=== PATIENT | male | born 1945 | race Caucasian/White ===

== ENCOUNTER 2016-10-25 13:28 | Day surgery (SDC) | payer MEDICARE ==
[~2016-10-25 13:28] MED LIST: ALPR.5 PO; AMLO5TAB2 PO; APIX2.5T PO; FERR325T PO; FURO1TAB60 PO; GLEE100T PO; GLUC1000 PO; K-TA10TA PO; LEVO100T5 PO; METO50TA PO; PAXI20TA PO; PROT40TA PO; REST30CA PO; SIMV10TA PO; SPIR100T PO; VENTAER INH; [UNRECOGNIZED DRUG - CODE] PO
--- NOTE | 2016-10-25 16:14 | RADRPT ---
EXAM DATE/TIME: 10/25/2016 00:00 [facility] COMPARISON : No previous studies available for comparison. INDICATIONS : Rectal bleeding OBJECTIVE: Temperature: 98 Heart Rate: 76 Blood Pressure: 136/75 Respiratory: 18 Oximetry: 99 PNEUMONIA VACCINE: Yes HISTORY OF PRESENT ILLNESS: Patient is a 71-year-old white male with long history of chronic hepatic insufficiency second floyd to steatohepatitis from medications. He has no history of alcohol abuse hepatitis C. The patient also has esophageal varices treated endoscopically in the past. Despite this he continues to have occ ult bleeding requiring frequent transfusions. Colonoscopy was negative. Capsule endoscopy demonstrate s angiodysplasia in the proximal jejunum and possibly in the ileum. The patient also now has had prog ression of his previously stable chronic myelogenous leukemia. Evaluation is made is for diagnostic a ngiography as well as possible embolization. The patient has just stopped Eliquis the previous day. PAST MEDICAL HISTORY : Cirhosis,fatty liver Renal insufficiency.stage unknown per patient/family Gastrointestinal bleed.GAVE+bleeding polyps Esophageal varices Leukemia Hypercholesterolemia. Hypertension. Cerebrovascular disease, TIA PAST SURGICAL HISTORY : Cardiac stents,cardiac caths 6-7 times Cholecystectomy. Nasal polyps afib,pacemaker DM2 SOCIAL HISTORY : No alcohol use.years ago socially Tobacco;none. ALLERGIES: Erythromycinswelling,anaphylaxis Demerol-N+V MEDICATIONS: Amlodipine 5 mg q.d. Paroxetine 20 mg q.d. Lasix (Furosemide) 40 mg q.d. levothyroxine 150 mcg q.d. Baclofen 10 mg q.d. Imatinib 400 mg q.d. Pantoprazole 40 mg b.i.d. Simvastatin 10 mg q.d. Sotolol 80 mg b.i.d. Sucralfate 1 gm b.i.d. IMAGING STUDIES: CT scan of the abdomen demonstrates no evidence of mesenteric artery stenosis or obvious vascular mal formation. Ascites is present. Small bowel pleural effusions are also present. ASSESSMENT: Angiodysplasia of the small bowel. PLAN: The plan is for diagnostic angiography to evaluate the previously seen angiodysplasia as well as potential therapy. The risks and benefits of angiographic intervention particularly the risk of connor l infarction following therapy were explained to the patient. They understand this and wished to proc eed with evaluation. Procedure is to be scheduled for the week of 10/29/16 TIME SPENT: 30 minutes Juan Murray MD on October 25, 2016 at 16:00 Board Certified Radiologist. This report was verified electronically.
[2016-12-21] MEDS ORDERED: VITA1000 PO (13:43)
[2016-12-21] MEDS ORDERED: VITA400C2 PO (13:43)
== END 2016-10-25 15:30 | disposition home or self-care (01) ==
LOC: HROP 13:28 → HRIP 13:37 → HROP 15:30
PROVIDERS: ATTEND Internal Medicine Gastroenterology
DX: D64.9 Anemia, unspecified (principal); K62.5 Hemorrhage of anus and rectum; C92.10 Chronic myeloid leukemia, BCR/ABL-positive, not having achieved remission; K55.20 Angiodysplasia of colon without hemorrhage; K75.81 Nonalcoholic steatohepatitis (NASH); I10 Essential (primary) hypertension; E78.00 Pure hypercholesterolemia, unspecified; Z86.73 Personal history of transient ischemic attack (TIA), and cerebral infarction without residual deficits

== ENCOUNTER → 2016-10-31 | Outpatient (CLI) | payer MEDICARE ==
[~2016-10-31] MED LIST changes: +BACL10TA PO; +PAXI30TA7 PO; +SOTA80TA6 PO; +VITA1000 PO; +VITA100064 PO; +VITA100T53 PO; +VITA400C2 PO
--- NOTE | 2016-11-01 09:57 | RSPPFT ---
DATE OF PROCEDURE: 10/31/16 COMMENTS: Spirometry with FVC of 2.7 predicted 3.8, FEV1 of 2.0 predicted 2.6, FEV1/FVC ratio 76% predicted 68%. Lung volumes are within the predicted range except for a mild increase in the RV at 2.8 predicted 2.2. DLCO is 57% of predicted. IMPRESSION: On the basis of the above, patient has a mild obstructive lung defect based on the flow volume loop and reduction of flow at the level of the "small airways". DLCO is 57% of predicted. Some air trapping is present.
== END ==
LOC: HRSP 08:07
PROVIDERS: ATTEND Internal Medicine Pulmonary Disease
DX: J90 Pleural effusion, not elsewhere classified (principal); R06.02 Shortness of breath
CPT/HCPCS: 94060; 94620; 94726; 94729

== ENCOUNTER 2016-11-15 07:33 | Day surgery (SDC) | payer MEDICARE ==
[2016-11-15] VITALS (11 sets, daily range): BP systolic 114–150; BP diastolic 52–77; PULSE 60–75; RESP 16–20; TEMP 97.8; O2SAT 97–99
[~2016-11-15] VITALS: Ht 167.6 cm; Wt 104.5 kg
[~2016-11-15 07:33] MED LIST changes: -BACL10TA PO; -PAXI30TA7 PO; -SOTA80TA6 PO; -VITA1000 PO; -VITA100064 PO; -VITA100T53 PO; -VITA400C2 PO
[2016-11-15] MEDS ORDERED: SOTA80TA6 PO (07:59)
[2016-11-15 08:31] LABS: BASOPHIL % 0.4 % (0.0-2.0); EOSINOPHIL # 0.2 TH/MM3 (0-0.4); EOSINOPHIL % 3.9 % (0.0-4.0); HEMATOCRIT 24.3 % (39.0-51.0); HEMO FLAGS DIFF FINAL; MEAN CELL VOLUME 89.6 FL (80.0-100.0); MEAN CORPUSCULAR HEMOGLOBIN 30.2 PG (27.0-34.0); MEAN CORPUSCULAR HGB CONC 33.7 % (32.0-36.0); MONO % 7.8 % (0.0-8.0); NEUT % 70.9 % (16.0-70.0); PLATELET COUNT 110 TH/MM3 (150-450); RED BLOOD COUNT 2.71 MIL/MM3 (4.50-5.90); RED CELL DISTRIBUTION WIDTH 17.4 % (11.6-17.2); WHITE BLOOD COUNT 5.6 TH/MM3 (4.0-11.0)
[2016-11-15 08:38] LABS: APTT (PATIENT) 25.6 SEC (24.3-30.1); PROTHROMBIN TIME - PATIENT 11.4 SEC (9.8-11.6)
[2016-11-15 08:49] LABS: BICARBONATE 25.9 MEQ/L (21.0-32.0); POTASSIUM 4.4 MEQ/L (3.5-5.1)
[2016-11-15] MEDS ORDERED: fentaNYL CITRATE 250 MCG/5 ML AMP ONE (09:22)
[2016-11-15] MEDS ORDERED: MIDAZOLAM HCL 5 MG/5 ML VIAL ONE (09:22)
[2016-11-15] MEDS ORDERED: GLUCAGON 1 MG/ML VIAL ONE (10:17)
[2016-11-15] MEDS ORDERED: SODIUM CHLOR 0.9% 1000 ML INJ 1,000 ML IV SCH (10:52)
--- NOTE | 2016-11-15 10:54 | PD.RAD ---
Post Procedure Progress Note Pre Procedure Diagnosis: (1) GI bleed Post Procedure Diagnosis: (1) GI bleed Procedure Date: Nov 15, 2016 Supervising Radiologist: Juan Murray Proceduralist/Assist: Blayne Steve, RT(R), Graciela Zepeda RT(R)() Anesthesia: Conscious Sedation Plan of Activity Patient to Unit: ROPU Patient Condition: Good See PACS Report for procedural detail/treatment Vascular-Arterial Procedure Procedure 1 Procedure Site: Abdominal Procedure(s): Angiogram Access Access Site(s): Right Femoral Artery Closure Site(s): Right manual pressure Juan Murray MD Nov 15, 2016 10:53
[2016-11-15] MEDS ORDERED: IODIXANOL 320 MG/ML 50 ML VIAL (for RAD SPEC) I-ARTERIAL ONE (10:58)
[2016-11-15] MEDS ORDERED: oxyCODONE/ACETAMINOPHEN 5 MG/325 MG TAB PO PRN (11:00)
[2016-11-15] MEDS ORDERED: ACETAMINOPHEN 325 MG TAB PO PRN (11:00)
--- NOTE | 2016-12-10 11:12 | RADRPT ---
EXAM DATE/TIME: 11/15/2016 09:32 [facility] COMPARISON: ANGIOGRAM, SELECT + VESSEL, November 15, 2016, 0:00. ANGIOGRAM, SELECT + VESSEL, November 15, 2016, 0:00. ANGIOGRAM, SMA, November 15, 2016, 0:00. INDICATIONS : Patient is in need of a mesenteric angiogram for evaluation of rectal bleeding. MEDICAL HISTORY : History of liver cirrhosis, portal hypertension, esophageal varices, gastric polyps, hiatal hernia, d iverticulosis, internal rectal hemorrhoids, colon avm, fatty liver, hypothyroidism, aortic atheroscle rosis, AFIB, HTN, DM, [place], TIA, CHF, pleural effusion, angina, leukemia, lumbar spondylosis, dementia, hyperlipidemia. SURGICAL HISTORY : History of cardiac catheterization, cholecystectomy, pacemaker, EGD and colonoscopy, esophageal jesi ng, polypectomy. ENCOUNTER: Initial ACUITY: > 1 year PAIN SCORE: 0/10 FLUORO TIME: 12.0 minutes IMAGE SERIES: 20 ACCESS SITE: Right Femoral artery SEDATION TIME: 30 minutes CONTRAST: 1.) 153 cc Visipaque (iodixanol) MEDICATION(S): 1.) 5 mg midazolam (Versed) IV 2.) 250 mcg fentanyl (Sublimaze) IV 3.) 1 mg glucagon IV DEVICE(S): 1.) Right common femoral artery Syvek pad PROCEDURE : 1. Ultrasound-guided puncture of the access site. 2. Conscious sedation with continuous EKG and Oximetry monitoring. 3. Angiography of the abdominal aorta 4. Angiography of the celiac axis 5. Angiography of the superior mesenteric artery 6. Subselective angiography ileocolic branch The risks, benefits and alternatives to the procedure were explained and verbal and written consent w as obtained. The site was prepped in sterile fashion. Full sterile technique was used, including ca p, mask, sterile gloves and gown and a large sterile sheet. Hand hygiene and 2% chlorhexidine and/or betadine/alcohol prep was utilized per protocol for cutaneous antisepsis. The skin and subcutaneous tissues were infiltrated with local anesthetic solution. With ultrasound and fluoroscopic guidance the selected artery was punctured and a vascular sheath was placed An omni-flush catheter was placed the abdominal aorta and digital AP AP and lateral angiography was p erformed. Catheter was then exchanged for the catheter where angiography of the celiac axis was perfo rmed.. Catheter was then advanced into the gastroduodenal artery where AP angiography was performed. The catheter was next placed into the superior mesenteric artery where AP and lateral runs were obtai demetri. The catheter was next passed into the ileocolic branch where the most probable abnormality was t hought to be present by endoscopy No arteriovenous malformation is identified. There is good filling of the superior mesenteric artery without evidence of stenosis. The venous phase is unremarkable. Injection of the celiac axis demonstr ates no other malady. The gastroduodenal artery is truncated which may be related to previous therapy . No coils are identified. The puncture site was closed with manual pressure and hemostasis was obtained. The patient tolerated the procedure well and there were no complications. Conscious sedation was performed with the prescribed dosages and duration as above in the presence of an independent trained radiology nurse to assist in the monitoring of the patient. EKG and oximetry remained stable throughout the procedure. CONCLUSION: 1. Negative mesenteric angiography. No vascular malformations identified Juan Murray MD on December 10, 2016 at 10:49 Board Certified Radiologist. This report was verified electronically.
[2016-12-21] MEDS ORDERED: VITA400C2 PO (13:43)
[2016-12-21] MEDS ORDERED: VITA1000 PO (13:43)
== END 2016-11-15 17:14 | disposition home or self-care (01) ==
LOC: HROP 07:33 → HRIP 07:34 → HROP 17:14
PROVIDERS: ATTEND Internal Medicine Gastroenterology
DX: K92.2 Gastrointestinal hemorrhage, unspecified (principal); D64.9 Anemia, unspecified; I48.91 Unspecified atrial fibrillation; I10 Essential (primary) hypertension; K74.60 Unspecified cirrhosis of liver; E03.9 Hypothyroidism, unspecified; E78.5 Hyperlipidemia, unspecified; E11.9 Type 2 diabetes mellitus without complications; Z86.73 Personal history of transient ischemic attack (TIA), and cerebral infarction without residual deficits; Z87.19 Personal history of other diseases of the digestive system; Z95.0 Presence of cardiac pacemaker; Z79.01 Long term (current) use of anticoagulants
CPT/HCPCS: 36245; 36247; 75726; 75774; 76937; 80048; 85025; 85610; 85730; 99152; 99153; C1769; C1887; C1894; J1610; J1642; J2250; J3010; Q9967

== ENCOUNTER → 2016-12-21 | Outpatient (CLI) | payer MEDICARE ==
[~2016-12-21] VITALS: Ht 165.1 cm; Wt 106.6 kg
[~2016-12-21] MED LIST changes: -APIX2.5T PO; +BACL10TA PO; +CHLORHEXIDINE GLUCONATE 2 % 1 PACK (2 CLOTHS) TOPICAL PRN; -GLUC1000 PO; +INSULIN HUMAN REGULAR 1,000 UNITS/10 ML VIAL SQ PRN; +LACTATED RINGER'S 1000 ML IV PRN; -METO50TA PO; +METOPROLOL TARTRATE 25 MG TAB PO PRN; +PAXI30TA7 PO; +POVIDONE IODINE 5% (ANTISEPSIS KIT) 4 APPLICATIONS EACH NARE PRN; +PROPOFOL 200 MG/20 ML AMP IV ONE; +SODIUM CHLORID 0.9% 500 ML IV PRN; +SOTA80TA6 PO; +VITA1000 PO; +VITA100064 PO; +VITA100T53 PO; +VITA400C2 PO; -[UNRECOGNIZED DRUG - CODE] PO
[2016-12-21 14:00] VITALS: BP 121/60; PULSE 62; RESP 16; TEMP 98.3; O2SAT 99
[2016-12-21 16:22] VITALS: TEMP 97.7
[2016-12-21 16:32] VITALS: BP 128/65; PULSE 60; RESP 16; O2SAT 98
--- NOTE | 2016-12-21 16:32 | GIPROC ---
[facility] [address] [facility]. [facility] [place], [address] ENTEROSCOPY PROCEDURE REPORT EXAM DATE: 12/21/2016 PATIENT NAME: Pa Quintero MR#: [id number] BIRTHDATE: 1945 ATTENDING: Christian Ladd MD ORDER #: [id number] EMERGENCY MAN: Ralph Mason and Gerald Escobar STATUS: outpatient INDICATIONS: The patient is a 71 yr old male here for an enteroscopy procedure due to control bleeding and anemia PROCEDURE PERFORMED: Small bowel enteroscopy with control of bleeding Small bowel enteroscopy with ablation therapy MEDICATIONS: None and Per Anesthesia. CONSENT: The patient understands the risks and benefits of the procedure and understands that these risks include, but are not limited to: sedation, allergic reaction, infection, perforation and/or bleeding. Alternative means of evaluation and treatment include, among others: physical exam, x-rays, and/or surgical intervention. The patient elects to proceed with this endoscopic procedure. medical equipment was checked for proper function. Hand hygiene and appropriate measures for infection prevention was taken. After the risks, benefits and alternatives of the procedure were thoroughly explained, Informed consent was verified, confirmed and timeout was successfully executed by the treatment team. The [id number] (Pedi C) endoscope was introduced through the mouth and advanced to the jejunal crest jejunum. The prep was good. The instrument was then slowly withdrawn while examining the mucosa circumferentially. The scope was then completely withdrawn from the patient and the procedure terminated. The pulse, BP, and O2 saturation were monitored and documented by the physician and the nursing staff throughout the entire procedure. The patient was cared for as planned according to standard protocol, then discharged to recovery in stable condition and with appropriate post procedure care. An a.v. malformation was found in the third portion of the duodenum. An a.v. malformation was found in the proximal jejunum. these were treated with APC, also patient has GAVEs with 3 areas that oozing small amount of bleed treated with APC with bleeding control ADVERSE EVENTS: There were no complications. IMPRESSIONS: 1. An a.v. malformation was found in the third portion of the duodenum treated with APC 2. An a.v. malformation was found in the proximal jejunum treated with APC 3- GAVEs with 3 areas oozing some blood treated with APC RECOMMENDATIONS: FU CBC in 1 week RECALL: enteroscopy with APC in 2 wks Christian Ladd MD eSigned: Christian Ladd MD 12/21/2016 4:32 PM cc: Dallas Song M.D. PATIENT NAME: Pa Quintero MR#: [id number]
== END ==
LOC: HEND 12:34 → EDSTATUS 14:20
PROVIDERS: ATTEND Hospitalist
DX: K31.811 Angiodysplasia of stomach and duodenum with bleeding (principal); D64.9 Anemia, unspecified; K74.60 Unspecified cirrhosis of liver; I11.0 Hypertensive heart disease with heart failure; I50.9 Heart failure, unspecified; I25.2 Old myocardial infarction; Z86.73 Personal history of transient ischemic attack (TIA), and cerebral infarction without residual deficits
CPT/HCPCS: 00740; 43255; J7120

== ENCOUNTER 2017-03-06 15:35 | Emergency (ER) | payer MEDICARE ==
[~2017-03-06] VITALS: Ht 165.1 cm; Wt 107.0 kg
[~2017-03-06 15:35] MED LIST changes: -BACL10TA PO; -CHLORHEXIDINE GLUCONATE 2 % 1 PACK (2 CLOTHS) TOPICAL PRN; -INSULIN HUMAN REGULAR 1,000 UNITS/10 ML VIAL SQ PRN; -LACTATED RINGER'S 1000 ML IV PRN; -METOPROLOL TARTRATE 25 MG TAB PO PRN; -PAXI30TA7 PO; -POVIDONE IODINE 5% (ANTISEPSIS KIT) 4 APPLICATIONS EACH NARE PRN; -PROPOFOL 200 MG/20 ML AMP IV ONE; -SODIUM CHLORID 0.9% 500 ML IV PRN; -VENTAER INH; -VITA100064 PO; -VITA100T53 PO
[2017-03-06 15:42] VITALS: BP 138/76; PULSE 80; RESP 16; TEMP 98; O2SAT 99
--- NOTE | 2017-03-06 16:15 | PD ---
HPI Chief Complaint: Musculoskeletal Complaint Time Seen by Provider: 16:04 Travel History International Travel<30 days: No Contact w/Intl Traveler<30days: No Traveled to known affect area: No History of Present Illness HPI 71-year-old male with history of CML, cirrhosis, esophageal varices, anemia, here for evaluation of left upper extremity edema. The patient noted the edema 2 days ago. He states that there was an area of erythema that he also noticed on his distal left forearm. He denies trauma. Complains of tightness in the arm, no real pain. He is having some shortness of breath, however he usually has short use of breath and is followed by jackhammer operator Dr. Mo. He had lab work performed earlier today and showed a hemoglobin of 6.6 and is scheduled for a blood transfusion tomorrow with his financial analyst Dr. Clarke. He was also seen today by his drywall sprayer Dr. Thorpe who is concerned about possible DVT in the left upper extremity. Patient denies history of DVT or PE. 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) Anxiety: No Depression: No Cancer: Yes (basal cell carcinoma) Cardiovascular Problems: Yes (atrial fibrillation with PPM, MD, STENTx2, PACEMAKER) Chemotherapy: Yes (LEUKEMIA>ORAL) Chest Pain: Yes Coronary Artery Disease: Yes Diabetes: No Diminished Hearing: No Endocrine: Yes Gastrointestinal Disorders: Yes (CIRRHOSIS, DRUG INDUCED) Genitourinary: Yes (DIFFICULTY EMPTYING BLADDER) Hepatitis: No Hiatal Hernia: Yes Hypertension: Yes Immune Disorder: Yes (LEUKEMIA) Implanted Vascular Access Dvce: Yes (POWER PORT LEFT) Musculoskeletal: Yes (DDD, cramps in bilat hands & legs) Neurologic: Yes (HX CVA, 2 NUMB FINGERS TO RIGHT HAND) Psychiatric: Yes (ANXIETY, DEPRESSION) Reproductive: No Respiratory: Yes (pleural effusion) Myocardial Infarction: Yes Thyroid Disease: Yes (HYPO) Tetanus Vaccination: < 5 Years Influenza Vaccination: Yes Past Surgical History Abdominal Surgery: Yes (cholecystectomy) AICD: No Body Medical Devices: CARDIAC STENT X 2, RIGHT CHEST INFUSAPORT Cardiac Surgery: No (CARDIAC STENTS, PACEMAKER) Coronary Stent: Yes Ear Surgery: No Endocrine Surgery: No Eye Surgery: No Genitourinary Surgery: Yes (urethral strictures) Gynecologic Surgery: No Joint Replacement: No Neurologic Surgery: No Oral Surgery: Yes (sinus surgery) Pacemaker: Yes (MEDTRONIC [id number]) Thoracic Surgery: Yes (RIGHT CHEST INFUSAPORT) Other Surgery: Yes (2017 BALLOONING FOR ESOPHAGEAL VARICES) Social History Alcohol Use: No Tobacco Use: No Substance Use: No Allergies-Medications (Allergen,Severity, Reaction): Coded Allergies: ASHISH Inhibitors (Verified Allergy, Severe, ANGIOEDEMA, 03/06/17) Demerol (Verified Allergy, Severe, 03/06/17) nausea headache Amiodarone (Verified Adverse Reaction, Intermediate, Swelling, 03/06/17) TONGUE AND MOUTH AND GENERALIZED EDEMA Uncoded Allergies: DASATINIB (Adverse Reaction, Unknown, Edema, 08/27/14) CAUSED PLEURAL EFFUSION-HAD THORACENTESIS Reported Meds & Prescriptions Reported Meds & Active Scripts Active Reported Baclofen 10 Mg Tab 10 Mg PO HS PRN Vitamin D (Cholecalciferol) 1,000 Unit Tab 1,000 Units PO DAILY Vitamin C (Ascorbic Acid) 100 Mg Tablet 500 Mg PO DAILY Paxil (Paroxetine HCl) 30 Mg Tab 20 Mg PO HS Vitamin D-1000 (Cholecalciferol) 1,000 Unit Tab 1,000 Units PO DAILY Sotalol (AF) (Sotalol (Afib/Afl)) 80 Mg Tab 80 Mg PO BID Xanax (Alprazolam) 0.5 Mg Tab 0.5 Mg PO BID PRN Simvastatin 10 Mg Tab 10 Mg PO HS Restoril (Temazepam) 30 Mg Cap 30 Mg PO HS PRN Protonix (Pantoprazole Sodium) 40 Mg Tab 40 Mg PO BID Levothyroxine (Levothyroxine Sodium) 100 Mcg Tab 150 Mcg PO DAILY Lasix (Furosemide) 40 Mg Tab 40 Mg PO DAILY K-Tab (Potassium Chloride) 10 Meq Tab 10 Meq PO DAILY Gleevec (Imatinib Mesylate) 100 Mg Tab 400 Mg PO DAILY Amlodipine (Amlodipine Besylate) 5 Mg Tab 5 Mg PO BID Review of Systems Except as stated in HPI: all other systems reviewed are Neg Physical Exam Narrative GENERAL: Well-developed, well-nourished, no apparent distress. SKIN: Focused skin assessment warm/dry. Distal left/posterior/medial forearm with a small area of erythema without warmth, without induration, without fluctuance, without red streaks. HEAD: Atraumatic. Normocephalic. EYES: Pupils equal and round. No scleral icterus. No injection or drainage. ENT: Mucous membranes pink and moist. NECK: Trachea midline. No JVD. CARDIOVASCULAR: Regular rate and rhythm. Bilateral distal radial pulses are brisk and equal. RESPIRATORY: No accessory muscle use. Clear to auscultation. Breath sounds equal bilaterally. GASTROINTESTINAL: Abdomen soft, non-tender, nondistended. MUSCULOSKELETAL: No obvious deformities. No clubbing. No cyanosis. Moderate left upper extremity edema from hand to arm. NEUROLOGICAL: Awake and alert. No obvious cranial nerve deficits. Motor grossly within normal limits. Normal speech. PSYCHIATRIC: Appropriate mood and affect; insight and judgment normal. Data Data Last Documented VS Vital Signs Date Time Temp Pulse Resp B/P Pulse Ox O2 Delivery O2 Flow Rate FiO2 03/06/17 15:53 80 16 03/06/17 15:42 98.0 138/76 99 Orders Us Arm Venous Doppler (03/06/17 ) MDM Medical Decision Making Medical Screen Exam Complete: Yes Emergency Medical Condition: Yes Medical Record Reviewed: Yes Differential Diagnosis DVT, lymphedema, Narrative Course Left upper extremity venous ultrasound: Negative for DVT. Generalized soft tissue swelling. Patient and the patient's were provided a copy of this ultrasound report. Since he has been in the emergency department he has been keeping the extremity elevated and there is moderate improvement in the amount of edema. All compartments in the left upper extremity are supple. No signs of compartment syndrome. Patient is stable for discharge home. He has an appointment tomorrow to have a blood transfusion. I told him to discussed the arm swelling with his oncologist tomorrow as well. He was informed on when to return to the emergency department. He verbalizes understanding and agreement with plan. Diagnosis Primary Impression: Edema of upper extremity Referrals: Oncologist 1 day Additional Instructions: Follow-up with your oncologist tomorrow as scheduled for blood transfusion. Return to the emergency department for worsening symptoms or any other concerns as discussed. Disposition: 01 DISCHARGE HOME Condition: Stable Jc Partida MD Mar 06, 2017 16:15
[2017-03-06] MEDS ORDERED: PAXI30TA7 PO (16:47)
[2017-03-06] MEDS ORDERED: VITA100T53 PO (16:51)
[2017-03-06] MEDS ORDERED: BACL10TA PO (16:51)
[2017-03-06] MEDS ORDERED: VITA100064 PO (16:51)
--- NOTE | 2017-03-06 17:31 | RADRPT ---
EXAM DATE/TIME: 03/06/2017 16:53 [facility] COMPARISON: No previous studies available for comparison. INDICATIONS : Left arm swelling. MEDICAL HISTORY : Alzheimer's. Myocardial infarction. Hernia, umbilical. Thyroid disease. Tremors left leg. Afib. CAD. Chest pain. HTN. Pleural effusion. GI Bleed. Esophageal varices. Degenerative disc disease. Arthritis . Diabetes. Leukemia. Anemia. CML cancer. Depression. Anxiety. SURGICAL HISTORY : Coronary artery stent. Pacemaker. Cholecystectomy. Sinus surgery. Cardiac cath. Right chest infusapo rt. Urethral strictures. Chemotherapy. Blood transfusions. ENCOUNTER: Initial ACUITY: 2 day PAIN SCORE: 0/10 LOCATION: Left arm. FINDINGS: There is spontaneous flow documented in the brachial, basilic, cephalic, axillary, and subclavian vei ns. The vessels are compressible and augmentation response is documented. No filling defects are se en. The flow is phasic with respiration. Direction of flow in the jugular vein is caudal. CONCLUSION: Negative for deep venous thrombosis. Generalized soft tissue swelling. Jarod Laws MD FACR on March 06, 2017 at 17:28 Board Certified Radiologist. This report was verified electronically.
== END 2017-03-06 18:05 | disposition home or self-care (01) ==
LOC: PHED 15:35
DX: M79.89 Other specified soft tissue disorders (principal); D69.2 Other nonthrombocytopenic purpura; I48.91 Unspecified atrial fibrillation; I25.2 Old myocardial infarction; I25.10 Atherosclerotic heart disease of native coronary artery without angina pectoris; I10 Essential (primary) hypertension; Z95.5 Presence of coronary angioplasty implant and graft; Z86.73 Personal history of transient ischemic attack (TIA), and cerebral infarction without residual deficits; Z95.0 Presence of cardiac pacemaker
CPT/HCPCS: 93971; 99284

== ENCOUNTER 2017-07-11 08:20 | Day surgery (SDC) | payer MEDICARE ==
[~2017-07-11 08:20] MED LIST changes: +BACL10TA PO; -FERR325T PO; -PAXI20TA PO; +PAXI30TA7 PO; -SPIR100T PO; +VITA100064 PO; +VITA100T53 PO; -VITA400C2 PO
[2017-07-11 08:56] VITALS: BP 124/62; PULSE 64; RESP 18; TEMP 98; O2SAT 96
[2017-07-11] MEDS ORDERED: LIDOCAINE HCL 1% 20 ML VIAL ONE (09:49)
[2017-07-11 09:50] VITALS: BP 126/62; PULSE 63; RESP 20; TEMP 97.9; O2SAT 96
--- NOTE | 2017-07-11 10:02 | RADRPT ---
EXAM DATE/TIME: 07/11/2017 08:55 [facility] COMPARISON: No previous studies available for comparison. EXTERNAL COMPARISON: [facility], CT Abdomen, Nov 03 2012 INDICATIONS : Ascites. MEDICAL HISTORY : Hypertension. CHF. Afib. CAD. Cerebral infarct. Leukemia. Cirrhosis. Diabetic. Renal disease. Diverticulosis. Esophageal varices. Hiatal hernia. Hypothyroid. MO. TIA. SURGICAL HISTORY : Cardiac catheterization. Esophageal banding. Cholecystectomy. Colonoscopy. EGD. Pacemaker. Sten t. Sinus surgery. ENCOUNTER: Initial ACUITY: 1 week PAIN SCORE: 8/10 LOCATION: Left lower quadrant FLUID: Total volume of 4600 cc of clear, yellow fluid was removed. Fluid was discarded. Paracentesis was therapeutic only. Post procedure scanning reveals no hematoma or other complication. TECHNIQUE: 1. Ultrasound guidance for abdominal paracentesis. 2. Paracentesis. The risks, benefits, and alternatives to ultrasound guided paracentesis were explained to the patient in detail including the risk of bleeding and infection. Written and verbal informed consent was obt ained. With the patient on the ultrasound table, ultrasound imaging was used to select the most appropriate approach for paracentesis. Overlying skin was prepped and draped in the usual sterile fashion and wi th a local anesthetic, a dermatotomy was made with an 11 blade scalpel. A 6 Y[place] [id number] ca theter was introduced into the peritoneal cavity and fluid was collected. The patient tolerated the procedure well and left the ultrasound suite in stable condition. CONCLUSION: Uncomplicated ultrasound guided paracentesis. Carlos Shah MD on July 11, 2017 at 10:01 Board Certified Radiologist. This report was verified electronically.
--- NOTE | 2017-07-11 10:02 | RADRPT ---
EXAM DATE/TIME: 07/11/2017 08:55 [facility] COMPARISON: No previous studies available for comparison. EXTERNAL COMPARISON: [facility], CT Abdomen, Nov 03 2012 INDICATIONS : Ascites. MEDICAL HISTORY : Hypertension. CHF. Afib. CAD. Cerebral infarct. Leukemia. Cirrhosis. Diabetic. Renal disease. Diverticulosis. Esophageal varices. Hiatal hernia. Hypothyroid. MA. TIA. SURGICAL HISTORY : Cardiac catheterization. Esophageal banding. Cholecystectomy. Colonoscopy. EGD. Pacemaker. Sten t. Sinus surgery. ENCOUNTER: Initial ACUITY: 1 week PAIN SCORE: 8/10 LOCATION: Left lower quadrant FLUID: Total volume of 4600 cc of clear, yellow fluid was removed. Fluid was discarded. Paracentesis was therapeutic only. Post procedure scanning reveals no hematoma or other complication. TECHNIQUE: 1. Ultrasound guidance for abdominal paracentesis. 2. Paracentesis. The risks, benefits, and alternatives to ultrasound guided paracentesis were explained to the patient in detail including the risk of bleeding and infection. Written and verbal informed consent was obt ained. With the patient on the ultrasound table, ultrasound imaging was used to select the most appropriate approach for paracentesis. Overlying skin was prepped and draped in the usual sterile fashion and wi th a local anesthetic, a dermatotomy was made with an 11 blade scalpel. A 6 [place] Rfk-P-kymecibr ca theter was introduced into the peritoneal cavity and fluid was collected. The patient tolerated the procedure well and left the ultrasound suite in stable condition. CONCLUSION: Uncomplicated ultrasound guided paracentesis. Carlos Shah MD on July 11, 2017 at 10:01 Board Certified Radiologist. This report was verified electronically.
--- NOTE | 2017-07-11 10:02 | RADRPT ---
EXAM DATE/TIME: 07/11/2017 08:55 [facility] COMPARISON: No previous studies available for comparison. EXTERNAL COMPARISON: [facility], CT Abdomen, Nov 03 2012 INDICATIONS : Ascites. MEDICAL HISTORY : Hypertension. CHF. Afib. CAD. Cerebral infarct. Leukemia. Cirrhosis. Diabetic. Renal disease. Diverticulosis. Esophageal varices. Hiatal hernia. Hypothyroid. [place]. TIA. SURGICAL HISTORY : Cardiac catheterization. Esophageal banding. Cholecystectomy. Colonoscopy. EGD. Pacemaker. Sten t. Sinus surgery. ENCOUNTER: Initial ACUITY: 1 week PAIN SCORE: 8/10 LOCATION: Left lower quadrant FLUID: Total volume of 4600 cc of clear, yellow fluid was removed. Fluid was discarded. Paracentesis was therapeutic only. Post procedure scanning reveals no hematoma or other complication. TECHNIQUE: 1. Ultrasound guidance for abdominal paracentesis. 2. Paracentesis. The risks, benefits, and alternatives to ultrasound guided paracentesis were explained to the patient in detail including the risk of bleeding and infection. Written and verbal informed consent was obt ained. With the patient on the ultrasound table, ultrasound imaging was used to select the most appropriate approach for paracentesis. Overlying skin was prepped and draped in the usual sterile fashion and wi th a local anesthetic, a dermatotomy was made with an 11 blade scalpel. A 6 Ukrainian [id number]-B-ienmpyhk ca theter was introduced into the peritoneal cavity and fluid was collected. The patient tolerated the procedure well and left the ultrasound suite in stable condition. CONCLUSION: Uncomplicated ultrasound guided paracentesis. Carlos Shah MD on July 11, 2017 at 10:01 Board Certified Radiologist. This report was verified electronically.
[2017-07-11 10:05] VITALS: BP 118/57; PULSE 60; RESP 18; O2SAT 98
== END 2017-07-11 10:13 | disposition home or self-care (01) ==
LOC: HRAD 08:20 → HRIP 08:26 → HRAD 10:13
PROVIDERS: ATTEND Internal Medicine Gastroenterology
DX: R18.8 Other ascites (principal); I25.10 Atherosclerotic heart disease of native coronary artery without angina pectoris; I11.0 Hypertensive heart disease with heart failure; I50.9 Heart failure, unspecified; I48.91 Unspecified atrial fibrillation; E11.9 Type 2 diabetes mellitus without complications; E03.9 Hypothyroidism, unspecified; I25.2 Old myocardial infarction; Z95.0 Presence of cardiac pacemaker; Z86.73 Personal history of transient ischemic attack (TIA), and cerebral infarction without residual deficits; Z95.5 Presence of coronary angioplasty implant and graft
CPT/HCPCS: 49083; C1729

== ENCOUNTER 2017-07-31 14:16 | Inpatient (IN) | payer MEDICARE ==
[2017-07-31] VITALS (9 sets, daily range): BP systolic 118–152; BP diastolic 56–67; PULSE 60–72; RESP 17–20; TEMP 97.9–99; O2SAT 95–100
[~2017-07-31] VITALS: Ht 167.6 cm; Wt 91.9 kg
--- NOTE | 2017-07-31 15:05 | PD ---
Physical Exam Date Seen by Provider: Jul 31, 2017 Time Seen by Provider: 15:03 Narrative Patient was sent here by his oncologist for a blood transfusion and paracentesis. "Abdominal" labs have been ordered including a PT and PTT. Type and screen has also been ordered. Data Data Last Documented VS Vital Signs Date Time Temp Pulse Resp B/P (MAP) Pulse Ox O2 Delivery O2 Flow Rate FiO2 07/31/17 14:20 97.9 63 18 123/58 (79) 100 Room Air Orders Orders Complete Blood Count With Diff (07/31/17 15:02) Comprehensive Metabolic Panel (07/31/17 15:02) Prothrombin Time / Inr (Pt) (07/31/17 15:02) Act Partial Throm Time (Ptt) (07/31/17 15:02) Iv Access Insert/Monitor (07/31/17 15:02) Type And Screen (07/31/17 15:02) Sodium Chlor 0.9% 250 Ml Inj (Ns 250 Ml (07/31/17 15:15) MDM Supervised Visit with KEIRY: Radha Amado MD Jul 31, 2017 15:05
[2017-07-31] MEDS ORDERED: SODIUM CHLOR 0.9% 250 ML INJ 250 ML IV ONE ×2 (15:15→16:30)
--- NOTE | 2017-07-31 15:19 | PD ---
HPI Chief Complaint: Abnormal Results Time Seen by Provider: 15:11 Travel History International Travel<30 days: No Contact w/Intl Traveler<30days: No Traveled to known affect area: No History of Present Illness HPI Patient is a 71-year-old male with a history of chronic leukemia chronic GI bleeding presents emergency department at the behest of his oncologist Dr. Tran for workup for GI problems. The patient after discussing with Dr. Tran apparently has needed transfusions fairly frequently over the past 2 years since she started bleeding. D-dimer review of the records from [place] shows that he's had 60 units of blood. He apparently came to the office today complaining of abdominal distention and increasing ascites, he was due to have another transfusion of 2 units of PRBCs. The patient has also been to multiple other providers to control his internal bleeding and has been unsuccessful to do so. He has even been to the [facility] and has had multiple colonoscopies and endoscopies all proving unfruitful. The patient complains of abdominal distention and fatigue at this time. Otherwise he states he feels at his baseline. No fevers no shortness of breath no presyncopal symptoms no abdominal pain. Symptoms are moderate, gradually worsening, context as above, location as above. 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) Anxiety: Yes Depression: Yes Cancer: Yes (CML) Cardiac Catheterization: Yes Cardiovascular Problems: Yes (atrial fibrillation with PPM, [place], STENTx2, PACEMAKER) Chemotherapy: Yes (PO ) Chest Pain: Yes Coronary Artery Disease: Yes Diabetes: Yes (HX BUT CURRENTLY UNMEDICATED) Patient Takes Glucophage: No Diminished Hearing: No Endocrine: Yes Gastrointestinal Disorders: Yes (GI bleed, ESOPHAGEAL VARIOUSES, UMBILICAL HERNIA) Genitourinary: Yes (DIFFICULTY EMPTYING BLADDER) Hepatitis: No Hiatal Hernia: Yes Hypertension: Yes Immune Disorder: Yes (LEUKEMIA) Implanted Vascular Access Dvce: Yes (POWER PORT LEFT) Medical other: Yes (CIRROSIS OF LIVER) Musculoskeletal: Yes (DDD, cramps in bilat hands & legs) Neurologic: Yes (TREMORS LEFT LEG) Psychiatric: Yes (ANXIETY, DEPRESSION) Reproductive: No Respiratory: Yes (pleural effusion) Myocardial Infarction: Yes Radiation Therapy: No Thyroid Disease: Yes Tetanus Vaccination: Unknown Influenza Vaccination: No Past Surgical History Abdominal Surgery: Yes (cholecystectomy) AICD: No Body Medical Devices: CARDIAC STENT X 2, RIGHT CHEST INFUSAPORT Cardiac Surgery: Yes (STENTS PLACED, PACE MAKER) Cholecystectomy: Yes Coronary Stent: Yes Ear Surgery: No Endocrine Surgery: No Eye Surgery: No Genitourinary Surgery: Yes (URETHRAL STRICTURES) Gynecologic Surgery: No Joint Replacement: No Neurologic Surgery: No Oral Surgery: Yes (SINUS SX) Pacemaker: Yes (MEDTRONIC [id number]) Thoracic Surgery: Yes (RIGHT CHEST INFUSAPORT) Other Surgery: Yes (2017 BALLOONING FOR ESOPHAGEAL VARICES, CHEST PORT PLACEMENT) Social History Alcohol Use: No Tobacco Use: No Substance Use: No Allergies-Medications (Allergen,Severity, Reaction): Coded Allergies: benazepril (Unverified Allergy, Severe, ANGIOEDEMA, 07/31/17) captopril (Unverified Allergy, Severe, ANGIOEDEMA, 07/31/17) enalaprilat (Unverified Allergy, Severe, ANGIOEDEMA, 07/31/17) fosinopril (Unverified Allergy, Severe, ANGIOEDEMA, 07/31/17) lisinopril (Unverified Allergy, Severe, ANGIOEDEMA, 07/31/17) meperidine (Unverified Allergy, Severe, 07/31/17) nausea headache quinapril (Unverified Allergy, Severe, ANGIOEDEMA, 07/31/17) amiodarone (Unverified Adverse Reaction, Intermediate, Swelling, 07/31/17) TONGUE AND MOUTH AND GENERALIZED EDEMA Uncoded Allergies: DASATINIB (Adverse Reaction, Unknown, Edema, 08/27/14) CAUSED PLEURAL EFFUSION-HAD THORACENTESIS Reported Meds & Prescriptions Reported Meds & Active Scripts Active Reported Vitamin C (Ascorbic Acid) 100 Mg Tablet 500 Mg PO DAILY Paxil (Paroxetine HCl) 30 Mg Tab 20 Mg PO HS Vitamin D-1000 (Cholecalciferol) 1,000 Unit Tab 1,000 Units PO DAILY Sotalol (AF) (Sotalol (Afib/Afl)) 80 Mg Tab 80 Mg PO BID Xanax (Alprazolam) 0.5 Mg Tab 0.5 Mg PO BID PRN Simvastatin 10 Mg Tab 10 Mg PO HS Restoril (Temazepam) 30 Mg Cap 30 Mg PO HS PRN Protonix (Pantoprazole Sodium) 40 Mg Tab 40 Mg PO BID Levothyroxine (Levothyroxine Sodium) 100 Mcg Tab 150 Mcg PO DAILY Lasix (Furosemide) 40 Mg Tab 40 Mg PO DAILY K-Tab (Potassium Chloride) 10 Meq Tab 10 Meq PO DAILY Gleevec (Imatinib Mesylate) 100 Mg Tab 400 Mg PO DAILY Amlodipine (Amlodipine Besylate) 5 Mg Tab 5 Mg PO BID Review of Systems Except as stated in HPI: all other systems reviewed are Neg Physical Exam Narrative GENERAL: Well-developed well-nourished no obvious distress SKIN: Focused skin assessment warm/dry. HEAD: Atraumatic. Normocephalic. EYES: Pupils equal and round. No scleral icterus. No injection or drainage. ENT: No nasal bleeding or discharge. Mucous membranes pink and moist. NECK: Trachea midline. No JVD. CARDIOVASCULAR: Regular rate and rhythm. No murmur appreciated. RESPIRATORY: No accessory muscle use. Clear to auscultation. Breath sounds equal bilaterally. GASTROINTESTINAL: Abdomen soft, non-tender, fairly distended with positive fluid wave. Hepatic and splenic margins not palpable. MUSCULOSKELETAL: No obvious deformities. No clubbing. No cyanosis. No edema. NEUROLOGICAL: Awake and alert. No obvious cranial nerve deficits. Motor grossly within normal limits. Normal speech. PSYCHIATRIC: Appropriate mood and affect; insight and judgment normal. Data Data Last Documented VS Vital Signs Date Time Temp Pulse Resp B/P (MAP) Pulse Ox O2 Delivery O2 Flow Rate FiO2 07/31/17 16:25 60 17 138/60 (86) 98 Room Air 07/31/17 14:20 97.9 Orders Orders Complete Blood Count With Diff (07/31/17 15:) Comprehensive Metabolic Panel (07/31/17 15:) Prothrombin Time / Inr (Pt) (07/31/17 15:) Act Partial Throm Time (Ptt) (07/31/17 15:) Iv Access Insert/Monitor (07/31/17 15:) Type And Screen (07/31/17 15:) Sodium Chlor 0.9% 250 Ml Inj (Ns 250 Ml (07/31/17 15:15) Red Blood Cells (Rbc) (07/31/17 16:28) Blood Product Administration (07/31/17 16:28) Sodium Chlor 0.9% 250 Ml Inj (Ns 250 Ml (11/15/17 16:30) Admit Order (Ed Use Only) (07/31/17 ) Labs Laboratory Tests Test 07/31/17 15:15 White Blood Count 4.2 TH/MM3 Red Blood Count 2.61 MIL/MM3 Hemoglobin 8.0 GM/DL Hematocrit 24.2 % Mean Corpuscular Volume 92.8 FL Mean Corpuscular Hemoglobin 30.8 PG Mean Corpuscular Hemoglobin Concent 33.1 % Red Cell Distribution Width 18.3 % Platelet Count 104 TH/MM3 Mean Platelet Volume 8.6 FL Neutrophils (%) (Auto) 69.9 % Lymphocytes (%) (Auto) 17.0 % Monocytes (%) (Auto) 9.3 % Eosinophils (%) (Auto) 3.1 % Basophils (%) (Auto) 0.7 % Neutrophils # (Auto) 2.9 TH/MM3 Lymphocytes # (Auto) 0.7 TH/MM3 Monocytes # (Auto) 0.4 TH/MM3 Eosinophils # (Auto) 0.1 TH/MM3 Basophils # (Auto) 0.0 TH/MM3 CBC Comment DIFF FINAL Differential Comment Prothrombin Time 13.0 SEC Prothromb Time International Ratio 1.2 RATIO Activated Partial Thromboplast Time 30.1 SEC Blood Urea Nitrogen 12 MG/DL Creatinine 1.49 MG/DL Random Glucose 119 MG/DL Total Protein 5.3 GM/DL Albumin 2.4 GM/DL Calcium Level 7.4 MG/DL Alkaline Phosphatase 211 U/L Aspartate Amino Transf (AST/SGOT) 21 U/L Alanine Aminotransferase (ALT/SGPT) 29 U/L Total Bilirubin 0.7 MG/DL Sodium Level 141 MEQ/L Potassium Level 3.2 MEQ/L Chloride Level 105 MEQ/L Carbon Dioxide Level 28.7 MEQ/L Anion Gap 7 MEQ/L Estimat Glomerular Filtration Rate 47 ML/MIN Protein Corrected Calcium 8.4 MG/DL [facility] Medical Decision Making Medical Screen Exam Complete: Yes Emergency Medical Condition: Yes Differential Diagnosis Ascites, chronic GI bleeding, anemia, chronic leukemia, coagulopathy. Narrative Course Patient roomed in the emergency department, Dr. Tran is also formation discussed with Dr. Lilly to see in consultation. Patient does have a hemoglobin of 8 here. Coagulation studies are normal, platelet studies do show some mild thrombocytopenia. The patient is hemodynamically stable, 2 units of PRBCs have been ordered however the patient does have antibody positive and may take some time to crossmatch. He will be admitted to the hospital was discussed with [facility]. Dr. Tran will see in consultation if necessary. Diagnosis Primary Impression: Anemia Additional Impressions: GI bleed Ascites Admitting Information Admitting Physician Requests: Admit Condition: Stable Ricky Martinez MD Jul 31, 2017 15:19
[2017-07-31 15:36] LABS: AUTOMATED NEUTROPHIL # 2.9 TH/MM3 (1.8-7.7); BASOPHIL % 0.7 % (0.0-2.0); EOSINOPHIL # 0.1 TH/MM3 (0-0.4); EOSINOPHIL % 3.1 % (0.0-4.0); HEMATOCRIT 24.2 % (39.0-51.0); HEMO FLAGS DIFF FINAL; LYMPHOCYTE # 0.7 TH/MM3 (1.0-4.8); MEAN CELL VOLUME 92.8 FL (80.0-100.0); MEAN CORPUSCULAR HEMOGLOBIN 30.8 PG (27.0-34.0); MEAN CORPUSCULAR HGB CONC 33.1 % (32.0-36.0); MONO % 9.3 % (0.0-8.0); NEUT % 69.9 % (16.0-70.0); PLATELET COUNT 104 TH/MM3 (150-450); RED BLOOD COUNT 2.61 MIL/MM3 (4.50-5.90); RED CELL DISTRIBUTION WIDTH 18.3 % (11.6-17.2); WHITE BLOOD COUNT 4.2 TH/MM3 (4.0-11.0)
[2017-07-31 15:41] LABS: APTT (PATIENT) 30.1 SEC (24.3-30.1); INTERNATIONAL NORMALIZED RATIO 1.2 RATIO
[2017-07-31 16:06] LABS: BICARBONATE 28.7 MEQ/L (21.0-32.0); CALCIUM-PROTEIN CORRECTED 8.4 MG/DL (8.5-10.1); POTASSIUM 3.2 MEQ/L (3.5-5.1); TOTAL BILIRUBIN ADULT 0.7 MG/DL (0.2-1.0)
[2017-07-31] MEDS ORDERED: BISACODYL 10 MG SUPP RECTAL PRN (20:45)
[2017-07-31] MEDS ORDERED: NALOXONE HCL 0.4 MG/ML AMP IV PUSH PRN (20:45)
[2017-07-31] MEDS ORDERED: ALPRAZolam 0.5 MG TAB PO PRN (20:45)
[2017-07-31] MEDS ORDERED: SODIUM CHLORIDE 0.9% FLUSH 10 ML FLUSH IV FLUSH PRN (20:45)
[2017-07-31] MEDS ORDERED: ONDANSETRON HCL 4 MG/2 ML VIAL IVP PRN (20:45)
[2017-07-31] MEDS ORDERED: SENNOSIDES 8.6 MG TAB PO PRN (20:45)
[2017-07-31] MEDS ORDERED: MAGNESIUM HYDROXIDE SUSP 30 ML CUP PO PRN (20:45)
[2017-07-31] MEDS ORDERED: LACTULOSE SYRUP 20 GM/30 ML CUP PO PRN (20:45)
--- NOTE | 2017-07-31 20:53 | HHI.HP ---
HPI Service [facility] Hospitalists Primary Care Physician Danay Florian MD ([place]) Admission Diagnosis Anemia, Chronic GI bleeding, Ascites. Chief Complaint: sent by hematology severe anemia ascites Travel History International Travel<30 Days: No Contact w/Intl Traveler <30 Da: No Traveled to Known Affected Are: No History of Present Illness Patient is a 71-year-old male with a history of chronic leukemia chronic GI bleeding presents emergency department at the behest of his oncologist Dr. Tran for workup for GI problems. The patient after discussing with Dr. Tran apparently has needed transfusions fairly frequently over the past 2 years since she started bleeding. D-dimer review of the records from [place] shows that he's had 60 units of blood. He apparently came to the office today complaining of abdominal distention and increasing ascites, he was due to have another transfusion of 2 units of PRBCs. The patient has also been to multiple other providers to control his internal bleeding and has been unsuccessful to do so. He has even been to the [facility] and has had multiple colonoscopies and endoscopies all proving unfruitful. The patient complains of abdominal distention and fatigue at this time. Otherwise he states he feels at his baseline. No fevers no shortness of breath no presyncopal symptoms no abdominal pain. Symptoms are moderate, gradually worsening, context as above, location as above. As per hematology admit transfuse consult GI ,hematology already discussed with GI also interventional radiology for ascites. Review of Systems Constitutional: COMPLAINS OF: Fatigue Gastrointestinal: COMPLAINS OF: Abdominal pain Past Family Social History Past Medical History mild alzheimer's ,severe recurrent anemia,CML,Energy Feli Syndrome, afib with PPM [place] stent times 2 ascites from cirrhosis esopheageal varices thyroid disease Past Surgical History ballon for varices,gallbladder,cardiac stent times 2,rt chest infusaport, pacemaker,medronic,sinus surgery urethral strictures Reported Medications Vitamin C (Ascorbic Acid) 100 Mg Tablet 500 Mg PO DAILY Paxil (Paroxetine HCl) 30 Mg Tab 20 Mg PO HS Vitamin D-1000 (Cholecalciferol) 1,000 Unit Tab 1,000 Units PO DAILY Sotalol (AF) (Sotalol (Afib/Afl)) 80 Mg Tab 80 Mg PO BID Xanax (Alprazolam) 0.5 Mg Tab 0.5 Mg PO BID PRN Simvastatin 10 Mg Tab 10 Mg PO HS Restoril (Temazepam) 30 Mg Cap 30 Mg PO HS PRN Protonix (Pantoprazole Sodium) 40 Mg Tab 40 Mg PO BID Levothyroxine (Levothyroxine Sodium) 100 Mcg Tab 150 Mcg PO DAILY Lasix (Furosemide) 40 Mg Tab 40 Mg PO DAILY K-Tab (Potassium Chloride) 10 Meq Tab 10 Meq PO DAILY Gleevec (Imatinib Mesylate) 100 Mg Tab 400 Mg PO DAILY Amlodipine (Amlodipine Besylate) 5 Mg Tab 5 M Allergies: Coded Allergies: benazepril (Unverified Allergy, Severe, ANGIOEDEMA, 07/31/17) captopril (Unverified Allergy, Severe, ANGIOEDEMA, 07/31/17) enalaprilat (Unverified Allergy, Severe, ANGIOEDEMA, 07/31/17) fosinopril (Unverified Allergy, Severe, ANGIOEDEMA, 07/31/17) lisinopril (Unverified Allergy, Severe, ANGIOEDEMA, 07/31/17) meperidine (Unverified Allergy, Severe, 07/31/17) nausea headache quinapril (Unverified Allergy, Severe, ANGIOEDEMA, 07/31/17) amiodarone (Unverified Adverse Reaction, Intermediate, Swelling, 07/31/17) TONGUE AND MOUTH AND GENERALIZED EDEMA Uncoded Allergies: DASATINIB (Adverse Reaction, Unknown, Edema, 08/27/14) CAUSED PLEURAL EFFUSION-HAD THORACENTESIS Social History current NS,ND Physical Exam Vital Signs Vital Signs Date Time Temp Pulse Resp B/P (MAP) Pulse Ox O2 Delivery O2 Flow Rate FiO2 07/31/17 20:05 99.0 61 18 128/58 97 07/31/17 19:26 66 97 Room Air 07/31/17 19:26 66 18 118/66 (83) 97 Room Air 07/31/17 18:15 98.6 62 18 135/63 97 07/31/17 18:00 98.4 60 17 134/63 96 07/31/17 16:25 60 17 138/60 (86) 98 Room Air 07/31/17 14:20 97.9 63 18 123/58 (79) 100 Room Air Physical Exam GENERAL: This is a well-nourished, well-developed patient, in no apparent distress. SKIN: No rashes, ecchymoses or lesions. Cool and dry. HEAD: Atraumatic. Normocephalic. No temporal or scalp tenderness. EYES: Pupils equal round and reactive. Extraocular motions intact. No scleral icterus. No injection or drainage. ENT: Nose without bleeding, purulent drainage or septal hematoma. Throat without erythema, tonsillar hypertrophy or exudate. Uvula midline. Airway patent. NECK: Trachea midline. No JVD or lymphadenopathy. Supple, nontender, no meningeal signs. CARDIOVASCULAR: Regular rate and rhythm without murmurs, gallops, or rubs. RESPIRATORY: Clear to auscultation. Breath sounds equal bilaterally. No wheezes , rales, or rhonchi. GASTROINTESTINAL: Abdomen distended with ascites MUSCULOSKELETAL: Extremities without clubbing, cyanosis, or edema. No joint tenderness, effusion, or edema noted. No calf tenderness. Negative Homans sign bilaterally. NEUROLOGICAL: Awake and alert. Cranial nerves II through XII intact. Motor and sensory grossly within normal limits. Five out of 5 muscle strength in all muscle groups. Normal speech. Laboratory Laboratory Tests Test 07/31/17 15:15 White Blood Count 4.2 Red Blood Count 2.61 Hemoglobin 8.0 Hematocrit 24.2 Mean Corpuscular Volume 92.8 Mean Corpuscular Hemoglobin 30.8 Mean Corpuscular Hemoglobin Concent 33.1 Red Cell Distribution Width 18.3 Platelet Count 104 Mean Platelet Volume 8.6 Neutrophils (%) (Auto) 69.9 Lymphocytes (%) (Auto) 17.0 Monocytes (%) (Auto) 9.3 Eosinophils (%) (Auto) 3.1 Basophils (%) (Auto) 0.7 Neutrophils # (Auto) 2.9 Lymphocytes # (Auto) 0.7 Monocytes # (Auto) 0.4 Eosinophils # (Auto) 0.1 Basophils # (Auto) 0.0 CBC Comment DIFF FINAL Differential Comment Prothrombin Time 13.0 Prothromb Time International Ratio 1.2 Activated Partial Thromboplast Time 30.1 Blood Urea Nitrogen 12 Creatinine 1.49 Random Glucose 119 Total Protein 5.3 Albumin 2.4 Calcium Level 7.4 Alkaline Phosphatase 211 Aspartate Amino Transf (AST/SGOT) 21 Alanine Aminotransferase (ALT/SGPT) 29 Total Bilirubin 0.7 Sodium Level 141 Potassium Level 3.2 Chloride Level 105 Carbon Dioxide Level 28.7 Anion Gap 7 Estimat Glomerular Filtration Rate 47 Protein Corrected Calcium 8.4 Result Diagram: 07/31/17151407/31/17 151 Caprini VTE Risk Assessment Caprini VTE Risk Assessment: Mod/High Risk (score >= 2) Caprini Risk Assessment Model Point Value = 1 Point Value = 2 Point Value = 3 Point Value = 5 Age 41-60 Minor surgery BMI > 25 kg/m2 Swollen legs Varicose veins or History of unexplained or recurrent spontaneous Oral contraceptives or hormone replacement Sepsis (< 1 month) Serious lung disease, including pneumonia (< 1 month) Abnormal pulmonary function Acute myocardial infarction Congestive heart failure (< 1 month) History of inflammatory bowel disease Medical patient at bed rest Age 61-74 Arthroscopic surgery Major open surgery (> 45 min) Laparoscopic surgery (> 45 min) Malignancy Confined to bed (> 72 hours) Immobilizing plaster cast Central venous access Age >= 75 History of VTE Family history of VTE Factor V Leiden Prothrombin [id number] Lupus anticoagulant Anticardiolipin antibodies Elevated serum homocysteine Heparin-induced thrombocytopenia Other congenital or acquired thrombophilia Stroke (< 1 month) Elective arthroplasty Hip, pelvis, or leg fracture Acute spinal cord injury (< 1 month) Prophylaxis Regimen Total Risk Factor Score Risk Level Prophylaxis Regimen 0-1 Low Early ambulation 2 Moderate Order ONE of the following: *Sequential Compression Device (SCD) *Heparin 5000 units SQ BID 3-4 Higher Order ONE of the following medications: *Heparin 5000 units SQ TID *Enoxaparin/Lovenox 40 mg SQ daily (WT < 150 kg, CrCl > 30 mL/min) *Enoxaparin/Lovenox 30 mg SQ daily (WT < 150 kg, CrCl > 10-29 mL/min) *Enoxaparin/Lovenox 30 mg SQ BID (WT < 150 kg, CrCl > 30 mL/min) AND/OR *Sequential Compression Device (SCD) 5 or more Highest Order ONE of the following medications: *Heparin 5000 units SQ TID (Preferred with Epidurals) *Enoxaparin/Lovenox 40 mg SQ daily (WT < 150 kg, CrCl > 30 mL/min) *Enoxaparin/Lovenox 30 mg SQ daily (WT < 150 kg, CrCl > 10-29 mL/min) *Enoxaparin/Lovenox 30 mg SQ BID (WT < 150 kg, CrCl > 30 mL/min) AND *Sequential Compression Device (SCD) Assessment and Plan Problem List: (1) Anemia ICD Codes: D64.9 - Anemia, unspecified Status: Acute Plan: recurrent anemia will transfuse recheck labs consult hematology ,GI on protonix (2) GI bleed ICD Codes: K92.2 - Gastrointestinal hemorrhage, unspecified Status: Acute Plan: Hematology discussed with GI has hx esophageal varices follow labs (3) Ascites ICD Codes: R18.8 - Other ascites Status: Acute Plan: will ask interventional radiology to see (4) Leukemia ICD Codes: C95.90 - Leukemia, unspecified not having achieved remission Status: Chronic Plan: currently according to in remission consult hematology Assessment and Plan further plan as case develops Code Status full Discussed Condition With patient and Physician Certification 2 Midnight Certification Type: Admission for Inpatient Services Order for Inpatient Services The services are ordered in accordance with Medicare regulations or non- Medicare payer requirements, as applicable. In the case of services not specified as inpatient-only, they are appropriately provided as inpatient services in accordance with the 2-midnight benchmark. Estimated LOS (days): 3 3 days is the estimated time the patient will need to remain in the hospital, assuming treatment plan goals are met and no additional complications. Post-Hospital Plan: Not yet determined Newton Rendon MD Jul 31, 2017 20:53
[2017-07-31] MEDS: PANTOPRAZOLE SOD 40 MG DELAYED RELEASE TAB PO SCH (23:12)
[2017-07-31] MEDS: PRAVASTATIN SOD 20 MG TAB PO SCH (23:12)
[2017-07-31] MEDS: amLODIPine BESYLATE 5 MG TAB PO SCH (23:12)
[2017-07-31] MEDS: DOCUSATE SODIUM 50 MG/SENNA 8.6 MG TAB PO SCH (23:12)
[2017-07-31] MEDS: PARoxetine HCL 20 MG TAB PO SCH (23:12)
[2017-07-31] MEDS: TEMAZEPAM 15 MG CAP PO PRN (23:12)
[2017-07-31] MEDS: SOTALOL HCL 80 MG TAB PO SCH (23:12)
[2017-07-31] MEDS: SODIUM CHLORIDE 0.9% FLUSH 10 ML FLUSH IV FLUSH SCH (23:14)
[2017-08-01] VITALS (9 sets, daily range): BP systolic 116–145; BP diastolic 56–68; PULSE 60–76; RESP 18; TEMP 97.7–98.2; O2SAT 95–97
[2017-08-01] MEDS: LEVOTHYROXINE SODIUM 150 MCG TAB PO SCH (05:06)
[2017-08-01 05:54] LABS: AUTOMATED NEUTROPHIL # 2.5 TH/MM3 (1.8-7.7); BASOPHIL % 0.5 % (0.0-2.0); EOSINOPHIL # 0.1 TH/MM3 (0-0.4); EOSINOPHIL % 3.2 % (0.0-4.0); HEMATOCRIT 27.7 % (39.0-51.0); LYMPH % 16.4 % (9.0-44.0); LYMPHOCYTE # 0.6 TH/MM3 (1.0-4.8); MEAN CELL VOLUME 90.4 FL (80.0-100.0); MEAN CORPUSCULAR HEMOGLOBIN 31.2 PG (27.0-34.0); MEAN CORPUSCULAR HGB CONC 34.5 % (32.0-36.0); MONO % 9.3 % (0.0-8.0); NEUT % 70.6 % (16.0-70.0); PLATELET COUNT 95 TH/MM3 (150-450); RED BLOOD COUNT 3.06 MIL/MM3 (4.50-5.90); RED CELL DISTRIBUTION WIDTH 17.5 % (11.6-17.2); WHITE BLOOD COUNT 3.6 TH/MM3 (4.0-11.0)
[2017-08-01 06:18] LABS: ALT (GPT) 27 U/L (12-78); ANION GAP 6 MEQ/L (5-15); AST (GOT) 24 U/L (15-37); BICARBONATE 29.1 MEQ/L (21.0-32.0); BLOOD UREA NITROGEN 13 MG/DL (7-18); CHLORIDE 105 MEQ/L (98-107); GLOMERULAR FILTRATION RATE 51 ML/MIN (>89); POTASSIUM 3.4 MEQ/L (3.5-5.1); SODIUM (NA) 140 MEQ/L (136-145)
[2017-08-01 06:21] LABS: ALKALINE PHOSPHATASE 192 U/L (45-117); TOTAL BILIRUBIN ADULT 1.6 MG/DL (0.2-1.0)
[2017-08-01 06:25] LABS: HEMO FLAGS AUTO DIFF
[2017-08-01 08:04] LABS: PLATELET ESTIMATE SMEAR LOW (NORMAL); PLATELET MORPHOLOGY NORMAL (NORMAL); SCAN/DIFF AUTO DIFF CONFIRMED
[2017-08-01] MEDS: ASCORBIC ACID 500 MG TAB PO SCH (08:17)
[2017-08-01] MEDS: CHOLECALCIFEROL (VIT D3) 1000 UNIT TAB PO SCH (08:17)
[2017-08-01] MEDS: PANTOPRAZOLE SOD 40 MG DELAYED RELEASE TAB PO SCH ×2 (08:17→20:51)
[2017-08-01] MEDS: amLODIPine BESYLATE 5 MG TAB PO SCH ×2 (08:17→20:51)
[2017-08-01] MEDS: FUROSEMIDE 40 MG TAB PO SCH (08:17)
[2017-08-01] MEDS: SOTALOL HCL 80 MG TAB PO SCH ×2 (08:17→20:51)
[2017-08-01] MEDS: SODIUM CHLORIDE 0.9% FLUSH 10 ML FLUSH IV FLUSH SCH ×2 (08:18→20:53)
[2017-08-01] MEDS: DOCUSATE SODIUM 50 MG/SENNA 8.6 MG TAB PO SCH ×2 (08:18→20:51)
[2017-08-01] MEDS ORDERED: POTASSIUM CHLORIDE 10 MEQ CONTROLLED RELEASE TAB PO SCH (09:00)
[2017-08-01] MEDS ORDERED: IMATINIB MESYLATE 100 MG TAB PO SCH (09:00)
--- NOTE | 2017-08-01 09:15 | PD.CONS ---
HPI History of Present Illness This is a 71 year old with a history of liver cirrhosis, portal gastropathy, gastric and duodenal ulcers, and AVMs. He has had an ongoing issue with recurrent GI Bleeding and melanotic stools. He underwent Enteroscopy at [facility] (01/02/17)----> Small (<5 mm) and portal hypertensive gastropathy, no lesions amenable to endoscopic therapy, using gastric ulcers at sites of recent endoscopic cautery, using duodenal ulcers at sites of recent endoscopic cautery , erythema and proximal small intestine consistent with portal enteropathic; no discrete vascular ectasias or lesions amenable to endoscopic therapy, inflamed jejunal polyps, resected and retrieved, the examined portion of the ileum was normal. Jejunum polyploid granulation tissue with ectatic vessels and benign mucosa with thermal artifact and superficial ectatic vessels. No evidence of neoplasm. The exact tactic vessels are suggestive of portal hypertensive enteropathy/polyps. Antrum of the stomach with noninflammatory mucosa with edema and focal superficial ectatic vessels, suggestive of portal hypertensive gastropathy negative for H. pylori. Prior to this, he had a capsule endoscopy ( 10/01/16)---> edema, erythema, and polypoid mucosa in stomach. Patchy erythema and small intestines consistent with vascular ectasias versus portal hypertension, fresh blood in proximal to mid small intestine consistent with active bleeding, focal polypoid edema of small intestines, otherwise normal capsule endoscopy. His last colonoscopy (07/12/16)---> diverticulosis in the sigmoid, descending 4 polyps at hepatic flexure- diminutive, polyp sessile mid transverse7 mmhot snare polypectomy, 2 diminutive polyps in rectum, s/p cautery , retroflexed views revealed medium internal hemorrhoids, external hemorrhoids. He also has a history of chronic CML and takes Gleevec with Dr. Tran. He has required multiple transfusions and gets scheduled blood work to monitor his anemia. He was seen by Dr. Tran this past Saturday and was noted to have anemia and ascites and was referred to the emergency room for evaluation and treatment. He was noted to have an HH of 8.0/24.2. S/P 2 units of PRBC. Rpt. HH 9.6/27.7. He reports that he has had ongoing black tarry stools for many months. He denies any nausea, vomiting, or abdominal pain. He has had decreased appetite and has lost about 15 lbs a few months ago. He has also recently started getting ascites and required a paracentesis about 2 weeks ago and again earlier today. He was diagnosed with liver cirrhosis about 5 yeas ago and states this is from fatty liver disease. He denies the use of ETOH. (CarvalhoGwendolyn) PFSH Past Medical History Acute CHF Adenomatous polyp Iron deficiency Anxiety Ascites Atherosclerosis of aorta Atrial fibrillation AVM stomach CAD Dementia Depression Diverticulosis Esophageal varices Fatty liver Gastropathy Hx chronic myeloid leukemia HTN Hyperlipidemia Hypothyroidism Liver cirrhosis MEREDITH Steatohepatitis TIA Past Surgical History Liver biopsy Capsule endoscopy Cholecystectomy EGD/Colonoscopy PPM placement CAD stent placement Sinus surgery Paracentesis (Gwendolyn Carvalho) Coded Allergies: benazepril (Unverified Allergy, Severe, ANGIOEDEMA, 07/31/17) captopril (Unverified Allergy, Severe, ANGIOEDEMA, 07/31/17) enalaprilat (Unverified Allergy, Severe, ANGIOEDEMA, 07/31/17) fosinopril (Unverified Allergy, Severe, ANGIOEDEMA, 07/31/17) lisinopril (Unverified Allergy, Severe, ANGIOEDEMA, 07/31/17) meperidine (Unverified Allergy, Severe, 07/31/17) nausea headache quinapril (Unverified Allergy, Severe, ANGIOEDEMA, 07/31/17) amiodarone (Unverified Adverse Reaction, Intermediate, Swelling, 07/31/17) TONGUE AND MOUTH AND GENERALIZED EDEMA Uncoded Allergies: DASATINIB (Adverse Reaction, Unknown, Edema, 08/27/14) CAUSED PLEURAL EFFUSION-HAD THORACENTESIS Medications Allergies Coded Allergies Type Severity Reaction Last Updated Verified benazepril Allergy Severe ANGIOEDEMA 07/31/17 No captopril Allergy Severe ANGIOEDEMA 07/31/17 No enalaprilat Allergy Severe ANGIOEDEMA 07/31/17 No fosinopril Allergy Severe ANGIOEDEMA 07/31/17 No lisinopril Allergy Severe ANGIOEDEMA 07/31/17 No meperidine Allergy Severe 07/31/17 No quinapril Allergy Severe ANGIOEDEMA 07/31/17 No amiodarone Adverse Reaction Intermediate Swelling 07/31/17 No Uncoded Allergies Type Severity Reaction Last Updated Verified DASATINIB Adverse Reaction Unknown Edema 08/27/14 Active Scripts Medications Dose Route/Sig Max Daily Dose Days Date Category Vitamin C (Ascorbic Acid) 100 Mg Tablet 500 Mg PO DAILY 03/06/17 Reported Paxil (Paroxetine HCl) 30 Mg Tab 20 Mg PO HS 03/06/17 Reported Vitamin D-1000 (Cholecalciferol) 1,000 Unit Tab 1,000 Units PO DAILY 12/21/16 Reported Sotalol (AF) (Sotalol (Afib/Afl)) 80 Mg Tab 80 Mg PO BID 11/15/16 Reported Xanax (Alprazolam) 0.5 Mg Tab 0.5 Mg PO BID PRN 07/18/16 Reported Simvastatin 10 Mg Tab 10 Mg PO HS 07/18/16 Reported Restoril (Temazepam) 30 Mg Cap 30 Mg PO HS PRN 07/18/16 Reported Protonix (Pantoprazole Sodium) 40 Mg Tab 40 Mg PO BID 07/18/16 Reported Levothyroxine (Levothyroxine Sodium) 100 Mcg Tab 150 Mcg PO DAILY 07/18/16 Reported Lasix (Furosemide) 40 Mg Tab 40 Mg PO DAILY 07/18/16 Reported K-Tab (Potassium Chloride) 10 Meq Tab 10 Meq PO DAILY 07/18/16 Reported Gleevec (Imatinib Mesylate) 100 Mg Tab 400 Mg PO DAILY 07/18/16 Reported Amlodipine (Amlodipine Besylate) 5 Mg Tab 5 Mg PO BID 07/18/16 Reported Family History Father had prostate cancer Brother with prostate cancer and head and neck cancer Social History No tobacco, etoh, illicit drug use. (Gwendolyn Carvalho) Review of Systems Constitutional: COMPLAINS OF: Fatigue, Weight loss, Change in appetite Respiratory: DENIES: Cough Cardiovascular: COMPLAINS OF: Lower Extremity Edema, DENIES: Chest pain Gastrointestinal: COMPLAINS OF: Black stools, Diarrhea, Swelling of Abdomen, DENIES: Abdominal pain, Nausea, Vomiting, Heartburn, Hematemesis Psychiatric: DENIES: Confusion (Gwendolyn Carvalho) GI Exam Vitals I&O Vital Signs Date Time Temp Pulse Resp B/P (MAP) Pulse Ox O2 Delivery O2 Flow Rate FiO2 08/01/17 08:29 98.1 76 18 145/67 (93) 96 08/01/17 06:22 98.0 70 18 116/58 (77) 95 08/01/17 01:12 97.7 65 18 142/62 (88) 95 08/01/17 00:50 70 07/31/17 22:00 98.1 68 18 136/64 (88) 98 07/31/17 21:10 98.0 72 18 152/56 95 07/31/17 20:50 07/31/17 20:45 98.6 65 20 142/67 97 07/31/17 20:05 99.0 61 18 128/58 97 07/31/17 19:26 66 97 Room Air 07/31/17 19:26 66 18 118/66 (83) 97 Room Air 07/31/17 18:15 98.6 62 18 135/63 97 07/31/17 18:00 98.4 60 17 134/63 96 07/31/17 16:25 60 17 138/60 (86) 98 Room Air 07/31/17 14:20 97.9 63 18 123/58 (79) 100 Room Air I/O 07/31/17 07/31/17 07/31/17 08/01/17 08/01/17 08/01/17 07:00 15:00 23:00 07:00 15:00 23:00 Intake Total 394 ml 450 ml Output Total 125 ml Balance 394 ml 325 ml Packed Cells 350 ml 400 ml Blood Product IV Normal Saline Flush 44 ml 50 ml Output Urine Total 125 ml Imaging Last Impressions Cyst Biopsy Asp-Paracentesis US 08/01/17 0000 Signed Impressions: Service Date/Time: July 10:56 - CONCLUSION: Uncomplicated ultrasound guided paracentesis. Andrei Hi Jr., MD Laboratory Test 07/31/17 15:15 08/01/17 05:10 White Blood Count 4.2 TH/MM3 3.6 TH/MM3 Red Blood Count 2.61 MIL/MM3 3.06 MIL/MM3 Hemoglobin 8.0 GM/DL 9.6 GM/DL Hematocrit 24.2 % 27.7 % Mean Corpuscular Volume 92.8 FL 90.4 FL Mean Corpuscular Hemoglobin 30.8 PG 31.2 PG Mean Corpuscular Hemoglobin Concent 33.1 % 34.5 % Red Cell Distribution Width 18.3 % 17.5 % Platelet Count 104 TH/MM3 95 TH/MM3 Mean Platelet Volume 8.6 FL 8.7 FL Neutrophils (%) (Auto) 69.9 % 70.6 % Lymphocytes (%) (Auto) 17.0 % 16.4 % Monocytes (%) (Auto) 9.3 % 9.3 % Eosinophils (%) (Auto) 3.1 % 3.2 % Basophils (%) (Auto) 0.7 % 0.5 % Neutrophils # (Auto) 2.9 TH/MM3 2.5 TH/MM3 Lymphocytes # (Auto) 0.7 TH/MM3 0.6 TH/MM3 Monocytes # (Auto) 0.4 TH/MM3 0.3 TH/MM3 Eosinophils # (Auto) 0.1 TH/MM3 0.1 TH/MM3 Basophils # (Auto) 0.0 TH/MM3 0.0 TH/MM3 CBC Comment DIFF FINAL AUTO DIFF Differential Comment AUTO DIFF CONFIRMED Prothrombin Time 13.0 SEC Prothromb Time International Ratio 1.2 RATIO Activated Partial Thromboplast Time 30.1 SEC Blood Urea Nitrogen 12 MG/DL 13 MG/DL Creatinine 1.49 MG/DL 1.39 MG/DL Random Glucose 119 MG/DL 87 MG/DL Total Protein 5.3 GM/DL 5.3 GM/DL Albumin 2.4 GM/DL 2.3 GM/DL Calcium Level 7.4 MG/DL 7.5 MG/DL Alkaline Phosphatase 211 U/L 192 U/L Aspartate Amino Transf (AST/SGOT) 21 U/L 24 U/L Alanine Aminotransferase (ALT/SGPT) 29 U/L 27 U/L Total Bilirubin 0.7 MG/DL 1.6 MG/DL Sodium Level 141 MEQ/L 140 MEQ/L Potassium Level 3.2 MEQ/L 3.4 MEQ/L Chloride Level 105 MEQ/L 105 MEQ/L Carbon Dioxide Level 28.7 MEQ/L 29.1 MEQ/L Anion Gap 7 MEQ/L 6 MEQ/L Estimat Glomerular Filtration Rate 47 ML/MIN 51 ML/MIN Protein Corrected Calcium 8.4 MG/DL Platelet Estimate LOW Platelet Morphology Comment NORMAL Physical Examination HEENT: Normocephalic; atraumatic; no jaundice. CHEST: Resp even/unlabored, diminished. CARDIAC: RRR. ABDOMEN: Soft, nondistended, nontender; hepatosplenomegaly; bowel sounds are present in all four quadrants. EXTREMITIES: BLE edema. SKIN: Generalized pallor RE[employer] L[employer]IVER: No focal deficits; alert and oriented times three. (Gwendolyn Carvalho) Assessment and Plan Plan ASSESSMENT: - GIB, Melena. Pt with hx of portal gastropathy, gastric/duodenal ulcers, and AVMs and recurrent GI bleeding. Enteroscopy at [facility] (01/02/17)----> Small (<5 mm) and portal hypertensive gastropathy, no lesions amenable to endoscopic therapy, using gastric ulcers at sites of recent endoscopic cautery, using duodenal ulcers at sites of recent endoscopic cautery, erythema and proximal small intestine consistent with portal enteropathic; no discrete vascular ectasias or lesions amenable to endoscopic therapy, inflamed jejunal polyps, resected and retrieved, the examined portion of the ileum was normal. Jejunum polyploid granulation tissue with ectatic vessels and benign mucosa with thermal artifact and superficial ectatic vessels. No evidence of neoplasm. The exact tactic vessels are suggestive of portal hypertensive enteropathy/ polyps. Antrum of the stomach with noninflammatory mucosa with edema and focal superficial ectatic vessels, suggestive of portal hypertensive gastropathy negative for H. pylori. Capsule endoscopy (10/01/16)---> edema, erythema, and polypoid mucosa in stomach. Patchy erythema and small intestines consistent with vascular ectasias versus portal hypertension, fresh blood in proximal to mid small intestine consistent with active bleeding, focal polypoid edema of small intestines, otherwise normal capsule endoscopy. Colonoscopy (07/12/16)---> diverticulosis in the sigmoid, descending 4 polyps at hepatic flexure- diminutive, polyp sessile mid transverse7 mm hot snare polypectomy, 2 diminutive polyps in rectum, s/p cautery, retroflexed views revealed medium internal hemorrhoids, external hemorrhoids. Ongoing melena, requiring periodic transfusions. HH 8.0/24.2 on admission. PPI. Plan for enteroscopy with APC in am. - Anemia, blood loss. S/P 2 units of PRBC. 9.6/.7. - Ascites. S/P therapeutic/diagnostic paracentesis (08/01/17)---> 4,700cc removed. Peritoneal WBC 277, RBC 642. Cytology, Cx pending. Lasix. - Liver cirrhosis. Pt reports diagnosed 5 years ago and that his liver disease is r/t fatty liver disease. - Thrombocytopenia. 95,000. - Afib, JUAN. Per attending. - CML. Followed by Dr. Tran. On Gleevec. PLAN: - Plan for enteroscopy with apc - Obtain consents - NPO after MN - PPI - Monitor HH - Transfuse as necessary - Supportive care - Further recommendations to follow based on results of above - Pt seen and examined by Dr. Mejia and myself and this note is written on his behalf (Gwendolyn Carvalho) Physician Comments Patient seen and examined Agree with above Continue with current supportive care Monitor labs Plan for an enteroscopy with APC tomorrow (Nico Mejia MD) Gwendolyn Carvalho Aug 01, 2017 09:15 Nico Mejia MD Aug 01, 2017 23:31
--- NOTE | 2017-08-01 11:01 | HHI.PR ---
Subjective Remarks has had melena/hematochezia. swelling in legs worsening ascites. had paracentesis last month. Objective Vitals nad oriented heart reg lung cta abd ascites/no rebound. bs ext 2 plus pitting edema. Vital Signs Date Time Temp Pulse Resp B/P (MAP) Pulse Ox O2 Delivery O2 Flow Rate FiO2 08/01/17 08:29 98.1 76 18 145/67 (93) 96 08/01/17 06:22 98.0 70 18 116/58 (77) 95 08/01/17 01:12 97.7 65 18 142/62 (88) 95 08/01/17 00:50 70 07/31/17 22:00 98.1 68 18 136/64 (88) 98 07/31/17 21:10 98.0 72 18 152/56 95 07/31/17 20:50 07/31/17 20:45 98.6 65 20 142/67 97 07/31/17 20:05 99.0 61 18 128/58 97 07/31/17 19:26 66 97 Room Air 07/31/17 19:26 66 18 118/66 (83) 97 Room Air 07/31/17 18:15 98.6 62 18 135/63 97 07/31/17 18:00 98.4 60 17 134/63 96 07/31/17 16:25 60 17 138/60 (86) 98 Room Air 07/31/17 14:20 97.9 63 18 123/58 (79) 100 Room Air Result Diagram: 08/01/17 0510 08/01/17 0510 A/P Problem List: (1) Cirrhosis ICD Codes: K74.60 - Unspecified cirrhosis of liver Status: Acute Plan: 1. CML on gleevac 2. Liver cirrhosis/steatohepatitis in past bx 3. recurrent ascites and peripheral edema..probably related to cirrhosis. r/o malignant ascites. r/o chf. paracentesis 07/11...4.6L yellow fluid. no analysis performed. 4. chronic GIB's with blood loss anemia.s/p extensive gi w/up here and at [place] has been transfusion dependent. 2 units 07/31 5. ckd 3 6. hx afib and pm 7. hypoalbumemia plan. US guided paracentesis today. analysis ordered will consider iv albumen and lasix to help with peripheral edema after the paracentesis. might need to add aldactone. will look in records to see if he had a recent echo. GI consulted for persistent chronic gib and ascites. Hem/onc consulted. ADDENDUM: 2d echo: 04/01....mild LVH. EF 60-65% mild AVS/mild mvr. mod pulmonary htn PAP 55. small pericardial effusion. (2) Anemia ICD Codes: D64.9 - Anemia, unspecified Status: Acute Plan: recurrent anemia will transfuse recheck labs consult hematology ,GI on protonix (3) GI bleed ICD Codes: K92.2 - Gastrointestinal hemorrhage, unspecified Status: Acute Plan: Hematology discussed with GI has hx esophageal varices follow labs (4) Ascites ICD Codes: R18.8 - Other ascites Status: Acute Plan: will ask interventional radiology to see (5) CML (chronic myelocytic leukemia) ICD Codes: C92.10 - Chronic myeloid leukemia, BCR/ABL-positive, not having achieved remission Status: Chronic (6) Afib ICD Codes: I48.91 - Unspecified atrial fibrillation Status: Chronic Dallas Garcia MD Aug 01, 2017 11:01
[2017-08-01 13:06] LABS: PERITONEAL HISTIOCYTES 23 %; PERITONEAL LYMPHS 55 %; PERITONEAL MESOTHELIAL 6 %; PERITONEAL POLYS(SEGS) 16 %; PERITONEAL WBC 277 /MM3 (0-10)
[2017-08-01] MEDS: IMATINIB MESYLATE 100 MG TAB PO SCH (13:28)
--- NOTE | 2017-08-01 13:49 | RADRPT ---
EXAM DATE/TIME: 08/01/2017 10:56 [facility] COMPARISON: EXTERNAL COMPARISON: US GUIDED ABD PARACENTESIS, July 11, 2017, 8:55. [facility], CT ABDOMEN & PELVIS W CONTR AST, Nov 03 2012. INDICATIONS : Ascites. MEDICAL HISTORY : Diverticulosis. Congestive heart failure. Leukemia. HTN. Afib. Coronary artery disease. Cerebral infa rct. Cirrhosis. Diabetes. Renal disease. Esophageal varices. Hiatal hernia. Hypothyroidism. Myocardia l infarction. TIA. SURGICAL HISTORY : Cholecystectomy Pacemaker. Coronary artery stent. Cardiac cath. Paracentesis. Esophageal banding. Col onoscopy. Sinus surgery. ENCOUNTER: Subsequent ACUITY: 3 weeks PAIN SCORE: 3/10 LOCATION: Left lower quadrant FLUID: Total volume of 4700 cc of clear, yellow fluid was removed. Fluid was sent to lab for ordered studies. Post procedure scanning reveals no hematoma or other complication. TECHNIQUE: 1. Ultrasound guidance for abdominal paracentesis. 2. Paracentesis. The risks, benefits, and alternatives to ultrasound guided paracentesis were explained to the patient in detail including the risk of bleeding and infection. Written and verbal informed consent was obt ained. With the patient on the ultrasound table, ultrasound imaging was used to select the most appropriate approach for paracentesis. Overlying skin was prepped and draped in the usual sterile fashion and wi th a local anesthetic, a dermatotomy was made with an 11 blade scalpel. A 6 [place] [id number] ca theter was introduced into the peritoneal cavity and fluid was collected. The patient tolerated the procedure well and left the ultrasound suite in stable condition. CONCLUSION: Uncomplicated ultrasound guided paracentesis. Andrei Hi Jr., MD on August 01, 2017 at 13:46 Board Certified Radiologist. This report was verified electronically.
[2017-08-01] MEDS: oxyCODONE/ACETAMINOPHEN 5 MG/325 MG TAB PO PRN (17:29)
[2017-08-01] MEDS: PARoxetine HCL 20 MG TAB PO SCH (20:51)
[2017-08-01] MEDS: TEMAZEPAM 15 MG CAP PO PRN (20:51)
[2017-08-01] MEDS: PRAVASTATIN SOD 20 MG TAB PO SCH (20:51)
[2017-08-02] VITALS (8 sets, daily range): BP systolic 111–139; BP diastolic 55–62; PULSE 60–89; RESP 18; TEMP 98–98.5; O2SAT 95–98
[2017-08-02] MEDS: LEVOTHYROXINE SODIUM 150 MCG TAB PO SCH (05:46)
[2017-08-02 06:36] LABS: BICARBONATE 29.6 MEQ/L (21.0-32.0); MAGNESIUM 1.7 MG/DL (1.5-2.5); POTASSIUM 3.3 MEQ/L (3.5-5.1)
[2017-08-02] MEDS: DOCUSATE SODIUM 50 MG/SENNA 8.6 MG TAB PO SCH ×2 (08:57→20:45)
[2017-08-02] MEDS: SPIRONOLACTONE 25 MG TAB PO SCH (08:57)
[2017-08-02] MEDS: ASCORBIC ACID 500 MG TAB PO SCH (08:57)
[2017-08-02] MEDS: SOTALOL HCL 80 MG TAB PO SCH ×2 (08:57→20:40)
[2017-08-02] MEDS: amLODIPine BESYLATE 5 MG TAB PO SCH ×2 (08:57→20:41)
[2017-08-02] MEDS: FUROSEMIDE 40 MG TAB PO SCH (08:57)
[2017-08-02] MEDS: CHOLECALCIFEROL (VIT D3) 1000 UNIT TAB PO SCH (08:58)
[2017-08-02] MEDS: SODIUM CHLORIDE 0.9% FLUSH 10 ML FLUSH IV FLUSH SCH ×2 (08:58→21:00)
[2017-08-02] MEDS: PANTOPRAZOLE SOD 40 MG DELAYED RELEASE TAB PO SCH ×2 (08:58→20:41)
[2017-08-02] MEDS ORDERED: POTASSIUM CHLORIDE 20 MEQ CONTROLLED RELEASE TAB PO ONE (09:00)
--- NOTE | 2017-08-02 09:25 | HHI.PR ---
Subjective Remarks doing better. stool black. eager for d/c after enteroscopy. Objective Vitals heart reg lung cta abd s/nt ext 1 plus edema Vital Signs Date Time Temp Pulse Resp B/P (MAP) Pulse Ox O2 Delivery O2 Flow Rate FiO2 08/02/17 06:06 98.0 60 18 118/56 (76) 97 08/02/17 01:25 98.1 65 18 111/59 (76) 95 08/01/17 23:00 60 08/01/17 21:23 98.2 65 18 123/56 (78) 95 08/01/17 16:00 98.0 60 18 119/59 (79) 96 08/01/17 12:00 98.0 65 18 133/67 (89) 97 08/01/17 11:43 98.0 67 18 125/68 (87) 97 Result Diagram: 08/01/17 0510 08/02/17 0550 A/P Problem List: (1) Cirrhosis ICD Codes: K74.60 - Unspecified cirrhosis of liver Status: Acute Plan: 1. CML on gleevac 2. Liver cirrhosis/steatohepatitis in past bx 3. recurrent ascites and peripheral edema..probably related to cirrhosis. paracentesis 07/11...4.6L yellow fluid. no analysis performed. doesn't appear to be malignant. His echo from March not suggestive of chf 2d echo: 04/01....mild LVH. EF 60-65% mild AVS/mild mvr. mod pulmonary htn PAP 55. small pericardial effusion. -s/p paracentesis 4.7 L, yellow. 08/01 . appears to be consistent with portal htn 4. chronic GIB's with blood loss anemia.s/p extensive gi w/up here and at [place] has been transfusion dependent. 2 units 07/31 5. ckd 3 6. hx afib and pm 7. hypoalbumemia plan. enteroscopy today discussed with Dr Tran. we will cont lasix and add aldactone. he will f/u bmp next week and thereafter to assure toleration of diuretics. He will adjust them up or down as indicated to control the ascites. f/u pending ascitic fluid testing. I gave him small dose aldactone this AM but will dc him on 50mg bid. (2) Anemia ICD Codes: D64.9 - Anemia, unspecified Status: Acute Plan: recurrent anemia will transfuse recheck labs consult hematology ,GI on protonix (3) GI bleed ICD Codes: K92.2 - Gastrointestinal hemorrhage, unspecified Status: Acute Plan: Hematology discussed with GI has hx esophageal varices follow labs (4) Ascites ICD Codes: R18.8 - Other ascites Status: Acute Plan: will ask interventional radiology to see (5) CML (chronic myelocytic leukemia) ICD Codes: C92.10 - Chronic myeloid leukemia, BCR/ABL-positive, not having achieved remission Status: Chronic (6) Afib ICD Codes: I48.91 - Unspecified atrial fibrillation Status: Chronic Dallas Garcia MD Aug 02, 2017 09:25
[2017-08-02] MEDS: IMATINIB MESYLATE 100 MG TAB PO SCH (10:59)
--- NOTE | 2017-08-02 12:31 | MB ---
cc: IVAN CLARKE DATE OF CONSULTATION: 08/02/2017 REASON FOR CONSULTATION: 1. Gastrointestinal bleeding. 2. Chronic myelogenous leukemia. 3. Ascites. 4: portal hypertension from steatohepatitis PATIENT PROFILE The patient is a 71-year white male. He is . He had two sons, one is . He lives with his . He does not smoke and does not drink. 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 HISTORY OF PRESENT ILLNESS Pa Quintero is a 71-year male. He is well-known to me as I have provided medical care to him for I believe in excess of 30 years. 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 He subsequently developed chronic myelogenous leukemia. He takes Gleevec 400 mg a day and has done enormously well. Over the past year he has had GI bleeding. He has melanotic stools almost every day and the source of bleeding is unclear. He has had multiple upper and lower endoscopies. He was referred to the [facility]. This point it is unclear where the source of bleeding arises. He did in the recent past have upper enterostomy and had cauterization vessels. Several days ago he came to the office and was again having his usual melanotic stools. He had massive ascites. His hemoglobin had dropped into the low 8s. I felt that he needed to be hospitalized to arrange for blood transfusions, reevaluation to determine the site of bleeding and at minimum a paracentesis. He has already received packed cells today. CBC and platelet count 08/01 hemoglobin 9.6, white count 3,600, platelet are 95,000. Lytes, BUN and creatinine are notable for a BUN of six, creatinine is 1.33. He has had a mild degree of chronic renal failure. He underwent a paracentesis on 08/01 removing 4,700 cc of fluid which has been sent for testing. He is felt to have portal hypertension from steatohepatitis. He is feeling better. He is less short of breath. His existence has been miserable in that he comes the office every single week for transfusions and he now requires paracenteses with increasing frequency. PAST SURGICAL HISTORY 1. Cholecystectomy 2. Pacemaker placement 3. Coronary stents. PAST MEDICAL HISTORY 1. Atrial fibrillation 2. Coronary artery disease. 3. 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 5. Steatohepatitis, portal hypertension. 6. Depression. 7. Mild renal failure 8. Atrial fibrillation with pacemaker placement. The patient not able to take anticoagulation because of bleeding. ALLERGIES AMIODARONE POSSIBLE ASHISH INHIBITORS UNTOWARD REACTION TO MEPERIDINE MEDICATIONS PRIOR TO ADMISSION 1. Xanax 0.5 mg p.o. b.i.d. 2. Amlodipine 5 mg p.o. b.i.d. 3. Vitamin D . 4. Lasix 40 day 5. Gleevec 400 mg a day. 6. Levothyroxine 150 mcg day 7. Protonix 8. Paxil. 9. Potassium 10 mg a day tense. 4. Avastin 5. Sotalol 6. Temazepam PHYSICAL EXAMINATION IN GENERAL: Pa looks well. He is comfortable. His belly is no longer distended. VITAL SIGNS: Blood pressure is 118/60, respiratory rate 18, pulse 70 afebrile. O2 sat 97%. HEAD, EYES, EARS, NOSE, AND THROAT: Head is normocephalic. Conjunctivae are normal. Oropharynx is unremarkable. LYMPHATICS: There is no cervical, supraclavicular, axillary or inguinal adenopathy. HEART: Regular rhythm. Pacemaker left upper chest. LUNGS: lungs are clear. ABDOMEN: Mildly distended minimal for any ascites. Liver 2 cm below right costal margin. EXTREMITIES: Trace edema. MUSCULOSKELETAL: No bone pain. NEUROLOGIC: No weakness. PSYCHIATRIC: Cognition, affect normal. SKIN: Unremarkable except for pacemaker upper chest. ASSESSMENT/PLAN 1. CML continue Gleevec, he is doing well. 2. Chronic GI bleeding he has received an adequate number of packed cells. He is willing to stay today for the repeat upper endoscopy and I believe this should be done. 3. Portal hypertension from what appears to be steatohepatitis. Analysis of ascites is pending. 4. I have spoken with Dr. Garcia and Aldactone will be added to his Lasix. I will follow him as an outpatient. 5. He appears to be in sinus rhythm now. but has a pacemaker 6. Depression which is situational and is not going to change unless he has gets better. 7. He can probably leave the hospital once he has recovered from the upper enterostomy. I will follow him as an outpatient. He is to have a weekly CBC and platelet and electrolytes can be added to this. MD Jimenez Jarvis /9:18 AM /11:26 AM [email or web address]
[2017-08-02] MEDS ORDERED: *ONDANSETRON 4 MG VIAL PERIprocedural Use ONLY ONE (16:06)
[2017-08-02] MEDS ORDERED: *PROMETHAZINE 25 MG/ML VIAL PERIprocedural use ONLY ONE (16:06)
--- NOTE | 2017-08-02 16:14 | PD.PROCEDR ---
GI Procedure REFERRING PHYSICIAN Dr. Garcia PROCEDURE PERFORMED Enteroscopy with APC INDICATION FOR PROCEDURE Anemia, melena, known GAVE and AVMs PROCEDURE: The procedure, risks and benefits were discussed with Mr. Quintero and informed consent was obtained. Anesthesia sedated him with Diprivan. He was placed in the left lateral decubitus position. Enteroscopy: The Pentax videoscope was introduced through the oropharynx and advanced to the mid jejunum. Retroflexion was performed in the stomach. 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
[2017-08-02] MEDS ORDERED: DO NOT ADM ANY ANTICOAGULANT DRUGS PRN (16:30)
[2017-08-02] MEDS ORDERED: SPIRONOLACTONE 50 MG TAB PO SCH (18:00)
--- NOTE | 2017-08-02 18:08 | EKG ---
Date Performed: 08/02/2017 Time Performed: 03:37:52 PTAGE: 71 years EKG: Prolonged QT interval Atrial paced rhythm Nonspecific T wave change Compared to previous tr acing, QT interval somewhat more prolonged. ST-T changes somewhat improved. Abnormal ECG PREVIOUS TRACING : 07/11/2016 14.57 DOCTOR: Dallas Herrera Interpretating Date/Time 08/02/2017 18:07:17
[2017-08-02] MEDS: oxyCODONE/ACETAMINOPHEN 5 MG/325 MG TAB PO PRN (18:58)
[2017-08-02] MEDS: PRAVASTATIN SOD 20 MG TAB PO SCH (20:40)
[2017-08-02] MEDS: PARoxetine HCL 20 MG TAB PO SCH (20:41)
[2017-08-02] MEDS: TEMAZEPAM 15 MG CAP PO PRN (21:03)
[2017-08-03 00:31] VITALS: BP 121/58; PULSE 66; RESP 18; TEMP 98.5; O2SAT 95
[2017-08-03 05:47] VITALS: BP 124/59; PULSE 68; RESP 18; TEMP 97.8; O2SAT 95
[2017-08-03] MEDS: LEVOTHYROXINE SODIUM 150 MCG TAB PO SCH (05:54)
[2017-08-03 06:13] LABS: HEMATOCRIT 27.4 % (39.0-51.0); MEAN CELL VOLUME 91.2 FL (80.0-100.0); MEAN CORPUSCULAR HEMOGLOBIN 31.1 PG (27.0-34.0); MEAN CORPUSCULAR HGB CONC 34.1 % (32.0-36.0); PLATELET COUNT 94 TH/MM3 (150-450); RED CELL DISTRIBUTION WIDTH 17.1 % (11.6-17.2); WHITE BLOOD COUNT 4.9 TH/MM3 (4.0-11.0)
[2017-08-03 06:17] LABS: REVIEW FLAG FINAL
[2017-08-03 06:40] LABS: BICARBONATE 29.4 MEQ/L (21.0-32.0); POTASSIUM 3.5 MEQ/L (3.5-5.1)
[2017-08-03 08:38] VITALS: BP 120/58; PULSE 62; RESP 20; TEMP 98; O2SAT 96
[2017-08-03] MEDS: DOCUSATE SODIUM 50 MG/SENNA 8.6 MG TAB PO SCH (09:00)
[2017-08-03] MEDS: PANTOPRAZOLE SOD 40 MG DELAYED RELEASE TAB PO SCH (09:11)
[2017-08-03] MEDS: CHOLECALCIFEROL (VIT D3) 1000 UNIT TAB PO SCH (09:11)
[2017-08-03] MEDS: ASCORBIC ACID 500 MG TAB PO SCH (09:11)
[2017-08-03] MEDS: SODIUM CHLORIDE 0.9% FLUSH 10 ML FLUSH IV FLUSH SCH (09:11)
[2017-08-03] MEDS: SOTALOL HCL 80 MG TAB PO SCH (09:11)
[2017-08-03] MEDS: SPIRONOLACTONE 25 MG TAB PO SCH (09:11)
[2017-08-03] MEDS: amLODIPine BESYLATE 5 MG TAB PO SCH (09:11)
[2017-08-03 09:36] VITALS: PULSE 59
[2017-08-03] MEDS ORDERED: POTASSIUM CHLORIDE 20 MEQ CONTROLLED RELEASE TAB PO ONE (10:30)
[2017-08-03] MEDS: IMATINIB MESYLATE 100 MG TAB PO SCH (11:21)
[2017-08-03] MEDS ORDERED: SPIR25 PO (11:50)
--- NOTE | 2017-08-03 11:51 | HHI.DCPOC ---
Discharge Care Plan Diagnosis: (1) AVM (arteriovenous malformation) (2) GI bleed (3) Anemia (4) Cirrhosis (5) Ascites (6) CML (chronic myelocytic leukemia) (7) Afib Goals to Promote Your Health * To prevent worsening of your condition and complications * To maintain your health at the optimal level Directions to Meet Your Goals Take your medications as prescribed Follow your dietary instruction Follow activity as directed Keep your appointments as scheduled Take your immunizations and boosters as scheduled If your symptoms worsen call your PCP, if no PCP go to Urgent Care Center or Emergency Room Smoking is Dangerous to Your Health. Avoid second hand smoke Call the 24-hour hour crisis hotline for domestic abuse at Dallas Garcia MD Aug 03, 2017 11:51
--- NOTE | 2017-08-03 12:00 | HHI.DS ---
Discharge Summary Admission Date Jul 31, 2017 at 17:38 Discharge Date: Aug 03, 2017 Admitting Diagnosis Anemia, Chronic GI bleeding, Ascites. (1) Cirrhosis ICD Codes: K74.60 - Unspecified cirrhosis of liver Status: Acute (2) Anemia ICD Codes: D64.9 - Anemia, unspecified Status: Acute (3) GI bleed Diagnosis: Principal ICD Codes: K92.2 - Gastrointestinal hemorrhage, unspecified Status: Acute (4) Ascites Diagnosis: Principal ICD Codes: R18.8 - Other ascites Status: Acute (5) CML (chronic myelocytic leukemia) Diagnosis: Secondary ICD Codes: C92.10 - Chronic myeloid leukemia, BCR/ABL-positive, not having achieved remission Status: Chronic (6) Afib Diagnosis: Secondary ICD Codes: I48.91 - Unspecified atrial fibrillation Status: Chronic Brief History Patient is a 71-year-old male with a history of chronic leukemia chronic GI bleeding presents emergency department at the behest of his oncologist Dr. Coker for workup for GI problems. The patient after discussing with Dr. Coker apparently has needed transfusions fairly frequently over the past 2 years since she started bleeding. D-dimer review of the records from [facility] shows that he's had 60 units of blood. He apparently came to the office today complaining of abdominal distention and increasing ascites, he was due to have another transfusion of 2 units of PRBCs. The patient has also been to multiple other providers to control his internal bleeding and has been unsuccessful to do so. He has even been to the [facility] and has had multiple colonoscopies and endoscopies all proving unfruitful. The patient complains of abdominal distention and fatigue at this time. Otherwise he states he feels at his baseline. No fevers no shortness of breath no presyncopal symptoms no abdominal pain. Symptoms are moderate, gradually worsening, context as above, location as above. As per hematology admit transfuse consult GI ,hematology already discussed with GI also interventional radiology for ascites. CBC/BMP: 08/03/17 0550 08/03/17 0550 Significant Findings Laboratory Tests Test 07/31/17 15:15 08/01/17 05:10 08/01/17 12:00 08/02/17 05:50 Red Blood Count 2.61 MIL/MM3 (4.50-5.90) 3.06 MIL/MM3 (4.50-5.90) Hemoglobin 8.0 GM/DL (13.0-17.0) 9.6 GM/DL (13.0-17.0) Hematocrit 24.2 % (39.0-51.0) 27.7 % (39.0-51.0) Red Cell Distribution Width 18.3 % (11.6-17.2) 17.5 % (11.6-17.2) Platelet Count 104 TH/MM3 (150-450) 95 TH/MM3 (150-450) Monocytes (%) (Auto) 9.3 % (0.0-8.0) 9.3 % (0.0-8.0) Lymphocytes # (Auto) 0.7 TH/MM3 (1.0-4.8) 0.6 TH/MM3 (1.0-4.8) Prothrombin Time 13.0 SEC (9.8-11.6) Creatinine 1.49 MG/DL (0.60-1.30) 1.39 MG/DL (0.60-1.30) 1.33 MG/DL (0.60-1.30) Random Glucose 119 MG/DL (74-106) Total Protein 5.3 GM/DL (6.4-8.2) 5.3 GM/DL (6.4-8.2) Albumin 2.4 GM/DL (3.4-5.0) 2.3 GM/DL (3.4-5.0) Calcium Level 7.4 MG/DL (8.5-10.1) 7.5 MG/DL (8.5-10.1) 7.7 MG/DL (8.5-10.1) Alkaline Phosphatase 211 U/L (45-117) 192 U/L (45-117) Potassium Level 3.2 MEQ/L (3.5-5.1) 3.4 MEQ/L (3.5-5.1) 3.3 MEQ/L (3.5-5.1) Estimat Glomerular Filtration Rate 47 ML/MIN (>89) 51 ML/MIN (>89) 53 ML/MIN (>89) Protein Corrected Calcium 8.4 MG/DL (8.5-10.1) White Blood Count 3.6 TH/MM3 (4.0-11.0) Neutrophils (%) (Auto) 70.6 % (16.0-70.0) Platelet Estimate LOW (NORMAL) Total Bilirubin 1.6 MG/DL (0.2-1.0) Lactate Dehydrogenase 247 U/L (87-241) Peritoneal Fluid WBC 277 /MM3 (0-10) Peritoneal Fluid RBC 642 /MM3 (0-0) Test 08/03/17 05:50 Red Blood Count 3.00 MIL/MM3 (4.50-5.90) Hemoglobin 9.3 GM/DL (13.0-17.0) Hematocrit 27.4 % (39.0-51.0) Platelet Count 94 TH/MM3 (150-450) Blood Urea Nitrogen 22 MG/DL (7-18) Creatinine 1.77 MG/DL (0.60-1.30) Random Glucose 168 MG/DL (74-106) Calcium Level 8.0 MG/DL (8.5-10.1) Estimat Glomerular Filtration Rate 38 ML/MIN (>89) Hospital Course (1) Cirrhosis 1. CML on gleevac 2. Liver cirrhosis/steatohepatitis in past bx 3. recurrent ascites and peripheral edema..probably related to cirrhosis. paracentesis 07/11...4.6L yellow fluid. no analysis performed. doesn't appear to be malignant. His echo from March not suggestive of chf 2d echo: 04/01....mild LVH. EF 60-65% mild AVS/mild mvr. mod pulmonary htn PAP 55. small pericardial effusion. -s/p paracentesis 4.7 L, yellow. 08/01 . appears to be consistent with portal htn 4. chronic GIB's with blood loss anemia.s/p extensive gi w/up here and at [place] has been transfusion dependent. 2 units 07/31 5. ckd 3 6. hx afib and pm 7. hypoalbumemia plan. enteroscopy performed on 08/02...discussed with dr Mejia. innumerable AVM's thoughout stomach/duodenum/jejunum. applied apc to many. He says pt likely has gi tract full of these and no therapy is available to cure it. He recommended periodically giving iron infusions to limit the number of blood transfusions. He also recommended against TIPS for his portal htn and ascites. pt will cont lasix and try low dose aldactone. If tolerates aldactone dr Coker will titrate it up as needed. Pt and think he had alot of cramping with the drug in past. Dr Coker to monitor bmp next week. IF persistent ascites then consider changing diuretics to bumex and/or having a standing order for paracentesis in the ROPU area at [facility]. Pt Condition on Discharge: Stable Discharge Disposition: Discharge Home Discharge Instructions DIET: Follow Instructions for: Heart Healthy Diet Activities you can perform: Regular-No Restrictions Follow up Referrals: Gastroenterology - 1 Week with Chanelle Thorpe MD Oncology - [address] coker New Medications: Spironolactone (Aldactone) 25 Mg Tab 25 MG PO DAILY for cirrhosis, #30 TAB Continued Medications: Alprazolam (Xanax) 0.5 Mg Tab 0.5 MG PO BID PRN for ANXIETY, TAB 0 Refills Amlodipine (Amlodipine) 5 Mg Tab 5 MG PO BID for Blood Pressure Management, #30 TAB 0 Refills Ascorbic Acid (Vitamin C) 100 Mg Tablet 500 MG PO DAILY Cholecalciferol (Vitamin D-1000) 1,000 Unit Tab 1000 UNITS PO DAILY for Nutritional Supplement, #1 BOTTLE 0 Refills Furosemide (Lasix) 40 Mg Tab 40 MG PO DAILY, #30 TAB 0 Refills Imatinib Mesylate (Gleevec) 100 Mg Tab 400 MG PO DAILY Levothyroxine (Levothyroxine) 100 Mcg Tab 150 MCG PO DAILY for Thyroid, #30 TAB 0 Refills Pantoprazole (Protonix) 40 Mg Tab 40 MG PO BID for Reflux, #30 TAB 0 Refills Paroxetine (Paxil) 30 Mg Tab 20 MG PO HS, #30 TAB 0 Refills Potassium Chloride ER (K-Tab) 10 Meq Tab 10 MEQ PO DAILY for Electrolyte Replacement, #60 TAB 0 Refills Simvastatin (Simvastatin) 10 Mg Tab 10 MG PO HS for Cholesterol Management, #30 TAB 0 Refills Sotalol (Afib/Afl) (Sotalol (AF)) 80 Mg Tab 80 MG PO BID for Regulate Heart Beat, #60 TAB 0 Refills Temazepam (Restoril) 30 Mg Cap 30 MG PO HS PRN for INSOMNIA, #30 CAP 0 Refills Dallas Garcia MD Aug 03, 2017 12:00
[2017-08-03 12:01] VITALS: BP 122/60; PULSE 62; RESP 18; TEMP 97.9; O2SAT 96
[2017-08-03] MEDS ORDERED: SODIUM CHLORIDE 0.9% FLUSH 10 ML FLUSH IV FLUSH PRN ×2 (12:30)
== END 2017-08-03 12:43 | disposition home or self-care (01) | DRG 345 ==
LOC: NEPE 14:16 → NEDA 17:38 → N05A 21:37
PROVIDERS: ADMIT Hospitalist; ATTEND Hospitalist
PROC: 30243N1 Transfusion of Nonautologous Red Blood Cells into Central Vein, Percutaneous Approach (ICD-10-PCS; 2017-07-31)
PROC: 0W9G3ZZ Drainage of Peritoneal Cavity, Percutaneous Approach (ICD-10-PCS; 2017-08-01)
PROC: 0D598ZZ Destruction of Duodenum, Via Natural or Artificial Opening Endoscopic (ICD-10-PCS; 2017-08-02)
PROC: 0D568ZZ Destruction of Stomach, Via Natural or Artificial Opening Endoscopic (ICD-10-PCS; 2017-08-02)
PROC: 0D5A8ZZ Destruction of Jejunum, Via Natural or Artificial Opening Endoscopic (ICD-10-PCS; principal; 2017-08-02 15:22)
DX: K31.811 Angiodysplasia of stomach and duodenum with bleeding (principal); N17.9 Acute kidney failure, unspecified; I31.3 Pericardial effusion (noninflammatory); C92.10 Chronic myeloid leukemia, BCR/ABL-positive, not having achieved remission; R18.8 Other ascites; N18.3 Chronic kidney disease, stage 3 (moderate); I50.9 Heart failure, unspecified; I13.0 Hypertensive heart and chronic kidney disease with heart failure and stage 1 through stage 4 chronic kidney disease, or unspecified chronic kidney disease; K76.6 Portal hypertension; D50.0 Iron deficiency anemia secondary to blood loss (chronic); I85.00 Esophageal varices without bleeding; D69.2 Other nonthrombocytopenic purpura; I27.20 Pulmonary hypertension, unspecified; I48.2 Chronic atrial fibrillation; K74.60 Unspecified cirrhosis of liver; K76.0 Fatty (change of) liver, not elsewhere classified; I25.10 Atherosclerotic heart disease of native coronary artery without angina pectoris; I25.2 Old myocardial infarction; D69.6 Thrombocytopenia, unspecified; K31.89 Other diseases of stomach and duodenum; E78.5 Hyperlipidemia, unspecified; E03.9 Hypothyroidism, unspecified; G47.33 Obstructive sleep apnea (adult) (pediatric); G30.9 Alzheimer's disease, unspecified; M19.90 Unspecified osteoarthritis, unspecified site; F02.80 Dementia in other diseases classified elsewhere, unspecified severity, without behavioral disturbance, psychotic disturbance, mood disturbance, and anxiety; F32.9 Major depressive disorder, single episode, unspecified; F41.9 Anxiety disorder, unspecified; Z86.73 Personal history of transient ischemic attack (TIA), and cerebral infarction without residual deficits; Z87.11 Personal history of peptic ulcer disease; Z95.0 Presence of cardiac pacemaker; Z95.5 Presence of coronary angioplasty implant and graft
CPT/HCPCS: 36430; 36591; 49083; 80048; 80053; 82042; 82150; 82945; 82948; 83615; 83735; 84157; 85025; 85027; 85610; 85730; 86850; 86900; 86901; 86902; 86920; 86922; 88305; 89051; 93005; C1729; J1642; J2405; J2550; J7050; P9016

== ENCOUNTER 2017-09-03 14:35 | Day surgery (SDC) | payer MEDICARE ==
[~2017-09-03 14:35] MED LIST changes: -BACL10TA PO; +SPIR25 PO; -VITA100064 PO
--- NOTE | 2017-09-05 11:47 | RADRPT ---
EXAM DATE/TIME: 09/03/2017 15:03 [facility] COMPARISON : INDICATIONS : ABDIMINAL PAIN / CIRRHOSIS OF THE LIVER OBJECTIVE: Temperature: 98.3 Heart Rate: 87 Blood Pressure: 151/76 Respiratory: 20 Oximetry: 99 PNEUMONIA VACCINE: HISTORY OF PRESENT ILLNESS: 71-year-old male with history of cryptogenic cirrhosis with several month history of intermittent gas troesophageal variceal hemorrhage requiring multiple banding procedures with persistent ongoing hemor rhage from gastric varices that are difficult to band. He has no significant history of encephalopath y. Na-MELD score of 16. Main complaint is malaise. Denies significant abdominal pain. PAST MEDICAL HISTORY : 1. Congestive heart failure. 2. AFIB 3. Hypertension. 4. avm 5. Myocardial infarction. 6. Sleep apnea. 7. Cirrhosis. 8. Stroke. PAST SURGICAL HISTORY : 1. PORT 2. PACEMAKER 3. Cholecystectomy. 4. HEART STENTS 5. SINUS 6. PANOSCOPY SOCIAL HISTORY : 1. AMIODORONE 2. dEMEROL MEDICATIONS: Lasix (Furesemide) 40 mg q.d. AMLODIPINE 5 mg q.d. IMATINIB 400 mg q.d. POTASSIUM 10 MEQ q.d. LEVOTHYROXINE 100 mcg q.d. PROTONIX 40 mg b.i.d. TEMAZEPAM 30 mg q.h.s. SIMVASTATIN 10 mg q.h.s. ALPRAZOLAM 0.5 mg b.i.d. ALDACTONE 25 mg q.d. PHYSICAL EXAMINATION: General: No acute distress Abdomen: Soft, nontender nondistended. IMAGING STUDIES: PET/CT exam dated 08/22/[address] exam dated 08/13/2017 are reviewed. These demonstrate a cirr hotic liver with [id number] amount of ascites and moderate right pleural effusion there are mi ldly prominent gastroesophageal varices although both CT exams are noncontrast enhanced. Spleen is en larged. ASSESSMENT: 71-year-old male with history of cryptogenic cirrhosis and persistent gastroesophageal variceal bleed ing despite multiple banding procedures. He has a marginal Na-MELD score of 16 without history of sig nificant encephalopathy. ECOG 1. He is a reasonable candidate for TIPS procedure although of moderate risk given marginal MELD score and age. Extensive discussion regarding risks and benefits of TIPS procedure. The patient and aware that approximately 30% of patients without a history of prior encephalopathy develop encephalopathy follow ing TIPS procedure, of which 20% are due to progression of liver disease. All questions were answered . PLAN: Patient was encouraged to further consider his options. TIPS procedure may be performed if patient el ects to proceed. TIME SPENT: 30 minutes. Carlos Shah MD on September 05, 2017 at 11:31 Board Certified Radiologist. This report was verified electronically.
== END 2017-09-03 16:25 | disposition home or self-care (01) ==
LOC: HROP 14:35 → HRIP 14:36 → HROP 16:25
PROVIDERS: ATTEND Internal Medicine Gastroenterology
DX: R18.8 Other ascites (principal)
CPT/HCPCS: 99212; G0463

== ENCOUNTER → 2017-10-25 | Outpatient (CLI) | payer MEDICARE ==
[~2017-10-25] VITALS: Ht 167.6 cm; Wt 86.2 kg
[~2017-10-25] MED LIST changes: -AMLO5TAB2 PO; +CITA20TA4 PO; +LIDOCAINE HCL 1% PF 5 ML SYRINGE OTHER ONE; +LOMO2.5T PO; +METO25TA3 PO; -PAXI30TA7 PO; +PROC10TA PO; +PROPOFOL 200 MG/20 ML AMP IV ONE; +SODIUM CHLORIDE 0.9% FLUSH 10 ML FLUSH IV FLUSH PRN; -SOTA80TA6 PO
[2017-10-25 10:05] VITALS: BP 129/62; PULSE 70; RESP 18; TEMP 98.1; O2SAT 99
[2017-10-25 10:16] LABS: AUTOMATED NEUTROPHIL # 2.1 TH/MM3 (1.8-7.7); BASOPHIL % 0.6 % (0.0-2.0); EOSINOPHIL # 0.1 TH/MM3 (0-0.4); EOSINOPHIL % 4.2 % (0.0-4.0); HEMATOCRIT 25.6 % (39.0-51.0); HEMOGLOBIN 8.9 GM/DL (13.0-17.0); LYMPH % 15.4 % (9.0-44.0); LYMPHOCYTE # 0.5 TH/MM3 (1.0-4.8); MEAN CELL VOLUME 89.9 FL (80.0-100.0); MEAN CORPUSCULAR HEMOGLOBIN 31.2 PG (27.0-34.0); MEAN CORPUSCULAR HGB CONC 34.6 % (32.0-36.0); MONO % 10.5 % (0.0-8.0); MONOCYTE # 0.3 TH/MM3 (0-0.9); NEUT % 69.3 % (16.0-70.0); PLATELET COUNT 82 TH/MM3 (150-450); RED BLOOD COUNT 2.84 MIL/MM3 (4.50-5.90); RED CELL DISTRIBUTION WIDTH 15.6 % (11.6-17.2)
[2017-10-25 10:22] LABS: INTERNATIONAL NORMALIZED RATIO 1.2 RATIO; PROTHROMBIN TIME - PATIENT 12.5 SEC (9.8-11.6)
--- NOTE | 2017-10-25 12:18 | GIPROC ---
[facility] [address] [facility], [address] EGD PROCEDURE REPORT EXAM DATE: 10/25/2017 PATIENT NAME: Pa Quintero MR #: [id number] BIRTHDATE: 1945 ATTENDING: Chanelle Thorpe MD ORDER #: [id number] ASPHALT DAUBER: Jeni Walton and Carolyn Tay STATUS: outpatient INDICATIONS: The patient is a 72 yr old male here for an EGD due to cirrhosis, GAVE, anemia, recurrent gi bleeding PROCEDURE PERFORMED: EGD w/ ablation egd with ablation of avm /gave with apc MEDICATIONS: None and Per Anesthesia. TOPICAL ANESTHETIC: none CONSENT: The patient understands the risks and benefits of the procedure and understands that these risks include, but are not limited to: sedation, allergic reaction, infection, perforation and/or bleeding. Alternative means of evaluation and treatment include, among others: physical exam, x-rays, and/or surgical intervention. The patient elects to proceed with this endoscopic procedure. medical equipment was checked for proper function. Hand hygiene and appropriate measures for infection prevention was taken. After the risks, benefits and alternatives of the procedure were thoroughly explained, Informed consent was verified, confirmed and timeout was successfully executed by the treatment team. The patient was anesthetized with topical anesthesia and the Pentax [id number] and EC-3490Li (Pedi C) endoscope was introduced through the mouth and advanced to the second portion of the duodenum. Retroflexed views revealed a hiatal hernia The gastroscope was then slowly withdrawn and removed. Multiple AVMs in duodenum-s/p APC GAVE in antrum -s/p APC esophageal varices grade 1. ADVERSE EVENTS: There were no complications. IMPRESSIONS: 1. Multiple AVMs in duodenum-s/p APC GAVE in antrum -s/p APC esophageal varices grade 1 2. Retroflexed views revealed no abnormalities RECOMMENDATIONS: 1. Anti-reflux regimen 2. Continue PPI 3. Avoid NSAIDS PATIENT CONDITION: stable DISPOSITION: Home REPEAT EXAM: Return 3 months EGD Chanelle Thorpe MD eSigned: Chanelle Thorpe MD 10/25/2017 12:17 PM cc:
[2017-10-25 13:02] VITALS: BP 118/61; PULSE 74; RESP 18; TEMP 97.8; O2SAT 97
--- NOTE | 2017-10-25 14:42 | EKG ---
Date Performed: 10/25/2017 Time Performed: 09:49:14 PTAGE: 72 years EKG: ELECTRONIC ATRIAL PACEMAKER NONSPECIFIC T-WAVE ABNORMALITY Since previous tracing, no signi ficant change noted ABNORMAL RHYTHM ECG PREVIOUS TRACING : 08/02/2017 03.37 DOCTOR: Leticia Benavidez Interpretating Date/Time 10/25/2017 14:40:57
== END ==
LOC: HSDC 08:54
PROVIDERS: ATTEND Internal Medicine Gastroenterology
DX: K74.60 Unspecified cirrhosis of liver (principal); I85.11 Secondary esophageal varices with bleeding; Q27.33 Arteriovenous malformation of digestive system vessel; K31.819 Angiodysplasia of stomach and duodenum without bleeding; K44.9 Diaphragmatic hernia without obstruction or gangrene; D63.8 Anemia in other chronic diseases classified elsewhere; D69.6 Thrombocytopenia, unspecified
CPT/HCPCS: 00731; 43270; 85025; 85610; 93005; J1642

== ENCOUNTER → 2018-01-30 | Outpatient (CLI) | payer MEDICARE ==
[~2018-01-30] MED LIST changes: +DO NOT ADM ANY ANTICOAGULANT DRUGS PRN; +PHENYLEPH/NS 1000 MCG/10 ML SYR IV ONE; +SUCCINYLCHOLINE CHLORIDE 100 MG/5 ML SYRINGE IV PUSH ONE; +ePHEDrine/NS 25 MG/5 ML SYRINGE IV ONE
[2018-01-30 10:06] VITALS: BP 130/67; PULSE 87; RESP 20; TEMP 98.6; O2SAT 100
--- NOTE | 2018-01-30 11:45 | GIPROC ---
[facility] [address] [facility]. [facility], [address] EGD PROCEDURE REPORT EXAM DATE: 01/30/2018 PATIENT NAME: Pa Quintero MR #: [id number] BIRTHDATE: 1945 ATTENDING: Chanelle Thorpe MD ORDER #: [id number] ROUNDER AND BACKER: Honey Cardenas and Jeni Walton STATUS: outpatient INDICATIONS: The patient is a 72 yr old male here for an EGD due to anemia, gi bleeding, history of GAVE, avms small intestine, liver cirrhosis PROCEDURE PERFORMED: EGD w/ ablation egd/enteroscopy with APC MEDICATIONS: None and Per Anesthesia. TOPICAL ANESTHETIC: none CONSENT: The patient understands the risks and benefits of the procedure and understands that these risks include, but are not limited to: sedation, allergic reaction, infection, perforation and/or bleeding. Alternative means of evaluation and treatment include, among others: physical exam, x-rays, and/or surgical intervention. The patient elects to proceed with this endoscopic procedure. medical equipment was checked for proper function. Hand hygiene and appropriate measures for infection prevention was taken. After the risks, benefits and alternatives of the procedure were thoroughly explained, Informed consent was verified, confirmed and timeout was successfully executed by the treatment team. The patient was anesthetized with topical anesthesia and the [id number] (Pedi C) endoscope was introduced through the mouth and advanced to the proximal jejunum. Retroflexed views revealed a hiatal hernia The gastroscope was then slowly withdrawn and removed. Portal gastropathy esophageal varices grade multiple AVM's in antrum/GAVE and body of stomach , some of them oozing with blood s/p APC multiple small AVM's in duodenum s/p APC. ADVERSE EVENTS: There were no complications. IMPRESSIONS: 1. Portal gastropathy esophageal varices grade multiple AVM's in antrum/GAVE and body of stomach , some of them oozing with blood s/p APC multiple small AVM's in duodenum s/p APC 2. Retroflexed views revealed a hiatal hernia RECOMMENDATIONS: Soft diet ppi Carafate liquid cbc stat fu with for prbc PATIENT CONDITION: stable DISPOSITION: Home REPEAT EXAM: Return 2 weeks EGD with BARRX probe-,Zana plus APC-please call Zana to arrange for BARRX probe Chanelle Thorpe MD eSigned: Chanelle Thorpe MD 01/30/2018 11:44 AM cc: PATIENT NAME: Pa Quintero MR#: [id number]
[2018-01-30 12:17] LABS: AUTOMATED NEUTROPHIL # 3.7 TH/MM3 (1.8-7.7); BASOPHIL % 0.5 % (0.0-2.0); EOSINOPHIL # 0.2 TH/MM3 (0-0.4); EOSINOPHIL % 3.3 % (0.0-4.0); HEMATOCRIT 23.1 % (39.0-51.0); HEMOGLOBIN 7.9 GM/DL (13.0-17.0); LYMPH % 15.3 % (9.0-44.0); LYMPHOCYTE # 0.8 TH/MM3 (1.0-4.8); MEAN CELL VOLUME 92.2 FL (80.0-100.0); MEAN CORPUSCULAR HEMOGLOBIN 31.5 PG (27.0-34.0); MEAN CORPUSCULAR HGB CONC 34.2 % (32.0-36.0); MEAN PLATELET VOLUME 8.9 FL (7.0-11.0); MONO % 7.2 % (0.0-8.0); MONOCYTE # 0.4 TH/MM3 (0-0.9); NEUT % 73.7 % (16.0-70.0); PLATELET COUNT 117 TH/MM3 (150-450); RED BLOOD COUNT 2.51 MIL/MM3 (4.50-5.90); RED CELL DISTRIBUTION WIDTH 19.2 % (11.6-17.2)
[2018-01-30 12:38] VITALS: BP 114/50; PULSE 61; RESP 16; TEMP 98.6; O2SAT 99
== END ==
LOC: HSDC 09:01
PROVIDERS: ATTEND Internal Medicine Gastroenterology
DX: K31.811 Angiodysplasia of stomach and duodenum with bleeding (principal); K44.9 Diaphragmatic hernia without obstruction or gangrene; K31.9 Disease of stomach and duodenum, unspecified; D64.9 Anemia, unspecified; K74.60 Unspecified cirrhosis of liver
CPT/HCPCS: 00731; 43255; 85025; J0330; J2370

== ENCOUNTER 2018-02-07 08:02 | Day surgery (SDC) | payer MEDICARE ==
[~2018-02-07 08:02] MED LIST changes: -DO NOT ADM ANY ANTICOAGULANT DRUGS PRN; -LIDOCAINE HCL 1% PF 5 ML SYRINGE OTHER ONE; -PHENYLEPH/NS 1000 MCG/10 ML SYR IV ONE; -PROPOFOL 200 MG/20 ML AMP IV ONE; -SODIUM CHLORIDE 0.9% FLUSH 10 ML FLUSH IV FLUSH PRN; -SUCCINYLCHOLINE CHLORIDE 100 MG/5 ML SYRINGE IV PUSH ONE; -ePHEDrine/NS 25 MG/5 ML SYRINGE IV ONE
[2018-02-07 10:10] VITALS: BP 124/59; PULSE 64; RESP 16; TEMP 98.2; O2SAT 99
[2018-02-07 10:35] VITALS: BP 116/52; PULSE 64; RESP 18; O2SAT 97
--- NOTE | 2018-02-07 11:17 | PD.RAD ---
Post US Procedure Prog Note Pre Procedure Diagnosis: (1) Ascites Post Procedure Diagnosis: (1) Ascites Procedure Date: February 07, 2018 Supervising Radiologist: Rebel Wills Anesthesia: Local Plan of Activity See PACS Report for procedural detail/treatment Drainage Procedure Procedure 1 Imaging Guidance: Ultrasound Side: Right Procedure Type: Paracentesis Procedure: Removal Fluid Description: Clear, Yellow Rebel Wills MD February 07, 2018 11:17
[2018-02-07] MEDS ORDERED: LIDOCAINE HCL 1% 20 ML VIAL ONE (13:48)
--- NOTE | 2018-02-07 13:57 | RADRPT ---
EXAM DATE: 02/07/2018 10:10 AM EDT AGE/SEX: 72 years / Male INDICATIONS: Ascites. CLINICAL DATA: This is the patient's initial encounter. Patient reports that signs and symptoms have been present for 4 - 6 months and indicates a pain score of 0/10. MEDICAL/SURGICAL HISTORY: Congestive heart failure. Leukemia. Hypothyroidism. Hypertension. Ci rrhosis. Atrial fibrillation. Diabetic renal disease. Obstructive sleep apnea. Cholecystectomy. Pac emaker. Sinus surgery. Liver biopsy. EGD. COMPARISON: [facility], US GUIDED ABD PARACENTESIS, 08/01/2017. . FLUID: Total volume of 2,300 cc of cloudy, yellow fluid was removed. Fluid was discarded. Paracentesis was t herapeutic only. . . TECHNIQUE: Ultrasound guidance for abdominal paracentesis. Paracentesis. The risks, benefits, and alternatives to ultrasound guided paracentesis were explained to the patient in detail including the risk of bleeding and infection. Written and verbal informed consent was obt ained. With the patient on the ultrasound table, ultrasound imaging was used to select the most appropriate approach for paracentesis. Overlying skin was prepped and draped in the usual sterile fashion and wi th a local anesthetic, a dermatotomy was made with an 11 blade scalpel. A 6 [place] Gyr-[id number] ca theter was introduced into the peritoneal cavity and fluid was collected. Post procedure scanning reveals no hematoma or other complication. The patient tolerated the procedu re well and left the ultrasound suite in stable condition. CONCLUSION: Uncomplicated ultrasound-guided paracentesis completed. Electronically signed by: Rebel Wills MD 02/07/2018 1:56 PM EDT
== END 2018-02-07 10:52 | disposition home or self-care (01) ==
LOC: HRAD 08:02 → HRIP 08:05 → HRAD 10:52
PROVIDERS: ATTEND Internal Medicine Gastroenterology
DX: R18.8 Other ascites (principal); I50.9 Heart failure, unspecified; I11.0 Hypertensive heart disease with heart failure; E03.9 Hypothyroidism, unspecified; C95.90 Leukemia, unspecified not having achieved remission; K74.60 Unspecified cirrhosis of liver; I48.91 Unspecified atrial fibrillation; G47.33 Obstructive sleep apnea (adult) (pediatric); E11.22 Type 2 diabetes mellitus with diabetic chronic kidney disease; I12.9 Hypertensive chronic kidney disease with stage 1 through stage 4 chronic kidney disease, or unspecified chronic kidney disease; N18.9 Chronic kidney disease, unspecified
CPT/HCPCS: 49083; C1729

== ENCOUNTER 2018-05-15 14:30 | Inpatient (IN) ==
[2018-05-15 16:02] LABS: Baso % (Auto) 0.5 % (0.0-2.0); Eos # (Auto) 0.1 th/mm3 (0.0-0.4); Eos % (Auto) 3.4 % (0.0-4.0); Lymph # (Auto) 0.6 th/mm3 (1.0-4.8); Lymph % (Auto) 20.7 % (9.0-44.0); Mean Corpuscular HGB Conc 33.7 % (32.0-36.0); Mean Corpuscular Hemoglobin 32.4 pg (27.0-34.0); Mean Corpuscular Volume 95.9 fL (80.0-100.0); Mean Platelet Volume 8.3 fL (7.0-11.0); Mono # (Auto) 0.3 th/mm3 (0.0-0.9); Mono % (Auto) 11.6 % (0.0-8.0); Neut # (Auto) 1.8 th/mm3 (1.8-7.7); Neut % (Auto) 63.8 % (16.0-70.0); Platelet Count 91 th/mm3 (150-450); Red Blood Count 2.17 mil/mm3 (4.50-5.90); Red Cell Distribution Width 16.4 % (11.6-17.2); White Blood Count 2.9 th/mm3 (4.0-11.0)
--- NOTE | 2018-05-15 16:06 | ED ---
HPI General Chief Complaint: Recheck/Abnormal Lab/Rx Stated Complaint: Blood Transfusion Time Seen by Provider: 05/15/18 15:20 Source: patient Mode of arrival: ambulatory Limitations: no limitations History of Present Illness HPI narrative: The patient is a 72-year-old male partner from the [facility] for symptomatic anemia with a GI bleed. The patient has a history of CML oral medications. He is followed by his oncologist, Dr. Tran. The patient had a hemoglobin performed yesterday that was 6.8, was transfused 1 unit today, repeat hemoglobin was 6.0. The patient states his last endoscopy was performed 2 weeks ago at [facility] by Dr. Juarez, the patient does have a history of varices and hepatic steatosis. The patient denies any anticoagulation. The patient does note he is currently having dark colored stools, does have a history of previous GI bleeds with multiple endoscopies and colonoscopies. The patient was referred to the emergency department to be admitted to the medical service by his oncologist for blood transfusion and GI evaluation. Symptoms are moderate. He does complain of exertional shortness of breath, generalized weakness, and occasional orthostatic symptoms. MD complaint: abnormal lab Related Data Home Medications Medication Instructions Recorded Confirmed ascorbic acid (vitamin C) 500 mg PO DAILY 05/11/18 05/11/18 cholecalciferol (vitamin D3) 2,000 unit PO DAILY 05/11/18 05/11/18 citalopram 40 mg PO BID 05/11/18 05/11/18 diphenoxylate-atropine [Lomotil] 1 tab PO Q6-8H PRN 05/11/18 05/11/18 furosemide 40 mg PO DAILY 05/11/18 05/11/18 imatinib 400 mg PO DAILY 05/11/18 05/15/18 levothyroxine 150 mcg PO DAILY 05/11/18 05/15/18 metoprolol tartrate 25 mg PO DAILY 05/11/18 05/15/18 pantoprazole 40 mg PO BID 05/11/18 05/15/18 potassium chloride 10 meq PO DAILY 05/11/18 05/15/18 simvastatin 5 mg PO QPM 05/11/18 05/15/18 spironolactone 25 mg PO BID 05/11/18 05/15/18 temazepam 30 mg PO HS 05/11/18 05/15/18 Allergies Allergy/AdvReac Type Severity Reaction Status Date / Time benazepril Allergy Severe ANGIOEDEMA Verified 05/15/18 15:22 captopril Allergy Severe ANGIOEDEMA Verified 05/15/18 15:22 enalaprilat Allergy Severe ANGIOEDEMA Verified 05/15/18 15:22 fosinopril Allergy Severe ANGIOEDEMA Verified 05/15/18 15:22 lisinopril Allergy Severe ANGIOEDEMA Verified 05/15/18 15:22 meperidine Allergy Severe Anaphylaxis Verified 05/15/18 15:22 quinapril Allergy Severe ANGIOEDEMA Verified 05/15/18 15:22 amiodarone AdvReac Intermediate Swelling Verified 05/15/18 15:22 DASATINIB AdvReac Unknown Edema Uncoded 05/11/18 13:42 Review of Systems ROS: all other systems reviewed are negative [facility] Medical History Medical History Hyperlipidemia (Acute) GERD (gastroesophageal reflux disease) (Acute) Thyroid disease (Acute) Liver cirrhosis (Acute) HTN (hypertension) (Acute) Surgical History Surgical History H/O heart artery stent (Acute) Hx of tonsillectomy (Acute) Hx of cholecystectomy (Acute) Social History Social History Substance History: No History of Abuse Second Hand Smoke Exposure: No Smoking Status: Never smoker How Often Do You Have a Drink Containing Alcohol: Never Recent Travel in [facility] within the Last 8 Weeks: No Recent Out of Country Travel within the Last 8 Weeks: No Immunization History Tetanus Immunization: Unsure Hx Influenza Vaccine This Season: No Exam Narrative Exam Narrative: GENERAL: Awake, alert, pleasant 72-year-old male who appears his stated age and is in no acute respiratory distress. SKIN: Focused skin assessment warm/dry. HEAD: Atraumatic. Normocephalic. EYES: Pupils equal and round. Mild pallor of the lower lids. ENT: No nasal bleeding or discharge. Mucous membranes pink and moist. NECK: Trachea midline. No JVD. CARDIOVASCULAR: Regular rate and rhythm. No murmur appreciated. Pacemaker in place left chest wall. RESPIRATORY: No accessory muscle use. Clear to auscultation. Breath sounds equal bilaterally. GASTROINTESTINAL: Abdomen soft, no rebound tenderness, guarding, or rigidity. MUSCULOSKELETAL: No obvious deformities. No clubbing. No cyanosis. No edema. Rectal: No gross blood. Grossly guaiac positive. NEUROLOGICAL: Awake and alert. No obvious cranial nerve deficits. Motor grossly within normal limits. Normal speech. PSYCHIATRIC: Appropriate mood and affect; insight and judgment normal. Procedures Hemaprompt Stool Procedural Steps Taken: specimen placed in appropriate test area Hemaprompt Stool Result: positive Course Initial Documented Vital Signs Temperature 98.9 F 05/15/18 15:13 Pulse Rate 77 05/15/18 15:13 Respiratory Rate 18 05/15/18 15:13 Blood Pressure 140/65 05/15/18 15:13 Pulse Oximetry 100 05/15/18 15:13 Last Documented Vital Signs Temperature 98.9 F 05/15/18 15:13 Pulse Rate 80 05/15/18 15:40 Respiratory Rate 18 05/15/18 15:40 Blood Pressure 154/65 H 05/15/18 15:40 Pulse Oximetry 100 05/15/18 15:40 Critical Care Time Critical Care Time: Yes (35) Total Critical Care Time: 35 Attestation: Aggregate critical care time was 35 minutes. Time to perform other separately billable procedures was not included in the critical care time. My time did not include minutes spent treating any other patients simultaneously or on activities that did not directly contribute to the patient's treatment. The services I provided to this patient were to treat and/or prevent clinically significant deterioration that could result in: Anoxia, hypoxia, hemorrhagic shock, volume overload, flash pulmonary edema, . I provided critical care services requiring my management, as noted below: Chart data review, documentation time, medication orders and management, vital sign assessments/reviewing monitor data, ordering and reviewing lab tests, ordering and interpreting/reviewing x-rays and diagnostic studies, care of the patient and discussion of the patient with the admitting physicians. Medical Decision Making MDM Narrative Medical decision making narrative: IV was established, labs are drawn and sent, and the patient was placed on cardiac telemetry monitoring and continuous pulse oximetry monitoring. I had a discussion with the patient's oncologist, Dr. Tran, who recommends admission to the medical service, transfusion to try to get hemoglobin greater than 8-10 and for gastroenterology evaluation. He also advises that the patient may need a paracentesis if he has significant ascites. Therefore, CBC was sent to lab. The patient's hemoglobin 7.0, hematocrit 20.8. I discussed the patient with Dr. Tran who recommends admission, GI consultation, possibly IR consultation for removal of ascites. The patient will be transfused 2 units of PRBCs. I discussed the patient with Dr. Acuña who agrees with admission. I discussed the plan of care with the patient who is comfortable with this plan of care. Medical Screen Exam Complete: Yes Emergency Medical Condition: Yes Differential Diagnosis Differential Diagnosis: Differential diagnosis includes symptomatic anemia, CML , upper GI bleed, lower GI bleed, coagulopathy, varices, peptic ulcer disease, gastritis, AV malformation. Lab Data Lab results reviewed: Yes I reviewed the patient's lab results. Lab results narrative: Hemoglobin was 7.0, hematocrit 20.8. BUN 32, creatinine 2.20. Result diagrams: 05/15/18 15:45 05/15/18 15:45 Lab Results 05/15/18 05/15/18 05/15/18 Range/Units 15:45 15:45 15:45 WBC 2.9 L (4.0-11.0) th/mm3 RBC 2.17 L (4.50-5.90) mil/mm3 Hgb 7.0 L (13.0-17.0) gm/dL Hct 20.8 L* (39.0-51.0) % MCV 95.9 (80.0-100.0) fL MCH 32.4 (27.0-34.0) pg MCHC 33.7 (32.0-36.0) % RDW 16.4 (11.6-17.2) % Plt Count 91 L (150-450) th/mm3 MPV 8.3 (7.0-11.0) fL Prelim Diff (Auto) Slide review pending Neut % (Auto) 63.8 (16.0-70.0) % Lymph % (Auto) 20.7 (9.0-44.0) % Barber % (Auto) 11.6 H (0.0-8.0) % Eos % (Auto) 3.4 (0.0-4.0) % Baso % (Auto) 0.5 (0.0-2.0) % Neut # (Auto) 1.8 (1.8-7.7) th/mm3 Lymph # (Auto) 0.6 L (1.0-4.8) th/mm3 Barber # (Auto) 0.3 (0.0-0.9) th/mm3 Eos # (Auto) 0.1 (0.0-0.4) th/mm3 Baso # (Auto) 0.0 (0.0-0.2) th/mm3 WBC Differential . Diff Scan Auto diff confirmed Differential Comment . PT 12.6 H (9.8-11.6) sec INR 1.2 Ratio APTT 33.3 H (24.3-30.1) sec Sodium 140 (136-145) meq/L Potassium 3.8 (3.5-5.1) meq/L Chloride 108 H (98-107) meq/L Carbon Dioxide 21.1 (21.0-32.0) meq/L Anion Gap 11 (5-15) meq/L BUN 32 H (7-18) mg/dL Creatinine 2.20 H (0.60-1.30) mg/dL Estimated GFR 30 L (>89) mL/min Random Glucose 109 H (74-106) mg/dL Calcium 7.4 L* (8.5-10.1) mg/dL Prot Corrected Calcium 8.5 (8.5-10.1) mg/dL Total Bilirubin 1.0 (0.2-1.0) mg/dL AST 40 H (15-37) U/L ALT 42 (12-78) U/L Alkaline Phosphatase 176 H (45-117) U/L Total Protein 5.1 L (6.4-8.2) g/dL Albumin 2.2 L (3.4-5.0) g/dL Discharge Plan Discharge Disposition Patient Disposition: 30 Still Patient Discharge Condition Condition: Stable Discharge Details Diagnosis: Symptomatic anemia, GI bleed, History of chronic myeloid leukemia Physicians Team ED Provider: Obinna German Primary Care Provider: Dwayne Florian Attending Provider: Dimas Acuña Other Providers: Toby Astudillo Status ED Status: Admitted Patient
[2018-05-15 16:12] LABS: Activated Partial Thrombo Time 33.3 sec (24.3-30.1); Hematocrit 20.8 % (39.0-51.0); INR 1.2 Ratio; Prothrombin Time 12.6 sec (9.8-11.6)
[2018-05-15 16:33] LABS: Albumin 2.2 g/dL (3.4-5.0); Calcium 7.4 mg/dL (8.5-10.1); Carbon Dioxide 21.1 meq/L (21.0-32.0); Potassium 3.8 meq/L (3.5-5.1); Total Protein 5.1 g/dL (6.4-8.2)
--- NOTE | 2018-05-15 16:55 | P.HP ---
<Mel Crawford W - Last Filed: 05/15/18 17:08> History of Present Illness Chief Complaint: anemia History of Present Illness: Patient is a 72-year-old male with a history of mild Alzheimer's, recurrent anemia, CML, Mead Feli Syndrome, afib with PPM NJ stent x2, ascites from cirrhosis esophageal varices and thyroid disease. Patient presents to the emergency department per recommendations by his oncologist Dr. Tran for blood transfusion and GI evaluation. The patient had a hemoglobin performed yesterday that was 6.8, was transfused 1 unit today, repeat hemoglobin was 6.0. The patient states his last endoscopy was performed 2 weeks ago at [facility] by Dr. Juarez, the patient does have a history of varices and hepatic steatosis. The patient denies any anticoagulation. The patient does note he is currently having dark colored stools, does have a history of previous GI bleeds with multiple endoscopies and colonoscopies. He does complain of exertional shortness of breath, generalized weakness, and occasional orthostatic hypotension symptoms. Patient denies chest pain, nausea or vomiting. hgb in the ER on admission 7.0 Past Medical History mild Alzheimer's ,severe recurrent anemia, CML, Mead Feli Syndrome, afib with PPM NJ stent x 2 ascites from cirrhosis esophageal varices thyroid disease Past Surgical History balloon for varices,gallbladder,cardiac stent times 2,rt chest infusaport, pacemaker,medronic,sinus surgery urethral strictures Social History denies ETOH use or tobacco use - Diagnosis (1) Anemia Inpatient Certification: I certify that the inpatient services were ordered in accordance with Medicare regulations governing the order. This includes certification that hospital inpatient services are reasonable and necessary and in the case of services not specified as inpatient-only under 42 CFR 419.22(n), that they are appropriately provided as inpatient services in accordance to with the 2-midnight benchmark under 43 CFR 412.3(e) Review of Systems All other systems reviewed negative except as stated in HPI PMFSH - History History Provided By: Patient - Medical History Medical History: Medical History (Last Updated 05/15/18 @ 15:25 by Nereida Andrew) Hyperlipidemia (Acute) GERD (gastroesophageal reflux disease) (Acute) Thyroid disease (Acute) Liver cirrhosis (Acute) HTN (hypertension) (Acute) - Surgical History Surgical History: Surgical History (Last Updated 05/15/18 @ 15:25 by Nereida Roberts H/O heart artery stent (Acute) Hx of tonsillectomy (Acute) Hx of cholecystectomy (Acute) - Tobacco History Second Hand Smoke Exposure: No Smoking Status: Never smoker - Alcohol History How Often Do You Have a Drink Containing Alcohol: Never - Substance Use History Substance History: No History of Abuse - Travel History Recent Travel in the [place] Within the Last 8 Weeks: No Recent Travel Out of the Country Within the Last 8 Weeks: No - Immunization History Tetanus Immunization: Unsure Hx Influenza Vaccine This Season: No Medications and Allergies Allergies Allergy/AdvReac Type Severity Reaction Status Date / Time benazepril Allergy Severe ANGIOEDEMA Verified 05/15/18 15:22 captopril Allergy Severe ANGIOEDEMA Verified 05/15/18 15:22 enalaprilat Allergy Severe ANGIOEDEMA Verified 05/15/18 15:22 fosinopril Allergy Severe ANGIOEDEMA Verified 05/15/18 15:22 lisinopril Allergy Severe ANGIOEDEMA Verified 05/15/18 15:22 meperidine Allergy Severe Anaphylaxis Verified 05/15/18 15:22 quinapril Allergy Severe ANGIOEDEMA Verified 05/15/18 15:22 amiodarone AdvReac Intermediate Swelling Verified 05/15/18 15:22 DASATINIB AdvReac Unknown Edema Uncoded 05/11/18 13:42 Home Medications Medication Instructions Recorded Confirmed Type ascorbic acid (vitamin C) 500 mg PO DAILY 05/11/18 05/11/18 History cholecalciferol (vitamin D3) 2,000 unit PO DAILY 05/11/18 05/11/18 History citalopram 40 mg PO BID 05/11/18 05/11/18 History diphenoxylate-atropine [Lomotil] 1 tab PO Q6-8H PRN 05/11/18 05/11/18 History furosemide 40 mg PO DAILY 05/11/18 05/11/18 History imatinib 400 mg PO DAILY 05/11/18 05/15/18 History levothyroxine 150 mcg PO DAILY 05/11/18 05/15/18 History metoprolol tartrate 25 mg PO DAILY 05/11/18 05/15/18 History pantoprazole 40 mg PO BID 05/11/18 05/15/18 History potassium chloride 10 meq PO DAILY 05/11/18 05/15/18 History simvastatin 5 mg PO QPM 05/11/18 05/15/18 History spironolactone 25 mg PO BID 05/11/18 05/15/18 History temazepam 30 mg PO HS 05/11/18 05/15/18 History Active Medications: Active Medications Sodium Chloride (Ns Inj) 250 mls @ 15 mls/hr IV.SIG ONCE MARSHA Stop: 05/16/18 09:39 Sodium Chloride (Ns Flush) 2 ml IV.FLUSH PRN PRN PRN Reason: FLUSH AFTER USING IV ACCESS Exam Vital signs: Vital Signs 05/15/18 15:13 05/15/18 15:38 05/15/18 15:40 Temperature 98.9 F Pulse Rate 77 80 Respiratory Rate 18 18 Blood Pressure 140/65 154/65 H Pulse Oximetry 100 100 100 Intake & Output 05/14/18 05/15/18 05/15/18 18:59 06:59 18:59 Weight 86.636 kg Narrative: GENERAL: This is chronically ill appearing, well-developed patient CARDIOVASCULAR: Regular rate and rhythm RESPIRATORY: Clear to auscultation. Breath sounds equal bilaterally. GASTROINTESTINAL: Abdomen soft, non-tender, distended. Normal active bowel sounds MUSCULOSKELETAL: Extremities without clubbing, cyanosis, or edema. NEURO: Alert & Oriented. Moves all ext x4 Results - Labs CBC & Chem 7: 05/15/18 15:45 05/15/18 15:45 Labs: Laboratory Results - last 24 hr 05/15/18 05/15/18 15:45 15:45 WBC 2.9 L RBC 2.17 L Hgb 7.0 L Hct 20.8 L* MCV 95.9 MCH 32.4 MCHC 33.7 RDW 16.4 Plt Count 91 L MPV 8.3 Prelim Diff (Auto) Slide review pending Neut % (Auto) 63.8 Lymph % (Auto) 20.7 [place] % (Auto) 11.6 H Eos % (Auto) 3.4 Baso % (Auto) 0.5 Neut # (Auto) 1.8 Lymph # (Auto) 0.6 L [place] # (Auto) 0.3 Eos # (Auto) 0.1 Baso # (Auto) 0.0 Differential Comment . PT 12.6 H INR 1.2 APTT 33.3 H Caprini VTE Risk Assessment Caprini VTE Risk Assessment: Moderate/High Risk (score >= 2) Caprini Risk Assessment Model: Point Value = 1 Point Value = 2 Point Value = 3 Point Value = 5 Age 41-60 Minor surgery BMI > 25 kg/m2 Swollen legs Varicose veins or History of unexplained or recurrent spontaneous Oral contraceptives or hormone replacement Sepsis (< 1 month) Serious lung disease, including pneumonia (< 1 month) Abnormal pulmonary function Acute myocardial infarction Congestive heart failure (< 1 month) History of inflammatory bowel disease Medical patient at bed rest Age 61-74 Arthroscopic surgery Major open surgery (> 45 min) Laparoscopic surgery (> 45 min) Malignancy Confined to bed (> 72 hours) Immobilizing plaster cast Central venous access Age >= 75 History of VTE Family history of VTE Factor V Leiden Prothrombin [id number] Lupus anticoagulant Anticardiolipin antibodies Elevated serum homocysteine Heparin-induced thrombocytopenia Other congenital or acquired thrombophilia Stroke (< 1 month) Elective arthroplasty Hip, pelvis, or leg fracture Acute spinal cord injury (< 1 month) Prophylaxis Regimen: Total Risk Factor Score Risk Level Prophylaxis Regimen 0-1 Low Early ambulation 2 Moderate Order ONE of the following: *Sequential Compression Device (SCD) *Heparin 5000 units SQ BID 3-4 Higher Order ONE of the following medications: *Heparin 5000 units SQ TID *Enoxaparin/Lovenox 40 mg SQ daily (WT < 150 kg, CrCl > 30 mL/min) *Enoxaparin/Lovenox 30 mg SQ daily (WT < 150 kg, CrCl > 10-29 mL/min) *Enoxaparin/Lovenox 30 mg SQ BID (WT < 150 kg, CrCl > 30 mL/min) AND/OR *Sequential Compression Device (SCD) 5 or more Highest Order ONE of the following medications: *Heparin 5000 units SQ TID (Preferred with Epidurals) *Enoxaparin/Lovenox 40 mg SQ daily (WT < 150 kg, CrCl > 30 mL/min) *Enoxaparin/Lovenox 30 mg SQ daily (WT < 150 kg, CrCl > 10-29 mL/min) *Enoxaparin/Lovenox 30 mg SQ BID (WT < 150 kg, CrCl > 30 mL/min) AND *Sequential Compression Device (SCD) Assessment and Plan - Assessment (1) Anemia Code(s): D64.9 - Anemia, unspecified Status: Acute Plan: Patient is a 72-year-old male with a history of mild Alzheimer's, recurrent anemia, CML, Mead Feli Syndrome, afib, CAD with PPM NJ stent x2, ascites from cirrhosis esophageal varices and thyroid disease. Patient presents to the emergency department per recommendations by his oncologist Dr. Tran for blood transfusion and GI evaluation. The patient had a hemoglobin performed yesterday that was 6.8, was transfused 1 unit today, repeat hemoglobin was 6.0. The patient states his last endoscopy was performed 2 weeks ago at [facility] by Dr. Juarez, the patient does have a history of varices and hepatic steatosis. The patient denies any anticoagulation. The patient does note he is currently having dark colored stools, does have a history of previous GI bleeds with multiple endoscopies and colonoscopies. He does complain of exertional shortness of breath, generalized weakness, and occasional orthostatic hypotension symptoms. Patient denies chest pain, nausea or vomiting. Anemia likely from CML and recurrent GI bleed CML GI bleed Discussed with Dr. Dumont patient usually gets 2 units of PRBCs every week as an outpatient, goal hgb 10 hgb 7.0 on admission 2 unit PRBCs ordered by ER MD serial hgb/hct Protonix 40 mg IV BID consult to GI NPO after midnight Mild Alzheimer's reorient frequently A fib Continue patients home metoprolol 25 mg daily CAD with PPM NJ stent x2 continue metoprolol 25 mg daily hold atorvastatin Cirrhosis with recurrent ascites GI consulted continue hold spirolactone and furosemide last paracentesis 4 weeks ago, 3.5 L removed US guided paracentesis ordered Thyroid disease continue home Synthroid DVT prophylaxis SCDs avoid chemical DVT prophylaxis due to GI bleed <Dimas Acuña - Last Filed: 05/18/18 16:16> History of Present Illness Primary Care Physician: Dwayne Florian MD - Diagnosis (1) Anemia Inpatient Certification: I certify that the inpatient services were ordered in accordance with Medicare regulations governing the order. This includes certification that hospital inpatient services are reasonable and necessary and in the case of services not specified as inpatient-only under 42 CFR 419.22(n), that they are appropriately provided as inpatient services in accordance to with the 2-midnight benchmark under 43 CFR 412.3(e) [facility] - Medical History Medical History: Medical History (Last Updated 05/15/18 @ 15:25 by Nereida Andrew) Hyperlipidemia (Acute) GERD (gastroesophageal reflux disease) (Acute) Thyroid disease (Acute) Liver cirrhosis (Acute) HTN (hypertension) (Acute) - Surgical History Surgical History: Surgical History (Last Updated 05/15/18 @ 15:25 by Nereida Anderw) H/O heart artery stent (Acute) Hx of tonsillectomy (Acute) Hx of cholecystectomy (Acute) Exam Vital signs: Intake & Output 05/17/18 05/18/18 05/18/18 18:59 06:59 18:59 Intake Total 1000 / 1000 Balance 1000 / 1000 Intake: IV 1000 / 1000 Potassium Chlor 20 mEq/NACL 0. 1000 / 1000 45% Inj 1,000 ML @ 84 mls/hr IV .CONT .[id number] [facility] Rx#:[id number] Other: Date of Last Bowel Movement 05/16/18 Results - Labs CBC & Chem 7: 05/17/18 10:18 05/17/18 06:30 Labs: Laboratory Results - last 24 hr 05/16/18 09:50 MTS Gel Crossmatch See Detail Caprini VTE Risk Assessment Caprini Risk Assessment Model: Point Value = 1 Point Value = 2 Point Value = 3 Point Value = 5 Age 41-60 Minor surgery BMI > 25 kg/m2 Swollen legs Varicose veins or History of unexplained or recurrent spontaneous Oral contraceptives or hormone replacement Sepsis (< 1 month) Serious lung disease, including pneumonia (< 1 month) Abnormal pulmonary function Acute myocardial infarction Congestive heart failure (< 1 month) History of inflammatory bowel disease Medical patient at bed rest Age 61-74 Arthroscopic surgery Major open surgery (> 45 min) Laparoscopic surgery (> 45 min) Malignancy Confined to bed (> 72 hours) Immobilizing plaster cast Central venous access Age >= 75 History of VTE Family history of VTE Factor V Leiden Prothrombin [id number] Lupus anticoagulant Anticardiolipin antibodies Elevated serum homocysteine Heparin-induced thrombocytopenia Other congenital or acquired thrombophilia Stroke (< 1 month) Elective arthroplasty Hip, pelvis, or leg fracture Acute spinal cord injury (< 1 month) Prophylaxis Regimen: Total Risk Factor Score Risk Level Prophylaxis Regimen 0-1 Low Early ambulation 2 Moderate Order ONE of the following: *Sequential Compression Device (SCD) *Heparin 5000 units SQ BID 3-4 Higher Order ONE of the following medications: *Heparin 5000 units SQ TID *Enoxaparin/Lovenox 40 mg SQ daily (WT < 150 kg, CrCl > 30 mL/min) *Enoxaparin/Lovenox 30 mg SQ daily (WT < 150 kg, CrCl > 10-29 mL/min) *Enoxaparin/Lovenox 30 mg SQ BID (WT < 150 kg, CrCl > 30 mL/min) AND/OR *Sequential Compression Device (SCD) 5 or more Highest Order ONE of the following medications: *Heparin 5000 units SQ TID (Preferred with Epidurals) *Enoxaparin/Lovenox 40 mg SQ daily (WT < 150 kg, CrCl > 30 mL/min) *Enoxaparin/Lovenox 30 mg SQ daily (WT < 150 kg, CrCl > 10-29 mL/min) *Enoxaparin/Lovenox 30 mg SQ BID (WT < 150 kg, CrCl > 30 mL/min) AND *Sequential Compression Device (SCD) Assessment and Plan - Assessment (1) Anemia Code(s): D64.9 - Anemia, unspecified Status: Acute - Attending Attestation Patient examined. Assessment and plan formulated with Mel MEDINA I agree with the above.
--- NOTE | 2018-05-15 17:16 | P.CONGI ---
History of Present Illness Consult date: 05/15/18 Consult reason: GIB, anemia Chief complaint: symptomatic anemia, gi bleed, history of cml History of Present Illness: This is a 71 year old with a history of CML, liver cirrhosis, portal gastropathy , gastric and duodenal ulcers, and AVMs. Pt presented to the ER with symptomatic anemia. Pt reports black stools that have been going on for a long time. Denies any nausea, vomiting, abdominal pain, heartburn. Pt also reports some abdominal swelling, last paracentesis on april 25 with 3600 mL of fluid removed. Pt last had an EGD done on April 17 of this year --> Normal esophagus, gastric mucosa appeared to be diffusely edematous with a cobblestone appearance that is suggestive of mild to moderate portal gastropathy with antral GAVE S/P cauterization, multiple small AVMs noted in the duodenum that were cauterized. Pt has previously undergone Enteroscopy at [facility] (01/02/17)----> Small (<5 mm) and portal hypertensive gastropathy, no lesions amenable to endoscopic therapy, using gastric ulcers at sites of recent endoscopic cautery, using duodenal ulcers at sites of recent endoscopic cautery, erythema and proximal small intestine consistent with portal enteropathic; no discrete vascular ectasias or lesions amenable to endoscopic therapy, inflamed jejunal polyps, resected and retrieved, the examined portion of the ileum was normal. Jejunum polyploid granulation tissue with ectatic vessels and benign mucosa with thermal artifact and superficial ectatic vessels. No evidence of neoplasm. The exact tactic vessels are suggestive of portal hypertensive enteropathy/ polyps. Antrum of the stomach with noninflammatory mucosa with edema and focal superficial ectatic vessels, suggestive of portal hypertensive gastropathy negative for H. pylori. Prior to this, he had a capsule endoscopy (10/01/16)--- > edema, erythema, and polypoid mucosa in stomach. Patchy erythema and small intestines consistent with vascular ectasias versus portal hypertension, fresh blood in proximal to mid small intestine consistent with active bleeding, focal polypoid edema of small intestines, otherwise normal capsule endoscopy. His last colonoscopy (07/12/16)---> diverticulosis in the sigmoid, descending 4 polyps at hepatic flexure- diminutive, polyp sessile mid transverse7 mm hot snare polypectomy, 2 diminutive polyps in rectum, s/p cautery, retroflexed views revealed medium internal hemorrhoids, external hemorrhoids. <Corin Gregg - Last Filed: 05/15/18 17:32> Review of Systems Gastrointestinal: Reports black, tarry stools, Reports incontinent of stools, Reports loose stools, Denies abdominal pain, Denies nausea, Denies vomiting Comments: abdominal swelling <Corin Gregg - Last Filed: 05/15/18 17:32> PMFSH - History History Provided By: Patient - Medical History Medical History: Medical History (Last Updated 05/15/18 @ 15:25 by Nereida Andrew) Hyperlipidemia (Acute) GERD (gastroesophageal reflux disease) (Acute) Thyroid disease (Acute) Liver cirrhosis (Acute) HTN (hypertension) (Acute) - Surgical History Surgical History: Surgical History (Last Updated 05/15/18 @ 15:25 by Nereidaminda Andrew) H/O heart artery stent (Acute) Hx of tonsillectomy (Acute) Hx of cholecystectomy (Acute) - Tobacco History Second Hand Smoke Exposure: No Smoking Status: Never smoker - Alcohol History How Often Do You Have a Drink Containing Alcohol: Never - Substance Use History Substance History: No History of Abuse - Travel History Recent Travel in the [place] Within the Last 8 Weeks: No Recent Travel Out of the Country Within the Last 8 Weeks: No - Immunization History Tetanus Immunization: Unsure Hx Influenza Vaccine This Season: No <Corin Gregg - Last Filed: 05/15/18 17:32> - Medical History Medical History: Medical History (Last Updated 05/15/18 @ 15:25 by Nereidaminda Andrew) Hyperlipidemia (Acute) GERD (gastroesophageal reflux disease) (Acute) Thyroid disease (Acute) Liver cirrhosis (Acute) HTN (hypertension) (Acute) - Surgical History Surgical History: Surgical History (Last Updated 05/15/18 @ 15:25 by Collexpo Cornelia Andrew) H/O heart artery stent (Acute) Hx of tonsillectomy (Acute) Hx of cholecystectomy (Acute) <Toby Astudillo - Last Filed: 05/16/18 15:25> Medications and Allergies Active Medications: Active Medications Furosemide (Lasix) 40 mg PO DAILY MARSHA Sodium Chloride (Ns Inj) 250 mls @ 15 mls/hr IV.SIG ONCE MARSHA Stop: 05/16/18 09:39 Levothyroxine Sodium (Synthroid) 150 mcg PO DAILY [facility] Metoprolol Tartrate (Lopressor) 25 mg PO DAILY [facility] Non-Formulary Medication (Imatinib [Imatinib]) 400 mg PO DAILY [facility] Non-Formulary Medication (Temazepam [Temazepam]) 30 mg PO HS [facility] Ondansetron HCl (Zofran Inj) 4 mg IV.PUSH Q6H PRN PRN Reason: NAUSEA Pantoprazole Sodium (Protonix Inj) 40 mg IV.PUSH Q12HR [facility] Potassium Chloride (Klor-Con 10) 10 meq PO DAILY [facility] Sodium Chloride (Ns Flush) 2 ml IV.FLUSH PRN PRN PRN Reason: FLUSH AFTER USING IV ACCESS Sodium Chloride (Ns Flush) 2 ml IV.FLUSH BID [facility] Sodium Chloride (Ns Flush) 2 ml IV.FLUSH PRN PRN PRN Reason: FLUSH AFTER USING IV ACCESS Spironolactone (Aldactone) 25 mg PO BID [facility] <Corin Gregg - Last Filed: 05/15/18 17:32> Active Medications: Active Medications Citalopram Hydrobromide (Celexa) 40 mg PO BID [facility] Last Admin: 05/16/18 08:46 Dose: Not Given Furosemide (Lasix) 40 mg PO DAILY [facility] Last Admin: 05/16/18 08:46 Dose: Not Given Lactated Ringer's (Lr 1000 Ml Inj) 1,000 mls @ 30 mls/hr IV.SIG .Q24H [facility] Stop: 05/17/18 04:14 Last Infusion: 05/16/18 12:30 Dose: 30 mls/hr Sodium Chloride (Ns Inj) 500 mls @ 30 mls/hr IV.SIG .Q10H [facility] Last Admin: 05/16/18 08:45 Dose: Not Given Sodium Chloride (Ns Inj) 250 mls @ 15 mls/hr IV.SIG ONCE [facility] Stop: 05/17/18 03:39 Last Admin: 05/16/18 15:13 Dose: 15 mls/hr Levothyroxine Sodium (Synthroid) 150 mcg PO DAILY@0600 [facility] Last Admin: 05/16/18 05:56 Dose: 150 mcg Metoprolol Tartrate (Lopressor) 25 mg PO DAILY [facility] Last Admin: 05/16/18 08:46 Dose: Not Given Ondansetron HCl (Zofran Inj) 4 mg IV.PUSH Q6H PRN PRN Reason: NAUSEA Pantoprazole Sodium (Protonix) 40 mg PO BID [facility] Imatinib 400 Mg (Tablet) 1 each PO DAILY [facility] Potassium Chloride (Klor-Con 10) 10 meq PO DAILY [facility] Last Admin: 05/16/18 08:46 Dose: Not Given Sodium Chloride (Ns Flush) 2 ml IV.FLUSH BID [facility] Last Admin: 05/16/18 08:46 Dose: Not Given Sodium Chloride (Ns Flush) 2 ml IV.FLUSH PRN PRN PRN Reason: FLUSH AFTER USING IV ACCESS Spironolactone (Aldactone) 25 mg PO BID [facility] Last Admin: 05/16/18 08:45 Dose: Not Given Temazepam (Restoril) 30 mg PO HS [facility] Last Admin: 05/15/18 20:34 Dose: 30 mg <Toby Astudillo - Last Filed: 05/16/18 15:25> Allergies Allergy/AdvReac Type Severity Reaction Status Date / Time benazepril Allergy Severe ANGIOEDEMA Verified 05/15/18 15:22 captopril Allergy Severe ANGIOEDEMA Verified 05/15/18 15:22 enalaprilat Allergy Severe ANGIOEDEMA Verified 05/15/18 15:22 fosinopril Allergy Severe ANGIOEDEMA Verified 05/15/18 15:22 lisinopril Allergy Severe ANGIOEDEMA Verified 05/15/18 15:22 meperidine Allergy Severe Anaphylaxis Verified 05/15/18 15:22 quinapril Allergy Severe ANGIOEDEMA Verified 05/15/18 15:22 amiodarone AdvReac Intermediate Swelling Verified 05/15/18 15:22 DASATINIB AdvReac Unknown Edema Uncoded 05/11/18 13:42 Home Medications Medication Instructions Recorded Confirmed Type ascorbic acid (vitamin C) 500 mg PO DAILY 05/11/18 05/11/18 History cholecalciferol (vitamin D3) 2,000 unit PO DAILY 05/11/18 05/11/18 History citalopram 40 mg PO BID 05/11/18 05/11/18 History diphenoxylate-atropine [Lomotil] 1 tab PO Q6-8H PRN 05/11/18 05/11/18 History furosemide 40 mg PO DAILY 05/11/18 05/11/18 History imatinib 400 mg PO DAILY 05/11/18 05/15/18 History levothyroxine 150 mcg PO DAILY 05/11/18 05/15/18 History metoprolol tartrate 25 mg PO DAILY 05/11/18 05/15/18 History pantoprazole 40 mg PO BID 05/11/18 05/15/18 History potassium chloride 10 meq PO DAILY 05/11/18 05/15/18 History simvastatin 5 mg PO QPM 05/11/18 05/15/18 History spironolactone 25 mg PO BID 05/11/18 05/15/18 History temazepam 30 mg PO HS 05/11/18 05/15/18 History Exam Vital signs: Vital Signs 05/15/18 15:13 05/15/18 15:38 05/15/18 15:40 Temperature 98.9 F Pulse Rate 77 80 Respiratory Rate 18 18 Blood Pressure 140/65 154/65 H Pulse Oximetry 100 100 100 Intake & Output 05/14/18 05/15/18 05/15/18 18:59 06:59 18:59 Weight 86.636 kg - Constitutional no acute distress - Routine HEENT Exam Head: Present: normocephalic, atraumatic - Routine Respiratory Exam Absent: accessory muscle use - Routine Abdominal Exam Present: soft, normoactive bowel sounds, distended. Absent: tenderness - Routine Skin Exam Present: dry, warm - Routine Neurological Exam Present: alert, oriented X3 <Corin Gregg - Last Filed: 05/15/18 17:32> Vital signs: Vital Signs 05/15/18 15:38 05/15/18 15:40 05/15/18 17:28 Temperature Pulse Rate 80 72 Respiratory Rate 18 19 Blood Pressure 154/65 H 124/53 L Pulse Oximetry 100 100 100 05/15/18 18:00 05/15/18 20:00 05/15/18 20:20 Temperature 98.0 F 98.5 F 98.5 F Pulse Rate 81 86 86 Respiratory Rate 17 18 Blood Pressure 142/64 H 138/63 138/63 Pulse Oximetry 100 100 05/15/18 20:36 05/15/18 20:44 05/15/18 23:27 Temperature 98.7 F 97.7 F Pulse Rate 88 83 76 Respiratory Rate 18 18 Blood Pressure 135/61 Pulse Oximetry 05/15/18 23:32 05/15/18 23:50 05/15/18 23:59 Temperature 97.7 F 98.1 F Pulse Rate 76 81 75 Respiratory Rate 18 17 Blood Pressure 136/57 L Pulse Oximetry 05/16/18 00:00 05/16/18 01:35 05/16/18 02:28 Temperature 98.1 F 98.7 F Pulse Rate 81 86 Respiratory Rate 17 18 18 Blood Pressure 115/58 L 126/63 Pulse Oximetry 100 100 05/16/18 04:00 05/16/18 04:08 05/16/18 08:00 Temperature 98.7 F 97.7 F Pulse Rate 86 85 62 Respiratory Rate 18 20 Blood Pressure 126/63 127/62 Pulse Oximetry 100 99 05/16/18 13:12 05/16/18 14:00 05/16/18 14:17 Temperature 98.3 F Pulse Rate 68 72 82 Respiratory Rate 18 18 18 Blood Pressure 117/69 123/61 119/66 Pulse Oximetry 100 100 100 05/16/18 15:00 05/16/18 15:01 Temperature 99.2 F 99.2 F Pulse Rate 76 76 Respiratory Rate 18 18 Blood Pressure 127/60 127/60 Pulse Oximetry 18 L 99 Intake & Output 05/15/18 05/16/18 05/16/18 18:59 06:59 18:59 Intake Total 1200 / 1200 700 / 700 Output Total 850 / 850 Balance 350 / 350 700 / 700 Weight 86.63 kg Intake: IV 700 / 700 LR 1000 mL Inj 1,000 ML @ 30 700 / 700 mls/hr IV.SIG .Q24H [facility] Rx#: [id number] Other 400 / 400 Rbc As-3 Leukoreduced Unit 400 / 400 [id number] Intake (Blood Product) Amt 800 / 800 0 / 0 Rbc As-3 Leukoreduced Unit 400 / 400 [id number] Rbc As-3 Leukoreduced Unit 0 / 0 [id number] Rbc As-3 Leukoreduced Unit 400 / 400 [id number] Output: Urine 850 / 850 Other: # Voids 3 Date of Last Bowel Movement 05/15/18 05/15/18 Weight On Admission 86.63 kg <Toby Astudillo - Last Filed: 05/16/18 15:25> Results - Labs CBC & Chem 7: 05/15/18 15:45 05/15/18 15:45 Labs: Laboratory Results - last 24 hr 05/15/18 05/15/18 05/15/18 15:45 15:45 15:45 WBC 2.9 L RBC 2.17 L Hgb 7.0 L Hct 20.8 L* MCV 95.9 MCH 32.4 MCHC 33.7 RDW 16.4 Plt Count 91 L MPV 8.3 Prelim Diff (Auto) Slide review pending Neut % (Auto) 63.8 Lymph % (Auto) 20.7 Collin % (Auto) 11.6 H Eos % (Auto) 3.4 Baso % (Auto) 0.5 Neut # (Auto) 1.8 Lymph # (Auto) 0.6 L Collin # (Auto) 0.3 Eos # (Auto) 0.1 Baso # (Auto) 0.0 WBC Differential . Diff Scan Auto diff confirmed Differential Comment . PT 12.6 H INR 1.2 APTT 33.3 H Sodium 140 Potassium 3.8 Chloride 108 H Carbon Dioxide 21.1 Anion Gap 11 BUN 32 H Creatinine 2.20 H Estimated GFR 30 L Random Glucose 109 H Calcium 7.4 L* Prot Corrected Calcium 8.5 Total Bilirubin 1.0 AST 40 H ALT 42 Alkaline Phosphatase 176 H Total Protein 5.1 L Albumin 2.2 L <Corin Gregg - Last Filed: 05/15/18 17:32> - Labs CBC & Chem 7: 05/16/18 06:39 05/15/18 15:45 Labs: Laboratory Results - last 24 hr 05/15/18 05/15/18 05/15/18 15:45 15:45 15:45 WBC 2.9 L RBC 2.17 L Hgb 7.0 L Hct 20.8 L* MCV 95.9 MCH 32.4 MCHC 33.7 RDW 16.4 Plt Count 91 L MPV 8.3 Prelim Diff (Auto) Slide review pending Neut % (Auto) 63.8 Lymph % (Auto) 20.7 Collin % (Auto) 11.6 H Eos % (Auto) 3.4 Baso % (Auto) 0.5 Neut # (Auto) 1.8 Lymph # (Auto) 0.6 L Collin # (Auto) 0.3 Eos # (Auto) 0.1 Baso # (Auto) 0.0 WBC Differential . Diff Scan Auto diff confirmed Differential Comment . PT 12.6 H INR 1.2 APTT 33.3 H Sodium 140 Potassium 3.8 Chloride 108 H Carbon Dioxide 21.1 Anion Gap 11 BUN 32 H Creatinine 2.20 H Estimated GFR 30 L Random Glucose 109 H Calcium 7.4 L* Prot Corrected Calcium 8.5 Total Bilirubin 1.0 AST 40 H ALT 42 Alkaline Phosphatase 176 H Total Protein 5.1 L Albumin 2.2 L Blood Type Antibody Screen MTS Gel Crossmatch Bld Prod Order Comment 05/15/18 05/16/18 05/16/18 15:45 06:39 09:50 WBC RBC Hgb 8.8 L Hct 25.4 L MCV MCH MCHC RDW Plt Count MPV Prelim Diff (Auto) Neut % (Auto) Lymph % (Auto) Collin % (Auto) Eos % (Auto) Baso % (Auto) Neut # (Auto) Lymph # (Auto) Collin # (Auto) Eos # (Auto) Baso # (Auto) WBC Differential Diff Scan Differential Comment PT INR APTT Sodium Potassium Chloride Carbon Dioxide Anion Gap BUN Creatinine Estimated GFR Random Glucose Calcium Prot Corrected Calcium Total Bilirubin AST ALT Alkaline Phosphatase Total Protein Albumin Blood Type O Positive Antibody Screen Negative MTS Gel Crossmatch See Detail See Detail Bld Prod Order Comment - Imaging Impressions Paracentesis Ultrasound 05/16/18 00:00 CONCLUSION: 1. Uncomplicated paracentesis <Toby Astudillo - Last Filed: 05/16/18 15:25> Assessment and Plan - Plan Assessment: - Anemia with reports of black, tarry stools Recurrent GIB- EGD done on April 17 of this year --> Normal esophagus, gastric mucosa appeared to be diffusely edematous with a cobblestone appearance that is suggestive of mild to moderate portal gastropathy with antral GAVE S/P cauterization, multiple small AVMs noted in the duodenum that were cauterized. Enteroscopy at [facility] (01/02/17)----> Small (<5 mm) and portal hypertensive gastropathy, no lesions amenable to endoscopic therapy, using gastric ulcers at sites of recent endoscopic cautery , using duodenal ulcers at sites of recent endoscopic cautery, erythema and proximal small intestine consistent with portal enteropathic; no discrete vascular ectasias or lesions amenable to endoscopic therapy, inflamed jejunal polyps, resected and retrieved, the examined portion of the ileum was normal. Jejunum polyploid granulation tissue with ectatic vessels and benign mucosa with thermal artifact and superficial ectatic vessels. No evidence of neoplasm. The exact tactic vessels are suggestive of portal hypertensive enteropathy/polyps. Antrum of the stomach with noninflammatory mucosa with edema and focal superficial ectatic vessels, suggestive of portal hypertensive gastropathy negative for H. pylori. Capsule endoscopy (10/01/16)---> edema, erythema, and polypoid mucosa in stomach. Patchy erythema and small intestines consistent with vascular ectasias versus portal hypertension, fresh blood in proximal to mid small intestine consistent with active bleeding, focal polypoid edema of small intestines, otherwise normal capsule endoscopy. Colonoscopy (07/12/16)---> diverticulosis in the sigmoid, descending 4 polyps at hepatic flexure- diminutive, polyp sessile mid transverse7 mm hot snare polypectomy, 2 diminutive polyps in rectum, s/p cautery, retroflexed views revealed medium internal hemorrhoids, external hemorrhoids. - Cirrhosis secondary to fatty liver Thrombocytopenia and hypoalbuminemia Pt is not a candidate for liver transplant due to current CML. being treated with Gleevac, oncologist is Dr. Tran Plan: Enteroscopy tomorrow Obtain consent NPO after MN Paracentesis Monitor H/H 2 U of PRBCs ordered Protonix Monitor labs Avoid hepatotoxins Further recommendations to follow Pt has been seen and examined by myself and Dr. Astudillo and this note is written on his behalf <Corin Gregg - Last Filed: 05/15/18 17:32> - Plan Seen and examined with SERVICE DESK ASSOCIATE, multiple admissions for gib. Enteroscopy with abltion planned for tomorrow. IV protonix and blood transfusions recommended. Paracentesis by IR. Discussed with Dr Acuña. Thank you The exam, history, and the medical decision-making described in the above note were completed with the assistance of the mid-level provider. I reviewed and agree with the findings presented. I attest that I had a [id number] encounter with the patient on the same day, and personally performed and documented my assessment and findings in the medical record. <Toby Astudillo - Last Filed: 05/16/18 15:25>
[2018-05-15] MEDS ORDERED: Sodium Chlor 0.9% Inj 250 ML IV.SIG SCH (18:00)
[2018-05-15] MEDS: Sodium Chlor 0.9% Inj 250 ML IV.SIG SCH ×2 (18:23→20:02)
[2018-05-15] MEDS: Pantoprazole Inj 40 MG Vial IV.PUSH SCH ×2 (18:47→20:33)
[2018-05-15] MEDS: Spironolactone 25 MG Tablet PO SCH (20:33)
[2018-05-15] MEDS: Temazepam 15 MG Capsule PO SCH (20:34)
[2018-05-15] MEDS ORDERED: Non-Formulary Drug (Temazepam [Temazepam] 30 MG) PO SCH (21:00)
[2018-05-16] MEDS ORDERED: Metoprolol Tartrate 25 MG Tablet PO ONE (04:10)
[2018-05-16] MEDS ORDERED: Chlorhexidine Gluconate 2% 1 Pack (2 Cloths) TOPICAL ONE (04:10)
[2018-05-16] MEDS ORDERED: Sodium Chlor 0.9% Inj 500 ML IV.SIG SCH (05:00)
[2018-05-16] MEDS: Levothyroxine 150 MCG Tablet PO SCH (05:56)
[2018-05-16 07:30] LABS: Hematocrit 25.4 % (39.0-51.0); Hemoglobin 8.8 gm/dL (13.0-17.0)
[2018-05-16] MEDS: Spironolactone 25 MG Tablet PO SCH ×2 (08:45→21:11)
[2018-05-16] MEDS: Metoprolol Tartrate 25 MG Tablet PO SCH (08:46)
[2018-05-16] MEDS: Furosemide 40 MG Tablet PO SCH (08:46)
[2018-05-16] MEDS: Pantoprazole Inj 40 MG Vial IV.PUSH SCH (08:46)
[2018-05-16] MEDS ORDERED: IMATINIB 400 MG PO SCH (09:00)
--- NOTE | 2018-05-16 09:53 | ECG ---
Date Performed: 05/15/2018 Time Performed: 21:22:29 PTAGE: 72 years EKG: ELECTRONIC ATRIAL PACEMAKER NONSPECIFIC ST & T-WAVE ABNORMALITY ABNORMAL RHYTHM ECG Since t he PREVIOUS TRACING , no significant change noted PREVIOUS TRACIN10/25/2017 09.49 DOCTOR: Juan Gonsalez Interpretating Date/Time 05/16/2018 09:50:43
[2018-05-16] MEDS ORDERED: Sodium Chlor 0.9% Inj 250 ML IV.SIG SCH (11:00)
--- NOTE | 2018-05-16 14:19 | P.PNIM ---
Subjective Interval history: No new complaints. Physical Exam Vital signs: 05/16/18 14:17 Temperature Pulse Rate 82 Respiratory Rate 18 Blood Pressure 119/66 Pulse Oximetry 100 Narrative: GENERAL: This is a well-nourished, well-developed patient, in no apparent distress. CARDIOVASCULAR: Regular rate and rhythm without murmurs, gallops, or rubs. RESPIRATORY: Clear to auscultation. Breath sounds equal bilaterally. No wheezes , rales, or rhonchi. GASTROINTESTINAL: Abdomen soft, non-tender, nondistended. Normal active bowel sounds MUSCULOSKELETAL: Extremities without clubbing, cyanosis, or edema. NEURO: Alert & Oriented x4 to person, place, time, situation. Moves all ext x4 Results - Labs CBC & Chem 7: 05/17/18 10:18 05/17/18 06:30 Assessment and Plan - Assessment (1) Anemia Code(s): D64.9 - Anemia, unspecified Status: Acute Plan: Patient is a 72-year-old male with a history of mild Alzheimer's, recurrent anemia, CML, [place] Feli Syndrome, afib, CAD with PPM [place] stent x2, ascites from cirrhosis esophageal varices and thyroid disease. Patient presents to the emergency department per recommendations by his oncologist Dr. Tran for blood transfusion and GI evaluation. The patient had a hemoglobin performed yesterday that was 6.8, was transfused 1 unit today, repeat hemoglobin was 6.0. The patient states his last endoscopy was performed 2 weeks ago at [facility] by Dr. Juarez, the patient does have a history of varices and hepatic steatosis. The patient denies any anticoagulation. The patient does note he is currently having dark colored stools, does have a history of previous GI bleeds with multiple endoscopies and colonoscopies. He does complain of exertional shortness of breath, generalized weakness, and occasional orthostatic hypotension symptoms. Patient denies chest pain, nausea or vomiting. Anemia likely from CML and recurrent GI bleed CML GI bleed Discussed with Dr. Dumont (05/15) patient usually gets 2 units of PRBCs every week as an outpatient, goal hgb 10 hgb 7.0 on admission - Pt received [address] Tran' office (05/15) - Pt received 2 units PRBCs at [place] (05/15) - Hg 8.8 (05/16) - Case d/w Dr. Tran (05/16). Will transfuse additional 1 units PRBCs - Possible discharge following transfusion - protonix 40mg BID - Pt underwent Enteroscopy (05/16) with Dr. Astudillo. - multiple AVMs in stomach & duodenum were cauterized - Gaves disease - esophageal varices - portal gastropathy - esophagitis - Gave Disease (gastric antral vacular ectasia) - case d/w Dr. Astudillo. He recommended possible TIPS. - pt c/o episode of tarry stool, will hold discharge for today - obtain CBC in AM AVM identified and treated Mild Alzheimer's reorient frequently A fib Continue patients home metoprolol 25 mg daily CAD with PPM [place] stent x2 continue metoprolol 25 mg daily hold atorvastatin Cirrhosis with recurrent ascites GI consulted continue hold spirolactone and furosemide last paracentesis 4 weeks ago, 3.5 L removed - US guided paracentesis (05/16) 4.5L removed Thyroid disease continue home Synthroid DVT prophylaxis SCDs avoid chemical DVT prophylaxis due to GI bleed
--- NOTE | 2018-05-16 14:24 | US ---
EXAM DATE: 05/16/2018 2:13 PM EDT AGE/SEX: 72 years / Male INDICATIONS: Ascites. CLINICAL DATA: This is the patient's subsequent encounter. Patient reports that signs and symptoms h ave been present for 1 month and indicates a pain score of 4/10. MEDICAL/SURGICAL HISTORY: . Hypertension. Diabetes. [place]. Sleep apnea. Leukemia. Blood transfusio n. Anemia. Renal disease. . Coronary artery stent. Cholecystectomy. Pacemaker. Paracentesis. Sinus s urgery. COMPARISON: [facility] [place], [place] PARACENTESIS ABD W/IMAGE, 04/25/2018. . FLUID: Total volume of 4,600 cc of clear, yellow fluid was removed. Fluid was discarded. Paracentesis was th erapeutic only. . . TECHNIQUE: Ultrasound guidance for abdominal paracentesis. Paracentesis. The risks, benefits, and alternatives to ultrasound guided paracentesis were explained to the patient in detail including the risk of bleeding and infection. Written and verbal informed consent was obt ained. With the patient on the ultrasound table, ultrasound imaging was used to select the most appropriate approach for paracentesis. Overlying skin was prepped and draped in the usual sterile fashion and wi th a local anesthetic, a dermatotomy was made with an 11 blade scalpel. A 6 Vincentian Ivw-H-yklruztn ca theter was introduced into the peritoneal cavity and fluid was collected. Post procedure scanning reveals no hematoma or other complication. The patient tolerated the procedu re well and left the ultrasound suite in stable condition. FINDINGS: Adequate fluid is present for paracentesis CONCLUSION: 1. Uncomplicated paracentesis Electronically signed by: Juan Murray MD 05/16/2018 2:22 PM EDT
--- NOTE | 2018-05-16 15:26 | P.DS ---
Date of admission: 05/15/18 16:41 Primary care physician: Dwayne Florian MD Attending physician on discharge: Dimas Acuña Anticipated date of discharge: 05/16/18 Brief History from admission: Patient is a 72-year-old male with a history of mild Alzheimer's, recurrent anemia, CML, Hawthorne Feli Syndrome, afib with PPM TN stent x2, ascites from cirrhosis esophageal varices and thyroid disease. Patient presents to the emergency department per recommendations by his oncologist Dr. Tran for blood transfusion and GI evaluation. The patient had a hemoglobin performed yesterday that was 6.8, was transfused 1 unit today, repeat hemoglobin was 6.0. The patient states his last endoscopy was performed 2 weeks ago at [facility] by Dr. Juarez, the patient does have a history of varices and hepatic steatosis. The patient denies any anticoagulation. The patient does note he is currently having dark colored stools, does have a history of previous GI bleeds with multiple endoscopies and colonoscopies. He does complain of exertional shortness of breath, generalized weakness, and occasional orthostatic hypotension symptoms. Patient denies chest pain, nausea or vomiting. hgb in the ER on admission 7.0 Past Medical History mild Alzheimer's ,severe recurrent anemia, CML, Hawthorne Feli Syndrome, afib with PPM TN stent x 2 ascites from cirrhosis esophageal varices thyroid disease Past Surgical History balloon for varices,gallbladder,cardiac stent times 2,rt chest infusaport, pacemaker,medronic,sinus surgery urethral strictures Social History denies ETOH use or tobacco use DS: Diagnosis - Discharge Diagnosis (1) Anemia Status: Acute DS: Summary Hospital Course: Patient is a 72-year-old male with a history of mild Alzheimer's, recurrent anemia, CML, Hawthorne Feli Syndrome, afib, CAD with PPM TN stent x2, ascites from cirrhosis esophageal varices and thyroid disease. Patient presents to the emergency department per recommendations by his oncologist Dr. Tran for blood transfusion and GI evaluation. The patient had a hemoglobin performed yesterday that was 6.8, was transfused 1 unit today, repeat hemoglobin was 6.0. The patient states his last endoscopy was performed 2 weeks ago at [facility] by Dr. Juarez, the patient does have a history of varices and hepatic steatosis. The patient denies any anticoagulation. The patient does note he is currently having dark colored stools, does have a history of previous GI bleeds with multiple endoscopies and colonoscopies. He does complain of exertional shortness of breath, generalized weakness, and occasional orthostatic hypotension symptoms. Patient denies chest pain, nausea or vomiting. Anemia likely from CML and recurrent GI bleed CML GI bleed comanagement with Dr. Astudillo, Dr. Tran and Dr. Avila Discussed with Dr. Dumont (05/15) patient usually gets 2 units of PRBCs every week as an outpatient, goal hgb 10 hgb 7.0 on admission - Pt received [address] Tran' office (05/15) - Pt received 2 units PRBCs at [facility] (05/15) - Hg 8.8 (05/16) - Case d/w Dr. Tran (05/16). Will transfuse additional 1 units PRBCs - (05/17) Hgb 10.5 - Protonix 40mg BID - Pt underwent Enteroscopy (05/16) with Dr. Astudillo. - multiple AVMs in stomach & duodenum were cauterized - Gaves disease - esophageal varices - portal gastropathy - esophagitis - Gave Disease (gastric antral vacular ectasia) - case d/w Dr. Astudillo. He recommended possible TIPS. - Dr. Acuña discussed case with Dr. Tran and Dr. Avila (IR). Dr. Avila discussed TIPS procedure with patient and his 05/16. - Patient plans to return to hospital to have TIPS as an outpatient Mild Alzheimer's reorient frequently A fib Continue patients home metoprolol 25 mg daily CAD with PPM TN stent x2 continue metoprolol 25 mg daily hold atorvastatin Cirrhosis with recurrent ascites GI consulted continue hold spirolactone and furosemide last paracentesis 4 weeks ago, 3.5 L removed - US guided paracentesis (05/16) 4.5L removed Thyroid disease continue home Synthroid DVT prophylaxis SCDs avoid chemical DVT prophylaxis due to GI bleed - Time Spent with Patient Total time spent providing and/or coordinating discharge services: Greater than 30 minutes - Quality: VTE Deep Vein Thrombosis/Pulmonary Embolism Present on Admission: No Exam Vital signs: Vital Signs 05/15/18 15:38 05/15/18 15:40 05/15/18 17:28 Temperature Pulse Rate 80 72 Respiratory Rate 18 19 Blood Pressure 154/65 H 124/53 L Pulse Oximetry 100 100 100 05/15/18 18:00 05/15/18 20:00 05/15/18 20:20 Temperature 98.0 F 98.5 F 98.5 F Pulse Rate 81 86 86 Respiratory Rate 17 18 Blood Pressure 142/64 H 138/63 138/63 Pulse Oximetry 100 100 05/15/18 20:36 05/15/18 20:44 05/15/18 23:27 Temperature 98.7 F 97.7 F Pulse Rate 88 83 76 Respiratory Rate 18 18 Blood Pressure 135/61 Pulse Oximetry 05/15/18 23:32 05/15/18 23:50 05/15/18 23:59 Temperature 97.7 F 98.1 F Pulse Rate 76 81 75 Respiratory Rate 18 17 Blood Pressure 136/57 L Pulse Oximetry 05/16/18 00:00 05/16/18 01:35 05/16/18 02:28 Temperature 98.1 F 98.7 F Pulse Rate 81 86 Respiratory Rate 17 18 18 Blood Pressure 115/58 L 126/63 Pulse Oximetry 100 100 05/16/18 04:00 05/16/18 04:08 05/16/18 08:00 Temperature 98.7 F 97.7 F Pulse Rate 86 85 62 Respiratory Rate 18 20 Blood Pressure 126/63 127/62 Pulse Oximetry 100 99 05/16/18 13:12 05/16/18 14:00 05/16/18 14:17 Temperature 98.3 F Pulse Rate 68 72 82 Respiratory Rate 18 18 18 Blood Pressure 117/69 123/61 119/66 Pulse Oximetry 100 100 100 05/16/18 15:00 05/16/18 15:01 Temperature 99.2 F 99.2 F Pulse Rate 76 76 Respiratory Rate 18 18 Blood Pressure 127/60 127/60 Pulse Oximetry 18 L 99 Intake & Output 05/15/18 05/16/18 05/16/18 18:59 06:59 18:59 Intake Total 1200 / 1200 700 / 700 Output Total 850 / 850 Balance 350 / 350 700 / 700 Weight 86.63 kg Intake: IV 700 / 700 LR 1000 mL Inj 1,000 ML @ 30 700 / 700 mls/hr IV.SIG .Q24H [facility] Rx#: [id number] Other 400 / 400 Rbc As-3 Leukoreduced Unit 400 / 400 [id number] Intake (Blood Product) Amt 800 / 800 0 / 0 Rbc As-3 Leukoreduced Unit 400 / 400 [id number] Rbc As-3 Leukoreduced Unit 0 / 0 [id number] Rbc As-3 Leukoreduced Unit 400 / 400 [id number] Output: Urine 850 / 850 Other: # Voids 3 Date of Last Bowel Movement 05/15/18 05/15/18 Weight On Admission 86.63 kg Narrative: GENERAL: This is a well-nourished, well-developed patient, in no apparent distress. CARDIOVASCULAR: Regular rate and rhythm RESPIRATORY: Clear to auscultation. Breath sounds equal bilaterally. GASTROINTESTINAL: Abdomen soft, non-tender, nondistended. Normal active bowel sounds MUSCULOSKELETAL: Extremities without clubbing, cyanosis, or edema. NEURO: Alert & Oriented x4 to person, place, time, situation. Moves all ext x4 Results Procedures completed during hospitalization: - Pt underwent Enteroscopy (05/16) with Dr. Astudillo. - multiple AVMs in stomach & duodenum were cauterized - Gaves disease - esophageal varices - portal gastropathy - esophagitis - Gave Disease (gastric antral vacular ectasia) - US guided paracentesis (05/16) 4.5L removed Labs on day of discharge: Labs from last 24 hours 05/16/18 05/16/18 05/15/18 09:50 06:39 15:45 WBC RBC Hgb 8.8 L Hct 25.4 L MCV MCH MCHC RDW Plt Count MPV Prelim Diff (Auto) Neut % (Auto) Lymph % (Auto) [place] % (Auto) Eos % (Auto) Baso % (Auto) Neut # (Auto) Lymph # (Auto) [place] # (Auto) Eos # (Auto) Baso # (Auto) WBC Differential Diff Scan Differential Comment PT INR APTT Sodium Potassium Chloride Carbon Dioxide Anion Gap BUN Creatinine Estimated GFR Random Glucose Calcium Prot Corrected Calcium Total Bilirubin AST ALT Alkaline Phosphatase Total Protein Albumin Blood Type O Positive Antibody Screen Negative MTS Gel Crossmatch See Detail See Detail Bld Prod Order Comment 05/15/18 05/15/18 05/15/18 15:45 15:45 15:45 WBC 2.9 L RBC 2.17 L Hgb 7.0 L Hct 20.8 L* MCV 95.9 MCH 32.4 MCHC 33.7 RDW 16.4 Plt Count 91 L MPV 8.3 Prelim Diff (Auto) Slide review pending Neut % (Auto) 63.8 Lymph % (Auto) 20.7 [place] % (Auto) 11.6 H Eos % (Auto) 3.4 Baso % (Auto) 0.5 Neut # (Auto) 1.8 Lymph # (Auto) 0.6 L [place] # (Auto) 0.3 Eos # (Auto) 0.1 Baso # (Auto) 0.0 WBC Differential . Diff Scan Auto diff confirmed Differential Comment . PT 12.6 H INR 1.2 APTT 33.3 H Sodium 140 Potassium 3.8 Chloride 108 H Carbon Dioxide 21.1 Anion Gap 11 BUN 32 H Creatinine 2.20 H Estimated GFR 30 L Random Glucose 109 H Calcium 7.4 L* Prot Corrected Calcium 8.5 Total Bilirubin 1.0 AST 40 H ALT 42 Alkaline Phosphatase 176 H Total Protein 5.1 L Albumin 2.2 L Blood Type Antibody Screen MTS Gel Crossmatch Bld Prod Order Comment - Impressions ITS Impressions Paracentesis Ultrasound 05/16/18 00:00 CONCLUSION: 1. Uncomplicated paracentesis Discharge Plan - Discharge Disposition Patient Disposition: 01 Discharge Home - Discharge Condition Condition: Stable - Discharge Order Discharge Orders: Discharge Order (Routine); Ordered 05/17/18 Ordered By: Mel Crawford - Discharge Details Anticipated Discharge Date: 05/17/18 - Physicians Team Primary Care Provider: Dwayne Florian Attending Provider: Dimas Acuña Other Providers: Toby Astudillo MD ; Brenna Estrada MD
[2018-05-16] MEDS: KCL 20 mEq/NACL 0.45% Inj 1,000 ML IV.CONT SCH (19:42)
[2018-05-16 20:56] LABS: Hematocrit 30.9 % (39.0-51.0); Hemoglobin 10.5 gm/dL (13.0-17.0)
--- NOTE | 2018-05-16 21:00 | XR ---
EXAM DATE: 05/16/2018 8:25 PM EDT AGE/SEX: 72 years / Male INDICATIONS: Cough. CLINICAL DATA: This is the patient's subsequent encounter. Patient reports that signs and symptoms h ave been present for 1 day and indicates a pain score of 0/10. MEDICAL/SURGICAL HISTORY: . Hypertension. Diabetes. [place]. Sleep apnea. Leukemia. Blood transfusio n. Anemia. Renal disease. . Coronary artery stent. Cholecystectomy. Pacemaker. Paracentesis. Sinus surgery. COMPARISON: POI, CT CHEST W/O CONTRAST, 05/06/2018. . FINDINGS: There is a CT compatible [id number] in place from the right internal jugular approach. There is a pacing device seen in the left chest. The heart size is upper limits of normal. There is increased de nsity at the right lateral base likely related to a right effusion. Is also suspected focal parenchym al density at the medial right base. There is minimal blunting of the left costophrenic angle. The le ft lung is otherwise clear. CONCLUSION: Suspected right pleural effusion which is stable. Increased density at the medial right base likely related to some degree of consolidation or atelecta sis. Suspected mild left pleural effusion. These findings were all present on the prior CT examination from 05/06/2018. Electronically signed by: Russell Caldera MD 05/16/2018 8:58 PM EDT
[2018-05-16] MEDS: Temazepam 15 MG Capsule PO SCH (21:10)
--- NOTE | 2018-05-16 21:51 | MB ---
cc: Dallas Tran MD DATE: 05/16/2018 REASON FOR CONSULTATION: The patient is well known to me with multiple medical problems, which include chronic myelogenous leukemia, steatohepatitis, portal hypertension, recurrent and acute GI bleeding, and renal failure. PATIENT PROFILE: The patient is a 72-year-old male. I have cared for him for in excess of 20 years. He is . He had 2 children. One is . 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 He does not smoke and does not drink. HISTORY OF PRESENT ILLNESS: Pa Quintero is a 72-year-old male who has chronic myelogenous leukemia which is well controlled with Gleevec. He has portal hypertension with ascites from steatohepatitis. He has had a liver biopsy in the past. He has chronic GI bleeding. This has been going on for several years. I have sent him to the [facility]. He has seen multiple gastroenterologists locally. He has had cauterization of varices on multiple occasions. Pa was in my office a day ago. He was having increased bleeding. His hemoglobin was approximately 7. It was apparent that I could not keep up with the transfusions. I told Pa that he needed hospitalization for a transfusion, GI consultation and for a paracentesis as he had increasing symptomatic ascites. He has been undergoing paracenteses approximately every 3 weeks. He underwent an upper endoscopy and had cauterization of bleeding vessels. From a number of discussions, it appears that the cauterization will be of limited success and the bleeding will not be able to be stopped due to the extent and consequences of the portal hypertension and varices. He also underwent a paracentesis on 05/16/2018 with removal of 4600 mL of fluid. Today, when I am visiting him, he continues to bleed. He has been seen by interventional radiology and specifically Dr. Avila. He is being considered for a TIPS procedure. Pa is undecided and would like my thoughts. PAST SURGICAL HISTORY: 1. Pacemaker placement 2. Coronary stent placement in 2007. 3. Tonsillectomy. 4. Cholecystectomy. PAST MEDICAL HISTORY: 1. Chronic myelogenous leukemia, well managed with Gleevec. 2. Steatohepatitis with portal hypertension and varices and GI bleeding present for in excess of 2 years with multiple cauterizations and banding, which have not been successful. 3. A 15 mm nodule in the right lung. Workup has been limited due to the fact that he has chronic GI bleeding and is not stable. 4. Ascites and multiple paracenteses. 5. Osteoarthritis. MEDICATIONS: 1. Celexa. 2. Lasix. 3. Synthroid. 4. Lopressor. 5. Protonix. 6. Imatinib 400 mg daily. 7. Potassium. ALLERGIES: 1. AMIODARONE. 2. DEMEROL. REVIEW OF SYSTEMS: No change in vision or hearing. No chest pain, progressive shortness of breath or orthopnea and PND. He had a recent fall from his bed and required sutures. Abdominal fullness and discomfort requiring paracentesis. He has had progressive muscle weakness with muscle atrophy. He does not have any focal weakness. He has had no psychiatric problems. He continues to have black stools and it is rare that he is not bleeding. LABORATORY TESTS: On 05/15/2018, BUN 32, creatinine 2.2, alkaline phosphatase 176, ALT 42, AST 40. PT 12.6, PTT 33. Hemoglobin 7, white count 2900, platelets 91,000. Today, hemoglobin is 8.8 after either 2 or 3 units. PHYSICAL EXAMINATION: GENERAL: Reveals a chronically and acutely ill-appearing gentleman. He is pale, weak. VITAL SIGNS: Blood pressure 125/60, pulse 80, respiratory rate 18. afebrile HEENT: Head is normocephalic. Sclerae and conjunctivae are normal. Oropharynx unremarkable. NECK: No adenopathy. HEART: Regular rhythm. LUNGS: Clear. ABDOMEN: Distended. I believe there is still a small amount of ascites. liver 3-4 cm below right costal margin. spleen palpable. EXTREMITIES: +1 edema. MUSCULOSKELETAL: Muscle wasting. NEUROLOGIC: No focal weakness. Cognition and affect normal. SKIN: Unremarkable except for the bruise over the scalp where he fell and required sutures. ASSESSMENT AND PLAN: The patient is a 72-year-old male who has progressive chronic gastrointestinal bleeding, which has now become acute and difficult to manage. He has recurrent refractory ascites. All of these are felt to be a result of his portal hypertension. At this point, I am not sure that I can sustain his life as an outpatient as he is requiring weekly transfusions and even this is not working and paracenteses every 2 or 3 weeks. He has other significant comorbidities such as renal failure, coronary artery disease and chronic myelogenous leukemia. These appear to be manageable. RECOMMENDATIONS: The patient has spoken with Dr. Avila. He is a candidate for a TIPS procedure. The brick machine operator and the interventional radiologist feel that the TIPS procedure could potentially result in control of his bleeding and ascites. At the present time, it appears very difficult for him to sustain life with the chronic bleeding and ascites. It appears that the risk of undergoing a TIPS procedure would be worth undertaking. I discussed this with the patient and . They will proceed with the TIPS procedure with Dr. Avila. I have spoken with Dr. Acuña his hospitalist several times this evening and he will continue to transfuse the patient as needed to try to arrive at a stable hemoglobin. It may be possible for him to go home, but he may also require continued hospitalization as when I saw him this evening, he was still having black stools. His chronic myelogenous leukemia should not enter into the decision as the Gleevec is an effective treatment for him. MD INGRIS Jarvis/twan , 07:48 PM , 08:04 PM RHODA
[2018-05-17] MEDS: Levothyroxine 150 MCG Tablet PO SCH (05:58)
[2018-05-17 08:00] LABS: Magnesium 2.2 mg/dL (1.5-2.5); Potassium 4.2 meq/L (3.5-5.1)
[2018-05-17 08:42] LABS: Total Protein 4.8 g/dL (6.4-8.2)
[2018-05-17] MEDS: KCL 20 mEq/NACL 0.45% Inj 1,000 ML IV.CONT SCH (08:57)
[2018-05-17] MEDS: Spironolactone 25 MG Tablet PO SCH (08:58)
[2018-05-17] MEDS: Metoprolol Tartrate 25 MG Tablet PO SCH (08:58)
[2018-05-17] MEDS: Furosemide 40 MG Tablet PO SCH (08:58)
[2018-05-17 10:41] LABS: Baso % (Auto) 0.4 % (0.0-2.0); Eos # (Auto) 0.1 th/mm3 (0.0-0.4); Eos % (Auto) 4.1 % (0.0-4.0); Hematocrit 27.4 % (39.0-51.0); Hemoglobin 9.9 gm/dL (13.0-17.0); Lymph # (Auto) 0.4 th/mm3 (1.0-4.8); Lymph % (Auto) 14.9 % (9.0-44.0); Mean Corpuscular Hemoglobin 33.4 pg (27.0-34.0); Mean Corpuscular Volume 92.9 fL (80.0-100.0); Mean Platelet Volume 9.1 fL (7.0-11.0); Mono # (Auto) 0.2 th/mm3 (0.0-0.9); Mono % (Auto) 7.9 % (0.0-8.0); Neut # (Auto) 2.2 th/mm3 (1.8-7.7); Neut % (Auto) 72.7 % (16.0-70.0); Red Blood Count 2.95 mil/mm3 (4.50-5.90); Red Cell Distribution Width 16.1 % (11.6-17.2)
[2018-05-17 13:34] LABS: Platelet Count 145 th/mm3 (150-450)
[2018-05-17 14:11] LABS: Burr Cells 1+
[2018-05-17 14:12] LABS: Platelet Morphology Normal (Normal)
--- NOTE | 2018-05-29 10:15 | MR ---
cc: Toby Astudillo MD DATE: 05/16/2018 INDICATIONS FOR PROCEDURE: Anemia, GI bleeding, liver cirrhosis. DETAILS OF PROCEDURE: After informed consent and explaining the risks of the procedure to the patient, including bleeding, perforation, risk of anesthesia, Mr. Quintero was placed in the left lateral decubitus position and sedated with the help of anesthesia. An enteroscope was introduced from the mouth into the 4th portion of the duodenum. Normal duodenum seen except in the 2nd portion of the duodenum a couple AVMs were seen. These were small and nonbleeding. These were cauterized using the argon plasma nut sheller. The scope was withdrawn through the stomach, revealing gastritis and evidence of portal gastropathy. Esophageal lining was normal except for [place] class A esophagitis. Endoscope was then withdrawn. The patient appeared to tolerate the procedure well. There were no apparent immediate complications. IMPRESSION: Duodenal arteriovenous malformations, gastritis, portal gastropathy, esophagitis. RECOMMENDATIONS: Continue to monitor labs. The patient had significant evidence of GAVE disease in his stomach. Again, argon plasma nut sheller was used for this. The patient is recommended a TIPS procedure. This has been discussed with Dr. Acuña. Further recommendations to follow. Thank you for this referral. Toby Astudillo MD HZ/tamara , 09:01 AM , 09:06 AM
== END 2018-05-17 18:55 | disposition home or self-care (01) ==
LOC: NEPE 14:30 → NEDA 16:41 → N06 17:40
PROVIDERS: ADMIT Hospitalist; ATTEND Hospitalist
PROC: PANENDO (2018-05-16 11:55)

== ENCOUNTER 2018-05-22 11:41 | Inpatient (IN) ==
[2018-05-22 12:46] LABS: Baso % (Auto) 0.2 % (0.0-2.0); Eos # (Auto) 0.1 th/mm3 (0.0-0.4); Eos % (Auto) 0.8 % (0.0-4.0); Hemoglobin 9.8 gm/dL (13.0-17.0); Lymph # (Auto) 0.6 th/mm3 (1.0-4.8); Lymph % (Auto) 7.8 % (9.0-44.0); Mean Corpuscular HGB Conc 34.9 % (32.0-36.0); Mean Corpuscular Hemoglobin 32.8 pg (27.0-34.0); Mean Platelet Volume 8.5 fL (7.0-11.0); Mono # (Auto) 0.8 th/mm3 (0.0-0.9); Mono % (Auto) 11.6 % (0.0-8.0); Neut # (Auto) 5.8 th/mm3 (1.8-7.7); Neut % (Auto) 79.6 % (16.0-70.0); Platelet Count 106 th/mm3 (150-450); Red Blood Count 2.98 mil/mm3 (4.50-5.90); Red Cell Distribution Width 16.5 % (11.6-17.2); White Blood Count 7.3 th/mm3 (4.0-11.0)
[2018-05-22] MEDS ORDERED: Metoprolol Tartrate 25 MG Tablet PO ONE (12:46)
[2018-05-22] MEDS ORDERED: Chlorhexidine Gluconate 2% 1 Pack (2 Cloths) TOPICAL ONE (12:46)
[2018-05-22 12:55] LABS: Activated Partial Thrombo Time 25.4 sec (24.3-30.1); INR 1.2 Ratio; Prothrombin Time 12.5 sec (9.8-11.6)
[2018-05-22] MEDS ORDERED: Sodium Chlor 0.9% Inj 500 ML IV.SIG SCH (13:00)
[2018-05-22] MEDS ORDERED: ceFAZolin 2 GM Premix Inj 2 GM/50 ML PIGGYBACK IV.SIG ONE (13:00)
[2018-05-22 13:08] LABS: Albumin 2.2 g/dL (3.4-5.0); Anion Gap 11 meq/L (5-15); Aspartate Aminotransferase 29 U/L (15-37); Blood Urea Nitrogen 33 mg/dL (7-18); Calcium 7.6 mg/dL (8.5-10.1); Carbon Dioxide 20.4 meq/L (21.0-32.0); Chloride 109 meq/L (98-107); Glomerular Filtration Rate 32 mL/min (>89); Potassium 4.2 meq/L (3.5-5.1); Sodium 140 meq/L (136-145)
[2018-05-22 13:09] LABS: Alanine Aminotransferase 40 U/L (12-78)
[2018-05-22 13:11] LABS: Alkaline Phosphatase 188 U/L (45-117); Total Protein 5.5 g/dL (6.4-8.2)
[2018-05-22] MEDS ORDERED: Glycopyrrolate Inj 1 MG/5 ML Syringe IV.PUSH ONE (13:40)
[2018-05-22] MEDS ORDERED: Neostigmine Inj 5 MG/5 ML Syringe IV.PUSH ONE (13:40)
[2018-05-22] MEDS ORDERED: Phenylephrine/NS 1000 MCG/10ML Syringe IV.PUSH ONE (13:40)
[2018-05-22] MEDS ORDERED: Sodium Bicarbonate 8.4% Inj 154 MEQ in Sod Chloride 0.9% Inj 846 ML IV.CONT SCH (14:00)
--- NOTE | 2018-05-22 17:19 | P.RAD ---
Post Procedure Progress Note - Procedure Information Procedure Date: 05/22/18 Supervising Radiologist: Carlos Shah MD Estimated blood loss (mL): 5 Anesthesia: General - Plan of Activity Patient to Unit: PACU Patient Condition: Good See PACS Report for procedural detail/treatment.
[2018-05-22] MEDS ORDERED: Iohexol 350 MG/ML 50 ML Vial (for Rad Diag) IVCONTRAST ONE (17:39)
[2018-05-22 17:59] LABS: Hemoglobin 9.6 gm/dL (13.0-17.0)
[2018-05-22] MEDS ORDERED: *Ondansetron Inj 4 MG/2 ML Vial PERIprocedural Use ONLY ONE (18:12)
[2018-05-22] MEDS: Temazepam 15 MG Capsule PO PRN (22:05)
[2018-05-22] MEDS: Spironolactone 25 MG Tablet PO SCH (22:06)
[2018-05-23] MEDS: Levothyroxine 150 MCG Tablet PO SCH (06:42)
[2018-05-23 07:39] LABS: Calcium 6.9 mg/dL (8.5-10.1); Carbon Dioxide 25.5 meq/L (21.0-32.0)
[2018-05-23 07:52] LABS: Total Protein 4.5 g/dL (6.4-8.2)
[2018-05-23] MEDS: Furosemide 40 MG Tablet PO SCH (09:08)
[2018-05-23] MEDS: Metoprolol Tartrate 25 MG Tablet PO SCH (09:08)
[2018-05-23] MEDS: Spironolactone 25 MG Tablet PO SCH ×2 (09:13→18:10)
--- NOTE | 2018-05-23 10:20 | P.HPIM ---
History of Present Illness Primary Care Physician: Dwayne Florian MD Chief Complaint: Cough History of Present Illness: Mr. 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 fib with PPM, CAD with hx of [place] s/p stent x2, steatohepatitis with liver cirrhosis, recurrent ascites, esophageal varices and thyroid disease. Pt was recently admitted from 05/15/18-05/16/18 for anemia and underwent Enteroscopy on (05/16) with Dr. 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 At that time pt was recommended by GI for TIPS procedure. [place] [facility] after having TIPS procedure performed by IR. The [facility] Hospitalist team was consulted to hemp with admission and medical management. Pt complains of some cough and right sided rib pain when coughing or deep breathing for the last 4-5 days. He states that he has had a lot of post-nasal drip and has been coughing up some yellow phlegm. He denies any fevers or chills, sore throat, dizziness, weakness, palpitations, chest pain, or SOB. Past Medical Hx: Alzheimer's disease Severe recurrent anemia GAVE CML on Gleevec [place] Feli Syndrome A. fib with PPM CAD with [place] stent x 2 Recurrent ascites from cirrhosis Pleural effusions Esophageal varices Thyroid disease Past Surgical Hx: Enteroscopy (05/16) with Dr. Astudillo --> multiple AVMs in stomach & duodenum s/ p cauterization, GAVE, esophageal varices, portal gastropathy, and esophagitis Multiple EGDs Paracentesis Cholecystectomy PTCA with stent placement x2 Right chest [id number] PPM, medronic Sinus surgery Cystoscopy Family Hx: Noncontributory Social Hx: Denies ETOH use or tobacco use - Diagnosis (1) Liver cirrhosis (2) Anemia (3) Hyperlipidemia (4) GERD (gastroesophageal reflux disease) (5) Thyroid disease (6) HTN (hypertension) Inpatient Certification: I certify that the inpatient services were ordered in accordance with Medicare regulations governing the order. This includes certification that hospital inpatient services are reasonable and necessary and in the case of services not specified as inpatient-only under 42 CFR 419.22(n), that they are appropriately provided as inpatient services in accordance to with the 2-midnight benchmark under 43 CFR 412.3(e) Estimated Total Length of Stay (Days): 1 Plans for Post Hospital Care: Home Review of Systems Constitutional: Denies chills, Denies fever(s) Respiratory: Reports cough Gastrointestinal: Reports abdominal pain PMFSH - History History Provided By: Patient - Medical History Medical History: Medical History (Last Reviewed 05/28/18 @ 08:00 by Beata Li) Hyperlipidemia (Acute) GERD (gastroesophageal reflux disease) (Acute) Thyroid disease (Acute) Liver cirrhosis (Acute) HTN (hypertension) (Acute) Leukemia - Surgical History Surgical History: Surgical History (Last Reviewed 05/27/18 @ 14:15 by Oliver German) H/O heart artery stent (Acute) Hx of tonsillectomy (Acute) Hx of cholecystectomy (Acute) - Tobacco History Second Hand Smoke Exposure: No Smoking Status: Never smoker - Alcohol History How Often Do You Have a Drink Containing Alcohol: Never - Substance Use History Substance History: No History of Abuse - Travel History Recent Travel in the [place] Within the Last 8 Weeks: No Recent Travel Out of the Country Within the Last 8 Weeks: No Medications and Allergies Allergies Allergy/AdvReac Type Severity Reaction Status Date / Time benazepril Allergy Severe ANGIOEDEMA Verified 05/15/18 15:22 captopril Allergy Severe ANGIOEDEMA Verified 05/15/18 15:22 enalaprilat Allergy Severe ANGIOEDEMA Verified 05/15/18 15:22 fosinopril Allergy Severe ANGIOEDEMA Verified 05/15/18 15:22 lisinopril Allergy Severe ANGIOEDEMA Verified 05/15/18 15:22 meperidine Allergy Severe Anaphylaxis Verified 05/22/18 12:20 quinapril Allergy Severe ANGIOEDEMA Verified 05/15/18 15:22 amiodarone AdvReac Intermediate Swelling Verified 05/22/18 12:20 DASATINIB AdvReac Unknown Edema Uncoded 05/22/18 12:20 Home Medications Medication Instructions Recorded Confirmed Type ascorbic acid (vitamin C) 500 mg PO DAILY 05/11/18 05/11/18 History cholecalciferol (vitamin D3) 2,000 unit PO DAILY 05/11/18 05/11/18 History citalopram 40 mg PO BID 05/11/18 05/11/18 History diphenoxylate-atropine [Lomotil] 1 tab PO Q6-8H PRN 05/11/18 05/11/18 History furosemide 40 mg PO DAILY 05/11/18 05/22/18 History imatinib 400 mg PO DAILY 05/11/18 05/22/18 History levothyroxine 150 mcg PO DAILY 05/11/18 05/22/18 History metoprolol tartrate 25 mg PO DAILY 05/11/18 05/22/18 History pantoprazole 40 mg PO BID 05/11/18 05/22/18 History potassium chloride 10 meq PO DAILY 05/11/18 05/22/18 History simvastatin 5 mg PO QPM 05/11/18 05/15/18 History spironolactone 25 mg PO BID 05/11/18 05/22/18 History temazepam 30 mg PO HS 05/11/18 05/22/18 History Active Medications: Active Medications Hydrocodone Bitart/Acetaminophen ([place] 5/325) 1 tab PO Q6H PRN PRN Reason: PAIN SCALE 3-10 Last Admin: 05/23/18 03:52 Dose: 1 tab Citalopram Hydrobromide (Celexa) 40 mg PO BID [facility] Last Admin: 05/23/18 09:08 Dose: 40 mg Furosemide (Lasix) 40 mg PO DAILY [facility] Last Admin: 05/23/18 09:08 Dose: 40 mg Sodium Chloride (Ns Inj) 1,000 mls @ 30 mls/hr IV.CONT .Q24H [facility] Sodium Chloride (Ns Inj) 500 mls @ 30 mls/hr IV.SIG .Q10H [facility] Lactated Ringer's (Lr 1000 Ml Inj) 1,000 mls @ 30 mls/hr IV.SIG .Q24H [facility] Stop: 05/23/18 12:59 Sodium Bicarbonate 154 meq/ (Sodium Chloride) 1,000 mls @ 0 mls/hr IV.CONT .Q0M [facility]; Protocol Last Infusion: 05/22/18 23:00 Dose: Infused Levothyroxine Sodium (Synthroid) 150 mcg PO DAILY@0600 [facility] Last Admin: 05/23/18 06:42 Dose: 150 mcg Metoprolol Tartrate (Lopressor) 25 mg PO DAILY [facility] Last Admin: 05/23/18 09:08 Dose: 25 mg Miscellaneous Information (Misc Nursing Information) 0 each OTHER UNSCH PRN PRN Reason: SEE LABEL COMMENTS Stop: 05/23/18 21:46 Pantoprazole Sodium (Protonix) 40 mg PO BID [facility] Last Admin: 05/23/18 09:08 Dose: 40 mg Pt's Own: (Imatinib) (Gleevec 400mg) 0 each PO DAILY [facility] Potassium Chloride (Klor-Con 10) 10 meq PO DAILY [facility] Last Admin: 05/23/18 09:08 Dose: 10 meq Spironolactone (Aldactone) 25 mg PO DAILY@0900,1800 [facility] Last Admin: 05/23/18 09:13 Dose: 25 mg Temazepam (Restoril) 30 mg PO HS PRN PRN Reason: INSOMNIA Last Admin: 05/22/18 22:05 Dose: 30 mg Exam Vital signs: Vital Signs 05/22/18 12:00 05/22/18 17:20 05/22/18 17:30 Temperature 98.8 F 98.1 F Pulse Rate 89 80 85 Respiratory Rate 18 22 15 Blood Pressure 127/62 162/54 H 145/57 H Pulse Oximetry 96 97 100 05/22/18 17:45 05/22/18 18:00 05/22/18 18:15 Temperature 97.6 F Pulse Rate 83 82 84 Respiratory Rate 16 16 16 Blood Pressure 134/59 L 120/56 L 112/55 L Pulse Oximetry 96 98 05/22/18 18:25 05/22/18 18:30 05/22/18 19:15 Temperature 98.2 F Pulse Rate 85 88 Respiratory Rate 16 18 Blood Pressure 119/55 L 142/61 H Pulse Oximetry 98 99 97 05/23/18 00:00 05/23/18 04:00 Temperature 97.8 F 97.8 F Pulse Rate 89 79 Respiratory Rate 18 18 Blood Pressure 127/59 L 112/54 L Pulse Oximetry 95 96 Intake & Output 05/22/18 05/23/18 05/23/18 18:59 06:59 18:59 Intake Total 50 / 50 1640 / 1640 Balance 50 / 50 1640 / 1640 Weight 86.183 kg 85.729 kg Intake: IV 50 / 50 1000 / 1000 Sodium Bicarbonate 8.4% Inj 154 1000 / 1000 MEQ In NS Inj 846 ML @ Per Protocol IV.CONT .Q0M [facility] Rx#: [id number] Ancef 2 GM Premix Inj 2 gm In 50 / 50 50 ml @ 100 mls/hr IV.SIG ONCE ONE Rx#:[id number] Oral 640 / 640 Other: # Voids 5 Date of Last Bowel Movement 05/21/18 05/21/18 Weight On Admission 86.183 kg Narrative: GENERAL: NAD, AAOx3 SKIN: Warm and dry. HEENT: Atraumatic. Normocephalic. Pupils equal and round. No scleral icterus. No injection or drainage. No nasal bleeding or discharge. Pt with yellow/ greenish post-nasal drip. NECK: Trachea midline. No JVD. CARDIO: Regular RESP: No accessory muscle use. Crackles at the left base. Decreased air movement on the right base. ABD: +BS, soft, non-tender, nondistended. Hepatic and splenic margins not palpable. EXT: Extremities without clubbing, cyanosis, or edema. No obvious deformities. NEURO: Awake and alert. No obvious cranial nerve deficits. Motor grossly within normal limits. Five out of 5 muscle strength in the arms and legs. Normal speech. PSYCHIATRIC: Appropriate mood and affect; insight and judgment normal. Results - Labs CBC & Chem 7: 06/01/18 06:40 06/01/18 06:40 Labs: Short CBC 05/22/18 05/22/18 Range/Units 12:20 17:45 WBC 7.3 (4.0-11.0) th/mm3 Hgb 9.8 L 9.6 L (13.0-17.0) gm/dL Hct 28.0 L 28.0 L (39.0-51.0) % Plt Count 106 L (150-450) th/mm3 [facility] 05/22/18 05/23/18 12:20 05:59 Sodium 140 141 Potassium 4.2 4.0 Chloride 109 H 107 Carbon Dioxide 20.4 L 25.5 BUN 33 H 31 H Creatinine 2.06 H 2.01 H Calcium 7.6 L 6.9 L* Liver Function 05/22/18 Range/Units 12:20 Total Bilirubin 2.6 H (0.2-1.0) mg/dL AST 29 (15-37) U/L ALT 40 (12-78) U/L Alkaline Phosphatase 188 H (45-117) U/L Albumin 2.2 L (3.4-5.0) g/dL Caprini VTE Risk Assessment Caprini VTE Risk Assessment: No/Low Risk (score <= 1) Caprini Risk Assessment Model: Point Value = 1 Point Value = 2 Point Value = 3 Point Value = 5 Age 41-60 Minor surgery BMI > 25 kg/m2 Swollen legs Varicose veins or History of unexplained or recurrent spontaneous Oral contraceptives or hormone replacement Sepsis (< 1 month) Serious lung disease, including pneumonia (< 1 month) Abnormal pulmonary function Acute myocardial infarction Congestive heart failure (< 1 month) History of inflammatory bowel disease Medical patient at bed rest Age 61-74 Arthroscopic surgery Major open surgery (> 45 min) Laparoscopic surgery (> 45 min) Malignancy Confined to bed (> 72 hours) Immobilizing plaster cast Central venous access Age >= 75 History of VTE Family history of VTE Factor V Leiden Prothrombin [id number] Lupus anticoagulant Anticardiolipin antibodies Elevated serum homocysteine Heparin-induced thrombocytopenia Other congenital or acquired thrombophilia Stroke (< 1 month) Elective arthroplasty Hip, pelvis, or leg fracture Acute spinal cord injury (< 1 month) Prophylaxis Regimen: Total Risk Factor Score Risk Level Prophylaxis Regimen 0-1 Low Early ambulation 2 Moderate Order ONE of the following: *Sequential Compression Device (SCD) *Heparin 5000 units SQ BID 3-4 Higher Order ONE of the following medications: *Heparin 5000 units SQ TID *Enoxaparin/Lovenox 40 mg SQ daily (WT < 150 kg, CrCl > 30 mL/min) *Enoxaparin/Lovenox 30 mg SQ daily (WT < 150 kg, CrCl > 10-29 mL/min) *Enoxaparin/Lovenox 30 mg SQ BID (WT < 150 kg, CrCl > 30 mL/min) AND/OR *Sequential Compression Device (SCD) 5 or more Highest Order ONE of the following medications: *Heparin 5000 units SQ TID (Preferred with Epidurals) *Enoxaparin/Lovenox 40 mg SQ daily (WT < 150 kg, CrCl > 30 mL/min) *Enoxaparin/Lovenox 30 mg SQ daily (WT < 150 kg, CrCl > 10-29 mL/min) *Enoxaparin/Lovenox 30 mg SQ BID (WT < 150 kg, CrCl > 30 mL/min) AND *Sequential Compression Device (SCD) Assessment and Plan - Assessment (1) Liver cirrhosis Code(s): K74.60 - Unspecified cirrhosis of liver Status: Acute Plan: Liver Cirrhosis Steatohepatitis Recurrent ascites Portal gastropathy - Pt is a 72-year-old male with a history of mild Alzheimer's, GAVE with recurrent anemia requiring frequent transfusions, CML on Gleevec, [place] Flei Syndrome, A. fib with PPM, CAD with hx of [place] s/p stent x2, steatohepatitis with liver cirrhosis, recurrent ascites, esophageal varices and thyroid disease. - During pts recent admission pt was recommended by GI for TIPS procedure. - Patient was [place] [facility] [place] after having TIPS procedure performed by IR. - IR is following and rechecking ammonia level in AM but pt currently does not appear encephalopathic. Recurrent Anemia GAVE - Pt was recently admitted from 05/15/18-05/16/18 for anemia and underwent Enteroscopy on (05/16) with Dr. 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 - H/H is currently stable - No active bleeding currently - Monitor labs Cough Post-nasal drip Chest wall pain Hx of pleural effusion - Pt complains of some cough and right sided rib pain when coughing or deep breathing for the last 4-5 days. - He states that he has had a lot of post-nasal drip and has been coughing up some yellow phlegm. - Check CXR today - Start Claritin 10mg po daily and Mucinex - Consider Flonase CML on Gleevac - Pt follows with Dr. Tran as an outpt A. fib with PPM CAD with hx of [place] - Home meds continued (2) Anemia Code(s): D64.9 - Anemia, unspecified Status: Acute (3) Hyperlipidemia Code(s): E78.5 - Hyperlipidemia, unspecified Status: Acute (4) GERD (gastroesophageal reflux disease) Code(s): K21.9 - Gastro-esophageal reflux disease without esophagitis Status: Acute (5) Thyroid disease Code(s): E07.9 - Disorder of thyroid, unspecified Status: Acute (6) HTN (hypertension) Code(s): I10 - Essential (primary) hypertension Status: Acute
--- NOTE | 2018-05-23 13:24 | IR ---
EXAM DATE: 05/22/2018 5:37 PM EDT AGE/SEX: 72 years / Male INDICATIONS: Patient presents with recurrent GI bleed, portal hypertension and myelogenous leukemia here for TIPS procedure. CLINICAL DATA: This is the patient's initial encounter. Patient reports that signs and symptoms have been present for 7 - 11 months and indicates a pain score of 7/10. MEDICAL/SURGICAL HISTORY: Leukemia. Gastrointestinal bleed. Cirrhosis. ARF, Steatohepatitis, Ascites Cholecystectomy. Tonsillectomy. Port Placement, Pacemaker, Single Balloon Enteroscopy COMPARISON: [facility], CHEST 1V SINGLE AP, 05/23/2018. . FLUORO TIME (min): 67 IMAGE SERIES: 28 ACCESS SITE: Right internal jugular vein CONTRAST (cc): 50cc Omnipaque (iohexol) 350 ; ; ; ; Anesthesia and pain control was provided by the Anesthesia department. DEVICE(S): Right Portal vein [id number] Interlock Coil ; Right Portal vein Magness Viatorr Stent 8+2 ; Right Portal v ein WOOD CARVER balloon Filling Station Laborer [id number] Balloon PROCEDURE : 1. Ultrasound-guided puncture of the access site. 2. Right atrial pre-TIPS pressure measurements 3. Placement of transjugular intrahepatic portosystemic shunt (TIPS) 4. Right hepatic vein and portal venography 5. Right atrial and portal post TIPS pressure measurements 6. Coil embolization of gastric varix. The risks, benefits and alternatives to the procedure were explained and verbal and written consent w as obtained. The site was prepped in sterile fashion. Full sterile technique was used, including ca p, mask, sterile gloves and gown and a large sterile sheet. Hand hygiene and 2% chlorhexidine and/or betadine/alcohol prep was utilized per protocol for cutaneous antisepsis. Sterile gel and sterile p robe cover were utilized for ultrasound guidance. The skin and subcutaneous tissues were infiltrated with local anesthetic solution. Ultrasound evaluation of the right internal jugular vein demonstrated a patent internal jugular vein. Single image was obtained and placed in PACS archive. A 21-gauge micropuncture needle was advanced i nto the internal jugular vein under direct ultrasound guidance. This was subsequently exchanged for a 6 [place] sheath. Pressure measurements were then obtained through the sheath. Next, a Rasheeda catheter was used to select the right hepatic vein and venogram was performed demonstrating patency. Sheath w as subsequently exchanged for a 10 [place] sheath which was advanced into the right hepatic vein. Need le was advanced through a metal cannula and following multiple passes through right lobe of the liver the portal vein was accessed. Catheter was advanced into the portal vein and venography was performe d confirming position in the portal vein. Next, the tract was dilated with 6 x 40 mm balloon and cagle th was advanced into the portal vein. An 8+2 cm x 10 mm Viatorr stent was deployed through the tract and subsequently dilated to 8 mm with 8 mm balloon. Repeat portal venogram was performed demonstratin g widely patent TIPS with a dominant gastric varix. This was selected with a Rasheeda catheter and posit ion confirmed with small amount contrast. Next, this varix was embolized with a single 8 mm interlock coil. Follow-up venography demonstrated stasis of flow in the embolized varix without additional dom inant varices identified. Catheters and wires were then removed and hemostasis obtained at the puncture site with manual compre ssion. The patient tolerated the procedure well and there were no complications. FINDINGS: Right atrial pressure pre-TIPS placement: 11 mmHg Right atrial pressure Post-TIPS placement: 24 mmHg Portal vein pressure Post-TIPS placement: 15 mmHg Post-TIPS gradient: 9mmHg Right hepatic vein and portal veins are patent. Right hepatic vein to right portal vein TIPS placemen t. . CONCLUSION: 1. Uncomplicated TIPS placement and coil embolization of a dominant gastric varix, as above. 2. PLAN: Baseline ultrasound examination in 2 weeks with surveillance ultrasound at 3 months, 6 marisa hs and one year. Electronically signed by: Carlos Shah MD 05/23/2018 1:23 PM EDT
--- NOTE | 2018-05-23 13:35 | XR ---
EXAM DATE: 05/23/2018 12:42 PM EDT AGE/SEX: 72 years / Male INDICATIONS: Cough, short of breath CLINICAL DATA: This is the patient's initial encounter. Patient reports that signs and symptoms have been present for 1 week and indicates a pain score of 0/10. MEDICAL/SURGICAL HISTORY: Leukemia. Cardiovascular disease. Hypertension. diabetic, renal di sease, chemo Coronary artery stent. Pacemaker. Cholecystectomy. infusaport COMPARISON: [facility], CHEST 1V SINGLE AP, 05/16/2018. . FINDINGS: The cardiac silhouette is enlarged in transverse diameter. A bipolar pacemaker is in place via a left sided approach. [id number] is in place via right internal jugular approach with its tip in the yanes perior vena cava. A moderate size right sided effusion is present. There is subsegmental atelectasis in the right base. CONCLUSION: Moderate size right-sided effusion enlarging when compared with the prior study. Right basilar atelec tasis. Electronically signed by: Juan Murray MD 05/23/2018 1:34 PM EDT
[2018-05-23] MEDS: guaiFENesin 600 MG ER Tablet PO SCH ×2 (16:02→20:24)
[2018-05-23] MEDS: Loratadine 10 MG Tablet PO SCH (16:02)
[2018-05-24] MEDS: Levothyroxine 150 MCG Tablet PO SCH (06:02)
[2018-05-24 06:36] LABS: Baso % (Auto) 0.3 % (0.0-2.0); Eos # (Auto) 0.2 th/mm3 (0.0-0.4); Eos % (Auto) 2.5 % (0.0-4.0); Hematocrit 23.3 % (39.0-51.0); Hemoglobin 8.1 gm/dL (13.0-17.0); Lymph # (Auto) 0.6 th/mm3 (1.0-4.8); Lymph % (Auto) 6.9 % (9.0-44.0); Mean Corpuscular HGB Conc 34.7 % (32.0-36.0); Mean Corpuscular Hemoglobin 32.6 pg (27.0-34.0); Mean Corpuscular Volume 94.1 fL (80.0-100.0); Mean Platelet Volume 8.2 fL (7.0-11.0); Mono # (Auto) 0.9 th/mm3 (0.0-0.9); Mono % (Auto) 11.1 % (0.0-8.0); Neut # (Auto) 6.7 th/mm3 (1.8-7.7); Neut % (Auto) 79.2 % (16.0-70.0); Platelet Count 74 th/mm3 (150-450); Red Blood Count 2.47 mil/mm3 (4.50-5.90); Red Cell Distribution Width 16.5 % (11.6-17.2); White Blood Count 8.5 th/mm3 (4.0-11.0)
[2018-05-24 07:11] LABS: Albumin 1.7 g/dL (3.4-5.0); Carbon Dioxide 26.4 meq/L (21.0-32.0); Total Protein 4.5 g/dL (6.4-8.2)
[2018-05-24] MEDS: guaiFENesin 600 MG ER Tablet PO SCH ×2 (09:05→20:17)
[2018-05-24] MEDS: Furosemide 40 MG Tablet PO SCH (09:07)
[2018-05-24] MEDS: Metoprolol Tartrate 25 MG Tablet PO SCH (09:07)
[2018-05-24] MEDS: Loratadine 10 MG Tablet PO SCH (09:07)
[2018-05-24] MEDS: IMATINIB PO SCH (09:08)
[2018-05-24] MEDS: [UNRECOGNIZED DRUG - OTHER] PO SCH (09:08)
[2018-05-24] MEDS: Sod Chloride 0.9% Inj 1,000 ML IV.CONT SCH ×2 (09:18→13:13)
[2018-05-24] MEDS: Spironolactone 25 MG Tablet PO SCH ×2 (09:26→18:34)
[2018-05-24] MEDS: Docusate Sodium 100 MG Capsule PO SCH ×2 (11:57→20:16)
--- NOTE | 2018-05-24 13:40 | P.PNIM ---
Subjective Interval history: Pt feels that his cough is slightly better but feels like he can't get the phlegm up enough He is still having some pain on the right back which he says started after he had vomiting last week before he was admitted He thinks he may have pulled a muscle Physical Exam Vital signs: Vital Signs 05/23/18 16:00 05/23/18 20:00 05/24/18 00:00 Temperature 98 F 98.7 F 97.3 F L Pulse Rate 18 L 85 75 Respiratory Rate 18 18 18 Blood Pressure 132/58 L 111/55 L 129/69 Pulse Oximetry 93 L 96 99 05/24/18 04:00 05/24/18 08:00 05/24/18 12:00 Temperature 98.1 F 97.7 F 97.9 F Pulse Rate 84 82 72 Respiratory Rate 18 18 18 Blood Pressure 113/58 L 117/54 L 110/56 L Pulse Oximetry 95 95 97 Intake & Output 05/23/18 05/24/18 05/24/18 18:59 06:59 18:59 Intake Total 120 / 120 Output Total 200 / 200 Balance -80 / -80 Weight 85.7 kg Intake: Oral 120 / 120 Output: Urine 200 / 200 Other: # Voids 3 Date of Last Bowel Movement 05/21/18 05/21/18 Narrative: General: NAD, AAOx3 Chest: Crackles at the left base. Decreased air movement on the right base. Cardiac: Regular Abd: +BS, soft ND/NT Ext: No edema Results - Labs CBC & Chem 7: 05/24/18 06:10 05/24/18 06:10 Laboratory Results - last 24 hr 05/24/18 05/24/18 05/24/18 06:10 06:10 06:10 WBC 8.5 RBC 2.47 L Hgb 8.1 L Hct 23.3 L MCV 94.1 MCH 32.6 MCHC 34.7 RDW 16.5 Plt Count 74 L D MPV 8.2 Prelim Diff (Auto) Slide review pending Neut % (Auto) 79.2 H Lymph % (Auto) 6.9 L [place] % (Auto) 11.1 H Eos % (Auto) 2.5 Baso % (Auto) 0.3 Neut # (Auto) 6.7 Lymph # (Auto) 0.6 L [place] # (Auto) 0.9 Eos # (Auto) 0.2 Baso # (Auto) 0.0 WBC Differential . Diff Scan Auto diff confirmed Differential Comment . Sodium 139 Potassium 4.0 Chloride 105 Carbon Dioxide 26.4 Anion Gap 8 BUN 34 H Creatinine 2.15 H Estimated GFR 31 L Random Glucose 102 Calcium 7.0 L* Prot Corrected Calcium 8.4 L Total Bilirubin 1.5 H AST 55 H ALT 64 Alkaline Phosphatase 162 H Ammonia 126 H Total Protein 4.5 L Albumin 1.7 L - Imaging Impressions TIPS 05/22/18 00:00 CONCLUSION: 1. Uncomplicated TIPS placement and coil embolization of a dominant gastric varix, as above. 2. PLAN: Baseline ultrasound examination in 2 weeks with surveillance ultrasound at 3 months, 6 months and one year. Chest X-Ray 05/23/18 11:56 CONCLUSION: Moderate size right-sided effusion enlarging when compared with the prior study. Right basilar atelectasis. 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 fib with PPM, CAD with hx of [place] s/p stent x2, steatohepatitis with liver cirrhosis, recurrent ascites, esophageal varices and thyroid disease. - During pts recent admission pt was recommended by GI for TIPS procedure. - [place] [facility] after having TIPS procedure performed by IR. - Repeat ammonia level this morning was 126. - Start Lactulose - Repeat labs in AM Recurrent Anemia GAVE - Pt was recently admitted from 05/15/18-05/16/18 for anemia and underwent Enteroscopy on (05/16) with Dr. 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 - H/H (05/24) --> 8.1/23.3 - No active bleeding currently - Monitor labs Cough Post-nasal drip Chest wall pain Hx of pleural effusion - Pt complains of some cough and right sided rib pain when coughing or deep breathing for the last 4-5 days. - He states that he has had a lot of post-nasal drip and has been coughing up some yellow phlegm. - CXR (05/23/18) --> Moderate size right-sided effusion enlarging when compared with the prior study. Right basilar atelectasis. - Cont Claritin 10mg po daily and Mucinex - Cont Flonase - The case was discussed between Dr. Garcia and Dr. Avila on 05/23/18 and due to the extensive procedure that was performed for the TIPS radiology did not want to proceed with a thoracentesis at this time. We will re-evaluate on Saturday with an US to see if they pleural effusion is still large enough to drain at that time. CML on Gleevac - Pt follows with Dr. Tran as an outpt A. fib with PPM CAD with hx of [place] - Home meds continued The exam, history, and the medical decision-making described in the above note were completed with the assistance of the mid-level provider. I reviewed and agree with the findings presented. I attest that I had a [id number] encounter with the patient on the same day, and personally performed and documented my assessment and findings in the medical record. (2) Anemia Code(s): D64.9 - Anemia, unspecified Status: Acute (3) Hyperlipidemia Code(s): E78.5 - Hyperlipidemia, unspecified Status: Acute (4) GERD (gastroesophageal reflux disease) Code(s): K21.9 - Gastro-esophageal reflux disease without esophagitis Status: Acute (5) Thyroid disease Code(s): E07.9 - Disorder of thyroid, unspecified Status: Acute (6) HTN (hypertension) Code(s): I10 - Essential (primary) hypertension Status: Acute
[2018-05-24] MEDS: Temazepam 15 MG Capsule PO PRN (20:19)
[2018-05-25] MEDS: Levothyroxine 150 MCG Tablet PO SCH (06:02)
[2018-05-25 06:44] LABS: Baso % (Auto) 0.2 % (0.0-2.0); Eos # (Auto) 0.1 th/mm3 (0.0-0.4); Eos % (Auto) 2.2 % (0.0-4.0); Lymph # (Auto) 0.4 th/mm3 (1.0-4.8); Lymph % (Auto) 7.4 % (9.0-44.0); Mean Corpuscular HGB Conc 33.8 % (32.0-36.0); Mean Corpuscular Hemoglobin 32.4 pg (27.0-34.0); Mean Corpuscular Volume 95.9 fL (80.0-100.0); Mean Platelet Volume 8.6 fL (7.0-11.0); Mono # (Auto) 0.5 th/mm3 (0.0-0.9); Neut # (Auto) 4.7 th/mm3 (1.8-7.7); Neut % (Auto) 81.2 % (16.0-70.0); Platelet Count 57 th/mm3 (150-450); Red Blood Count 2.05 mil/mm3 (4.50-5.90); Red Cell Distribution Width 16.7 % (11.6-17.2); White Blood Count 5.7 th/mm3 (4.0-11.0)
[2018-05-25 07:11] LABS: Albumin 1.7 g/dL (3.4-5.0); Calcium 6.9 mg/dL (8.5-10.1); Carbon Dioxide 26.2 meq/L (21.0-32.0); Potassium 4.1 meq/L (3.5-5.1); Total Protein 4.5 g/dL (6.4-8.2)
[2018-05-25 07:14] LABS: Hematocrit 19.6 % (39.0-51.0); Hemoglobin 6.6 gm/dL (13.0-17.0)
[2018-05-25 08:37] LABS: Platelet Morphology Normal (Normal)
[2018-05-25] MEDS: IMATINIB PO SCH (09:28)
[2018-05-25] MEDS: [UNRECOGNIZED DRUG - OTHER] PO SCH (09:28)
[2018-05-25] MEDS: Metoprolol Tartrate 25 MG Tablet PO SCH (09:29)
[2018-05-25] MEDS: guaiFENesin 600 MG ER Tablet PO SCH ×2 (09:30→21:00)
[2018-05-25] MEDS: Furosemide 40 MG Tablet PO SCH (09:30)
[2018-05-25] MEDS: Docusate Sodium 100 MG Capsule PO SCH ×2 (09:31→21:00)
[2018-05-25] MEDS: Loratadine 10 MG Tablet PO SCH (09:32)
[2018-05-25] MEDS: Spironolactone 25 MG Tablet PO SCH ×2 (09:59→17:15)
--- NOTE | 2018-05-25 10:47 | P.PNIM ---
Subjective Interval history: Pt feeling worse today, more weak, still coughing quite a bit He brought some phlegm up last night Still with post nasal drip His Hgb dropped to 6.6 today Physical Exam Vital signs: Vital Signs 05/24/18 12:00 05/24/18 13:47 05/24/18 16:06 Temperature 97.9 F 98.3 F Pulse Rate 72 71 75 Respiratory Rate 18 18 18 Blood Pressure 110/56 L 113/54 L Pulse Oximetry 97 94 L 05/24/18 20:00 05/25/18 00:00 05/25/18 04:00 Temperature 97.7 F 97.6 F 98.5 F Pulse Rate 69 75 87 Respiratory Rate 18 20 18 Blood Pressure 98/47 L 97/53 L 119/60 Pulse Oximetry 98 96 97 05/25/18 08:00 05/25/18 09:30 Temperature 97.6 F Pulse Rate 85 77 Respiratory Rate 17 20 Blood Pressure 113/56 L Pulse Oximetry 96 Intake & Output 05/24/18 05/25/18 05/25/18 18:59 06:59 18:59 Intake Total 720 / 720 Balance 720 / 720 Weight 91.1 kg Intake: Oral 720 / 720 Other: # Voids 1 2 Date of Last Bowel Movement 05/21/18 05/21/18 Narrative: General: NAD, AAOx3 Chest: Rhonchi throughout. Decreased air movement on the right base. Cardiac: Regular Abd: +BS, soft ND/NT Ext: No edema Results - Labs CBC & Chem 7: 05/25/18 06:19 05/25/18 06:19 Laboratory Results - last 24 hr 05/25/18 05/25/18 05/25/18 06:19 06:19 06:19 WBC 5.7 RBC 2.05 L Hgb 6.6 L* Hct 19.6 L* MCV 95.9 MCH 32.4 MCHC 33.8 RDW 16.7 Plt Count 57 L MPV 8.6 Prelim Diff (Auto) Slide review pending Neut % (Auto) 81.2 H Lymph % (Auto) 7.4 L Mcclain % (Auto) 9.0 H Eos % (Auto) 2.2 Baso % (Auto) 0.2 Neut # (Auto) 4.7 Lymph # (Auto) 0.4 L Mcclain # (Auto) 0.5 Eos # (Auto) 0.1 Baso # (Auto) 0.0 WBC Differential . Diff Scan Auto diff confirmed Differential Comment . Platelet Estimate Low L Platelet Morphology Normal Sodium 138 Potassium 4.1 Chloride 104 Carbon Dioxide 26.2 Anion Gap 8 BUN 40 H Creatinine 2.55 H Estimated GFR 25 L Random Glucose 95 Calcium 6.9 L* Prot Corrected Calcium 8.3 L Total Bilirubin 1.3 H AST 41 H ALT 55 Alkaline Phosphatase 156 H Ammonia 98 H Total Protein 4.5 L Albumin 1.7 L Blood Type Antibody Screen MTS Gel Crossmatch 05/25/18 08:57 WBC RBC Hgb Hct MCV MCH MCHC RDW Plt Count MPV Prelim Diff (Auto) Neut % (Auto) Lymph % (Auto) Mcclain % (Auto) Eos % (Auto) Baso % (Auto) Neut # (Auto) Lymph # (Auto) Mcclain # (Auto) Eos # (Auto) Baso # (Auto) WBC Differential Diff Scan Differential Comment Platelet Estimate Platelet Morphology Sodium Potassium Chloride Carbon Dioxide Anion Gap BUN Creatinine Estimated GFR Random Glucose Calcium Prot Corrected Calcium Total Bilirubin AST ALT Alkaline Phosphatase Ammonia Total Protein Albumin Blood Type O Positive Antibody Screen Negative MTS Gel Crossmatch See Detail - Imaging TIPS 05/22/18 00:00 CONCLUSION: 1. Uncomplicated TIPS placement and coil embolization of a dominant gastric varix, as above. 2. PLAN: Baseline ultrasound examination in 2 weeks with surveillance ultrasound at 3 months, 6 months and one year. Chest X-Ray 05/23/18 11:56 CONCLUSION: Moderate size right-sided effusion enlarging when compared with the prior study. Right basilar atelectasis. 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 fib with PPM, CAD with hx of [place] s/p stent x2, steatohepatitis with liver cirrhosis, recurrent ascites, esophageal varices and thyroid disease. - During pts recent admission pt was recommended by GI for TIPS procedure. - [place] [facility] [place] having TIPS procedure performed by IR. - Repeat ammonia level on 05/24 was 126. Repeat on 05/25 - Cont. Lactulose - Repeat labs in AM Recurrent Anemia GAVE - Pt was recently admitted from 05/15/18-05/16/18 for anemia and underwent Enteroscopy on (05/16) with Dr. 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 - H/H 8.1/23.3 (05/24) --> 6.6/19.6 (05/25) - pt to receive 2 units PRBCs today with Lasix in between - No active bleeding currently - Monitor labs Cough Post-nasal drip Chest wall pain Hx of pleural effusion - Pt complains of some cough and right sided rib pain when coughing or deep breathing for the last 4-5 days. - He states that he has had a lot of post-nasal drip and has been coughing up some yellow phlegm. - CXR (05/23/18) --> Moderate size right-sided effusion enlarging when compared with the prior study. Right basilar atelectasis. - Cont Claritin 10mg po daily and Mucinex - Cont Flonase - The case was discussed between Dr. Garcia and Dr. Avila on 05/23/18 and due to the extensive procedure that was performed for the TIPS radiology did not want to proceed with a thoracentesis at this time. We will re-evaluate on Saturday with an US to see if they pleural effusion is still large enough to drain at that time. - Duonebs added on 05/24 - Pt sounding more rhonchorus and congested throughout on 05/25, add in Solu- Medrol - Plan for US guided thoracentesis for tomorrow. CML on Gleevac - Pt follows with Dr. Tran as an outpt A. fib with PPM CAD with hx of [place] - Home meds continued The exam, history, and the medical decision-making described in the above note were completed with the assistance of the mid-level provider. I reviewed and agree with the findings presented. I attest that I had a [id number] encounter with the patient on the same day, and personally performed and documented my assessment and findings in the medical record. (2) Anemia Code(s): D64.9 - Anemia, unspecified Status: Acute (3) Hyperlipidemia Code(s): E78.5 - Hyperlipidemia, unspecified Status: Acute (4) GERD (gastroesophageal reflux disease) Code(s): K21.9 - Gastro-esophageal reflux disease without esophagitis Status: Acute (5) Thyroid disease Code(s): E07.9 - Disorder of thyroid, unspecified Status: Acute (6) HTN (hypertension) Code(s): I10 - Essential (primary) hypertension Status: Acute
[2018-05-25] MEDS ORDERED: Levofloxacin 500 mg Premix Inj 500 MG/100 ML PIGGYBACK IV.SIG ONE (11:00)
[2018-05-25] MEDS ORDERED: MethylPREDNISolone Sod Succinate Inj 125 MG/2 ML Vial IV.PUSH ONE (11:00)
[2018-05-25] MEDS: Temazepam 15 MG Capsule PO PRN (22:42)
[2018-05-26] MEDS: Levothyroxine 150 MCG Tablet PO SCH ×2 (04:24→05:08)
--- NOTE | 2018-05-26 07:14 | XR ---
EXAM DATE: 05/26/2018 6:58 AM EDT AGE/SEX: 72 years / Male INDICATIONS: Short of breath CLINICAL DATA: This is the patient's subsequent encounter. Patient reports that signs and symptoms h ave been present for 1 week and indicates a pain score of 0/10. MEDICAL/SURGICAL HISTORY: Leukemia. Hypertension. Diabetes. renal disease, cardiovascular di sease, chemo Coronary artery stent. Pacemaker. infusaport COMPARISON: [facility], CHEST 1V SINGLE AP, 05/23/2018. . FINDINGS: Bibasilar airspace disease greater on the right remains evident. Heart and mediastinal structures are stable. Cardiac pacemaker and [id number] are noted in place. CONCLUSION: No significant improvement. Persistent bibasilar airspace disease greater on the right. Electronically signed by: Rebel Wills MD 05/26/2018 7:12 AM EDT
[2018-05-26 07:21] LABS: Calcium 7.6 mg/dL (8.5-10.1); Carbon Dioxide 24.7 meq/L (21.0-32.0); Potassium 4.5 meq/L (3.5-5.1)
[2018-05-26 07:32] LABS: Activated Partial Thrombo Time 27.3 sec (24.3-30.1); INR 1.5 Ratio; Prothrombin Time 14.8 sec (9.8-11.6)
[2018-05-26] MEDS: Spironolactone 25 MG Tablet PO SCH ×2 (08:16→23:09)
[2018-05-26] MEDS: Furosemide 40 MG Tablet PO SCH (08:20)
[2018-05-26] MEDS: guaiFENesin 600 MG ER Tablet PO SCH ×2 (08:20→21:14)
[2018-05-26] MEDS: levoFLOXacin 250 MG Tablet PO SCH (08:20)
[2018-05-26] MEDS: Metoprolol Tartrate 25 MG Tablet PO SCH (08:20)
[2018-05-26] MEDS: Loratadine 10 MG Tablet PO SCH (08:20)
[2018-05-26] MEDS: Docusate Sodium 100 MG Capsule PO SCH ×2 (08:20→21:14)
[2018-05-26] MEDS: [UNRECOGNIZED DRUG - OTHER] PO SCH (09:30)
[2018-05-26] MEDS: IMATINIB PO SCH (09:30)
--- NOTE | 2018-05-26 11:31 | XR ---
EXAM DATE: 05/26/2018 11:16 AM EDT AGE/SEX: 72 years / Male INDICATIONS: Post right thoracentesis. Evaluate for pneumothorax. CLINICAL DATA: This is the patient's subsequent encounter. Patient reports that signs and symptoms h ave been present for 1 week and indicates a pain score of 7/10. MEDICAL/SURGICAL HISTORY: . Leukemia. Hypertension. Diabetes. Renal disease, cardiovascular di sease, chemo. . Coronary artery stent. Pacemaker. Infusaport. COMPARISON: [facility] [place] CHEST 1V SINGLE AP, 05/26/2018. . FINDINGS: A single frontal expiratory view of the chest was performed. No pneumothorax following right thoracen tesis. The right pleural effusion has decreased considerably in size. Cardiomegaly with pulmonary vas cular engorgement remains. Right basilar consolidation is less pronounced than on the prior study. Pa tient device overlies the left chest. Port-A-Cath overlies the right chest. CONCLUSION: No pneumothorax following right thoracentesis. Electronically signed by: Andrei Hi MD 05/26/2018 11:29 AM EDT
--- NOTE | 2018-05-26 11:52 | US ---
EXAM DATE: 05/26/2018 11:25 AM EDT AGE/SEX: 72 years / Male INDICATIONS: Difficulty breathing. Pleural effusion. CLINICAL DATA: This is the patient's initial encounter. Patient reports that signs and symptoms have been present for 4 - 6 days and indicates a pain score of 3/10. MEDICAL/SURGICAL HISTORY: Gastroesophageal reflux disease. Hypertension. Leukemia. Cirrhosis . Thyroid disease. Hyperlipidemia. Cholecystectomy. Tonsillectomy. Heart artery stent. COMPARISON: No prior exams available for comparison. FLUID: Total volume of 900 cc of clear, red fluid was removed. Fluid was discarded. Thoracentesis was therapeutic only. . . TECHNIQUE: Ultrasound guidance for thoracentesis. Thoracentesis. The risks, benefits, and alternatives to ultrasound guided thoracentesis were explained to the patien t in lay simple terms, including the risk of bleeding and infection. Written and verbal informed con sent was obtained. Appropriate area for right thoracentesis was marked under ultrasound guidance with the patient in the upright position. Overlying skin was prepped and draped in the usual sterile fashion and with local anesthetic, a dermatotomy was made with an 11 blade scalpel. A 6 [place] thoracentesis catheter was placed in the pleural space and fluid was removed. Catheter was then removed and a sterile dressing applied. There were no immediate complications. The patient tolerated the procedure well and the lef t the ultrasound suite in stable condition. Chest radiograph is to be obtained. CONCLUSION: 1. Uncomplicated right thoracentesis. Electronically signed by: Andrei Hi MD 05/26/2018 11:51 AM EDT
--- NOTE | 2018-05-26 12:35 | P.PNIM ---
Subjective Interval history: No new complaints. Pt is tolerating PO intake. No c/o n/v/d. Physical Exam Vital signs: 05/26/18 11:30 Temperature Pulse Rate 84 Respiratory Rate 18 Blood Pressure 107/56 L Pulse Oximetry 94 L Narrative: GENERAL: This is a well-nourished, well-developed patient, in no apparent distress. CARDIOVASCULAR: Regular rate and rhythm without murmurs, gallops, or rubs. RESPIRATORY: Clear to auscultation. Breath sounds equal bilaterally. No wheezes , rales, or rhonchi. GASTROINTESTINAL: Abdomen soft, non-tender, nondistended. Normal active bowel sounds MUSCULOSKELETAL: Extremities without clubbing, cyanosis, or edema. NEURO: Alert & Oriented x4 to person, place, time, situation. Moves all ext x4 Results - Labs CBC & Chem 7: 05/27/18 06:35 05/27/18 06:35 - Imaging Chest X-Ray 05/26/18 00:00 CONCLUSION: No pneumothorax following right thoracentesis. Chest X-Ray 05/26/18 06:00 CONCLUSION: No significant improvement. Persistent bibasilar airspace disease greater on the right. Thoracentesis Ultrasound 05/26/18 06:00 CONCLUSION: 1. Uncomplicated right thoracentesis. 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 fib with PPM, CAD with hx of [place] s/p stent x2, steatohepatitis with liver cirrhosis, recurrent ascites, esophageal varices and thyroid disease. - During pts recent admission pt was recommended by GI for TIPS procedure. - Patient was admitted to [facility] [place] on 05/22/18 after having TIPS procedure performed by IR. - ammonia level (05/24) 98 (05/25), 104 (05/26) - Continue current lactulose dose for now & repeat ammonia level in AM Recurrent Anemia GAVE - Pt was recently admitted from 05/15/18-05/16/18 for anemia and underwent Enteroscopy on (05/16) with Dr. 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 - H/H 8.1/23.3 (05/24) --> 6.6/19.6 (05/25) - Pt transfused additional 2 units PRBCs (05/25/18) - No active bleeding currently - Monitor labs Cough Post-nasal drip Chest wall pain Hx of pleural effusion - Pt complains of some cough and right sided rib pain when coughing or deep breathing for the last 4-5 days. - He states that he has had a lot of post-nasal drip and has been coughing up some yellow phlegm. - CXR (05/23/18) --> Moderate size right-sided effusion enlarging when compared with the prior study. Right basilar atelectasis. - Cont Claritin 10mg po daily and Mucinex - Cont Flonase - The case was discussed between Dr. Garcia and Dr. Avila on 05/23/18 and due to the extensive procedure that was performed for the TIPS radiology did not want to proceed with a thoracentesis at this time. We will re-evaluate on Saturday with an US to see if they pleural effusion is still large enough to drain at that time. - Duonebs added on 05/24 - Pt sounding more rhonchorus and congested throughout on 05/25, add in Solu- Medrol - Pt underwent right thoracentesis (05/26) 900ml fluid removed CML on Gleevac - Pt follows with Dr. Tran as an outpt A. fib with PPM CAD with hx of [place] - Home meds continued (2) Anemia Code(s): D64.9 - Anemia, unspecified Status: Acute (3) Hyperlipidemia Code(s): E78.5 - Hyperlipidemia, unspecified Status: Acute (4) GERD (gastroesophageal reflux disease) Code(s): K21.9 - Gastro-esophageal reflux disease without esophagitis Status: Acute (5) Thyroid disease Code(s): E07.9 - Disorder of thyroid, unspecified Status: Acute (6) HTN (hypertension) Code(s): I10 - Essential (primary) hypertension Status: Acute
[2018-05-26] MEDS ORDERED: Heparin Central Flush 100 UNIT/ML 5 ML Vial IV.FLUSH PRN ×2 (13:41)
[2018-05-26 15:27] LABS: Baso % (Auto) 0.1 % (0.0-2.0); Hematocrit 28.2 % (39.0-51.0); Hemoglobin 9.6 gm/dL (13.0-17.0); Lymph # (Auto) 0.2 th/mm3 (1.0-4.8); Lymph % (Auto) 2.4 % (9.0-44.0); Mean Corpuscular HGB Conc 34.1 % (32.0-36.0); Mean Corpuscular Hemoglobin 31.8 pg (27.0-34.0); Mean Corpuscular Volume 93.4 fL (80.0-100.0); Mean Platelet Volume 8.4 fL (7.0-11.0); Mono # (Auto) 0.5 th/mm3 (0.0-0.9); Mono % (Auto) 4.9 % (0.0-8.0); Neut # (Auto) 9.2 th/mm3 (1.8-7.7); Neut % (Auto) 92.6 % (16.0-70.0); Platelet Count 79 th/mm3 (150-450); Red Blood Count 3.02 mil/mm3 (4.50-5.90); Red Cell Distribution Width 18.2 % (11.6-17.2)
[2018-05-26] MEDS ORDERED: Lidocaine PF 1% Inj 5 ML Vial ONE ×2 (16:19)
[2018-05-26] MEDS ORDERED: Bisacodyl 10 MG Supp RECTAL PRN (18:32)
--- NOTE | 2018-05-26 19:49 | XR ---
EXAM DATE: 05/26/2018 7:31 PM EDT AGE/SEX: 72 years / Male INDICATIONS: Constipation. History of ascites status post multiple right upper paracentesis. CLINICAL DATA: This is the patient's subsequent encounter. Patient reports that signs and symptoms h ave been present for 1 week and indicates a pain score of 5/10. MEDICAL/SURGICAL HISTORY: . Leukemia. Hypertension. Diabetes. Renal disease, cardiovascular dis ease, chemo. . Coronary artery stent. Pacemaker. Infusaport. COMPARISON: [facility], [place] SMALL BOWEL SERIES - DOUBLE CONTRAST, 12/09/2014. . FINDINGS: 2 AP supine views of the abdomen and pelvis were obtained and demonstrate a moderate amount of stool in the colon. There is no free air or mass effect. Surgical clips are present in the right upper abd omen consistent with prior cholecystectomy. There is a faint curved structure projected over the righ t upper abdomen measuring up to approximately 1 cm in diameter. CONCLUSION: 1. Nonobstructive bowel gas pattern with moderate amount of stool. 2. Faint curved structure projected over the right upper abdomen of unclear significance. Electronically signed by: Sravan Muro MD 05/26/2018 7:48 PM EDT
[2018-05-26] MEDS: Temazepam 15 MG Capsule PO PRN (21:20)
[2018-05-27] MEDS: Levothyroxine 150 MCG Tablet PO SCH (06:02)
[2018-05-27 06:58] LABS: Eos % (Auto) 0.1 % (0.0-4.0); Hematocrit 26.7 % (39.0-51.0); Hemoglobin 9.1 gm/dL (13.0-17.0); Lymph # (Auto) 0.4 th/mm3 (1.0-4.8); Lymph % (Auto) 4.1 % (9.0-44.0); Mean Corpuscular HGB Conc 33.9 % (32.0-36.0); Mean Corpuscular Hemoglobin 31.5 pg (27.0-34.0); Mean Corpuscular Volume 92.8 fL (80.0-100.0); Mean Platelet Volume 8.1 fL (7.0-11.0); Mono # (Auto) 0.6 th/mm3 (0.0-0.9); Mono % (Auto) 6.4 % (0.0-8.0); Neut % (Auto) 89.4 % (16.0-70.0); Platelet Count 80 th/mm3 (150-450); Red Blood Count 2.88 mil/mm3 (4.50-5.90); Red Cell Distribution Width 17.5 % (11.6-17.2); White Blood Count 8.9 th/mm3 (4.0-11.0)
[2018-05-27 07:31] LABS: Calcium 7.9 mg/dL (8.5-10.1); Carbon Dioxide 26.6 meq/L (21.0-32.0); Potassium 4.6 meq/L (3.5-5.1)
[2018-05-27 08:15] LABS: Platelet Morphology Normal (Normal)
[2018-05-27] MEDS: Loratadine 10 MG Tablet PO SCH (09:51)
[2018-05-27] MEDS: Furosemide 40 MG Tablet PO SCH (09:51)
[2018-05-27] MEDS: levoFLOXacin 250 MG Tablet PO SCH (09:51)
[2018-05-27] MEDS: Metoprolol Tartrate 25 MG Tablet PO SCH (09:51)
[2018-05-27] MEDS: Docusate Sodium 100 MG Capsule PO SCH ×2 (09:51→20:49)
[2018-05-27] MEDS: [UNRECOGNIZED DRUG - OTHER] PO SCH (09:52)
[2018-05-27] MEDS: guaiFENesin 600 MG ER Tablet PO SCH ×2 (09:52→20:49)
[2018-05-27] MEDS: IMATINIB PO SCH (09:52)
[2018-05-27] MEDS: Spironolactone 25 MG Tablet PO SCH ×2 (09:52→17:31)
[2018-05-27] MEDS ORDERED: Sod Phosphate/Sod Biphosphate (Adult) Enema 133 ML Bottle RECTAL ONE (14:10)
--- NOTE | 2018-05-27 14:52 | P.PNIM ---
Subjective Interval history: Pt c/o constipation. Pt c/o urge to urinate but difficulty urinating. Pt c/o LE edema. Physical Exam Vital signs: 05/27/18 07:55 05/27/18 08:00 05/27/18 13:24 Temperature 98 F Pulse Rate 90 82 89 Respiratory Rate 16 18 16 Blood Pressure 117/56 L Pulse Oximetry 96 97 Narrative: GENERAL: This is a well-nourished, well-developed patient, in no apparent distress. CARDIOVASCULAR: Regular rate and rhythm without murmurs, gallops, or rubs. RESPIRATORY: Clear to auscultation. Breath sounds equal bilaterally. No wheezes , rales, or rhonchi. GASTROINTESTINAL: Abdomen soft, non-tender, nondistended. Normal active bowel sounds MUSCULOSKELETAL: Extremities without clubbing, cyanosis, or edema. NEURO: Alert & Oriented x4 to person, place, time, situation. Moves all ext x4 - Urinary Catheter Management Indwelling Urethral Catheter Cath placed during this visit: yes Reason for continuing: Acute urinary retention Insertion date: 05/27/18 Insertion time: 15:05 Results - Labs CBC & Chem 7: 05/28/18 05:10 05/28/18 05:10 - Imaging TIPS 05/22/18 00:00 CONCLUSION: 1. Uncomplicated TIPS placement and coil embolization of a dominant gastric varix, as above. 2. PLAN: Baseline ultrasound examination in 2 weeks with surveillance ultrasound at 3 months, 6 months and one year. Abdomen X-Ray 05/26/18 00:00 CONCLUSION: 1. Nonobstructive bowel gas pattern with moderate amount of stool. 2. Faint curved structure projected over the right upper abdomen of unclear significance. Chest X-Ray 05/26/18 06:00 CONCLUSION: No significant improvement. Persistent bibasilar airspace disease greater on the right. Thoracentesis Ultrasound 05/26/18 06:00 CONCLUSION: 1. Uncomplicated right thoracentesis. 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 fib with PPM, CAD with hx of [place] s/p stent x2, steatohepatitis with liver cirrhosis, recurrent ascites, esophageal varices and thyroid disease. - During pts recent admission pt was recommended by GI for TIPS procedure. - Patient was admitted to [facility] [place] on 05/22/18 after having TIPS procedure performed by IR. - ammonia level (05/24) 98 (05/25), 104 (05/26), 49 (05/27) - Continue current lactulose dose for now & repeat ammonia level in AM - obtain repeat paracentesis, if enough recurrent ascites present on US Recurrent Anemia GAVE - Pt was recently admitted from 05/15/18-05/16/18 for anemia and underwent Enteroscopy on (05/16) with Dr. 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 - H/H 8.1/23.3 (05/24) --> 6.6/19.6 (05/25) - Pt transfused additional 2 units PRBCs (05/25/18), 9.1 (05/27) - No active bleeding currently - Monitor labs Cough Post-nasal drip Chest wall pain Hx of pleural effusion - Pt complains of some cough and right sided rib pain when coughing or deep breathing for the last 4-5 days. - He states that he has had a lot of post-nasal drip and has been coughing up some yellow phlegm. - CXR (05/23/18) --> Moderate size right-sided effusion enlarging when compared with the prior study. Right basilar atelectasis. - claritin, mucinex, flonase, duonebs - Pt underwent right thoracentesis (05/26) 900ml fluid removed CML on Gleevac - Pt follows with Dr. Tran as an outpt A. fib with PPM CAD with hx of [place] - Home meds continued Edema - pt with liver cirrhosis - continue current PO aldactone & lasix - IV lasix 40mg x once Bladder retention? - obtain bladder scan constipation - enema x one - encourage ambulation - observe (2) Anemia Code(s): D64.9 - Anemia, unspecified Status: Acute (3) Hyperlipidemia Code(s): E78.5 - Hyperlipidemia, unspecified Status: Acute (4) GERD (gastroesophageal reflux disease) Code(s): K21.9 - Gastro-esophageal reflux disease without esophagitis Status: Acute (5) Thyroid disease Code(s): E07.9 - Disorder of thyroid, unspecified Status: Acute (6) HTN (hypertension) Code(s): I10 - Essential (primary) hypertension Status: Acute
[2018-05-27] MEDS: Temazepam 15 MG Capsule PO PRN (23:02)
[2018-05-28 05:34] LABS: Baso % (Auto) 0.1 % (0.0-2.0); Eos # (Auto) 0.1 th/mm3 (0.0-0.4); Eos % (Auto) 1.5 % (0.0-4.0); Hematocrit 27.5 % (39.0-51.0); Hemoglobin 9.3 gm/dL (13.0-17.0); Lymph # (Auto) 0.5 th/mm3 (1.0-4.8); Lymph % (Auto) 7.1 % (9.0-44.0); Mean Corpuscular HGB Conc 33.8 % (32.0-36.0); Mean Corpuscular Hemoglobin 31.8 pg (27.0-34.0); Mean Corpuscular Volume 94.2 fL (80.0-100.0); Mean Platelet Volume 7.8 fL (7.0-11.0); Mono # (Auto) 0.7 th/mm3 (0.0-0.9); Mono % (Auto) 9.4 % (0.0-8.0); Neut # (Auto) 6.3 th/mm3 (1.8-7.7); Neut % (Auto) 81.9 % (16.0-70.0); Platelet Count 80 th/mm3 (150-450); Red Blood Count 2.92 mil/mm3 (4.50-5.90); Red Cell Distribution Width 18.1 % (11.6-17.2); White Blood Count 7.7 th/mm3 (4.0-11.0)
[2018-05-28 06:01] LABS: Calcium 7.9 mg/dL (8.5-10.1); Carbon Dioxide 31.1 meq/L (21.0-32.0); Magnesium 2.2 mg/dL (1.5-2.5); Potassium 4.8 meq/L (3.5-5.1)
[2018-05-28] MEDS: Levothyroxine 150 MCG Tablet PO SCH (06:02)
[2018-05-28 07:00] LABS: Platelet Morphology Normal (Normal)
--- NOTE | 2018-05-28 08:17 | US ---
EXAM DATE: 05/28/2018 8:10 AM EDT AGE/SEX: 72 years / Male INDICATIONS: Ascites. CLINICAL DATA: This is the patient's initial encounter. Patient reports that signs and symptoms have been present for 1 day and indicates a pain score of 0/10. MEDICAL/SURGICAL HISTORY: Hypertension. Cirrhosis. GERD. Hyperlipidemia. Leukemia. Thyroid Dis ease. Cholecystectomy. Thyroidectomy. Heart Artery Stent. COMPARISON: [facility] [place] PARACENTESIS ABD W/IMAGE, 05/16/2018. . FINDINGS: Masses: None Fluid Collections: Trace amount of ascites. Other: Heterogeneous hepatic echotexture and right pleural effusion noted. CONCLUSION: Minimal ascites. Electronically signed by: Rebel Wills MD 05/28/2018 8:16 AM EDT
[2018-05-28] MEDS: Docusate Sodium 100 MG Capsule PO SCH ×2 (08:32→20:16)
[2018-05-28] MEDS: levoFLOXacin 250 MG Tablet PO SCH (08:32)
[2018-05-28] MEDS: Furosemide 40 MG Tablet PO SCH (08:32)
[2018-05-28] MEDS: guaiFENesin 600 MG ER Tablet PO SCH ×2 (08:32→20:16)
[2018-05-28] MEDS: Metoprolol Tartrate 25 MG Tablet PO SCH (08:33)
[2018-05-28] MEDS: Loratadine 10 MG Tablet PO SCH (08:33)
[2018-05-28] MEDS: [UNRECOGNIZED DRUG - OTHER] PO SCH (08:53)
[2018-05-28] MEDS: IMATINIB PO SCH (08:53)
[2018-05-28] MEDS: Spironolactone 25 MG Tablet PO SCH ×2 (08:53→17:12)
--- NOTE | 2018-05-28 15:10 | P.PNIM ---
Subjective Interval history: Pt required placement of alejandro catheter overnight for urinary retention. Pt c/o continued b/l leg edema. Physical Exam Vital signs: 05/28/18 08:00 05/28/18 10:28 05/28/18 12:00 Temperature 97.4 F L 98.2 F Pulse Rate 87 85 90 Respiratory Rate 16 16 16 Blood Pressure 112/57 L 132/58 L Pulse Oximetry 96 99 Narrative: GENERAL: This is a well-nourished, well-developed patient, in no apparent distress. CARDIOVASCULAR: Regular rate and rhythm without murmurs, gallops, or rubs. RESPIRATORY: Clear to auscultation. Breath sounds equal bilaterally. No wheezes , rales, or rhonchi. GASTROINTESTINAL: Abdomen soft, non-tender, nondistended. Normal active bowel sounds MUSCULOSKELETAL: 2+ LE x b/l NEURO: Alert & Oriented x4 to person, place, time, situation. Moves all ext x4 - Urinary Catheter Management Indwelling Urethral Catheter Cath placed during this visit: yes Reason for continuing: Acute urinary retention Insertion date: 05/27/18 Insertion time: 15:05 Results - Labs CBC & Chem 7: 05/28/18 05:10 05/28/18 05:10 - Imaging TIPS 05/22/18 00:00 CONCLUSION: 1. Uncomplicated TIPS placement and coil embolization of a dominant gastric varix, as above. 2. PLAN: Baseline ultrasound examination in 2 weeks with surveillance ultrasound at 3 months, 6 months and one year. Chest X-Ray 05/23/18 11:56 CONCLUSION: Moderate size right-sided effusion enlarging when compared with the prior study. Right basilar atelectasis. Abdomen X-Ray 05/26/18 00:00 CONCLUSION: 1. Nonobstructive bowel gas pattern with moderate amount of stool. 2. Faint curved structure projected over the right upper abdomen of unclear significance. Chest X-Ray 05/26/18 00:00 CONCLUSION: No pneumothorax following right thoracentesis. Chest X-Ray 05/26/18 06:00 CONCLUSION: No significant improvement. Persistent bibasilar airspace disease greater on the right. Thoracentesis Ultrasound 05/26/18 06:00 CONCLUSION: 1. Uncomplicated right thoracentesis. Abdomen Ultrasound 05/28/18 00:00 CONCLUSION: Minimal ascites. 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 fib with PPM, CAD with hx of [place] s/p stent x2, steatohepatitis with liver cirrhosis, recurrent ascites, esophageal varices and thyroid disease. - During pts recent admission pt was recommended by GI for TIPS procedure. - Patient was admitted [place] [facility] [place]22/18 after having TIPS procedure performed by IR. - ammonia level (05/24) 98 (05/25), 104 (05/26), 49 (05/27), 81 (05/28) - increase lactulose to 30ml BID - repeat ammonia level in AM - pt with recurrent abdominal ascites - repeat abd US (05/28) - NOT enough ascitic fluid present for paracentesis - continue PT - anticipate d/c to home in the next 1-2 days with [facility] & home PT - Pt's [id number], Vikci ANTHONY, updated by phone at the bedside (05/28) Recurrent Anemia GAVE - Pt was recently admitted from 05/15/18-05/16/18 for anemia and underwent Enteroscopy on (05/16) with Dr. 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 - H/H 8.1/23.3 (05/24) --> 6.6/19.6 (05/25) - Pt transfused additional 2 units PRBCs (05/25/18), 9.1 (05/27), 9.3 (05/28) - No active bleeding currently - Monitor labs Cough Post-nasal drip Chest wall pain Hx of pleural effusion - Pt complains of some cough and right sided rib pain when coughing or deep breathing for the last 4-5 days. - He states that he has had a lot of post-nasal drip and has been coughing up some yellow phlegm. - CXR (05/23/18) --> Moderate size right-sided effusion enlarging when compared with the prior study. Right basilar atelectasis. - claritin, mucinex, flonase, duonebs - Pt underwent right thoracentesis (05/26) 900ml fluid removed CML on Gleevac - Pt follows with Dr. Tran as an outpt A. fib with PPM CAD with hx of [place] - Home meds continued Edema - pt with liver cirrhosis - continue current PO aldactone & lasix - IV lasix 80mg x once - observe Bladder retention? - alejandro catheter - start flomax - f/u with Urology outpt constipation - improving - encourage ambulation - observe (2) Anemia Code(s): D64.9 - Anemia, unspecified Status: Acute (3) Hyperlipidemia Code(s): E78.5 - Hyperlipidemia, unspecified Status: Acute (4) GERD (gastroesophageal reflux disease) Code(s): K21.9 - Gastro-esophageal reflux disease without esophagitis Status: Acute (5) Thyroid disease Code(s): E07.9 - Disorder of thyroid, unspecified Status: Acute (6) HTN (hypertension) Code(s): I10 - Essential (primary) hypertension Status: Acute
[2018-05-28] MEDS: Temazepam 15 MG Capsule PO PRN (21:32)
[2018-05-29] MEDS: Levothyroxine 150 MCG Tablet PO SCH (05:50)
[2018-05-29 06:53] LABS: Baso % (Auto) 0.3 % (0.0-2.0); Eos # (Auto) 0.2 th/mm3 (0.0-0.4); Eos % (Auto) 2.5 % (0.0-4.0); Hematocrit 25.8 % (39.0-51.0); Hemoglobin 8.7 gm/dL (13.0-17.0); Lymph # (Auto) 0.5 th/mm3 (1.0-4.8); Lymph % (Auto) 8.5 % (9.0-44.0); Mean Corpuscular HGB Conc 33.8 % (32.0-36.0); Mean Corpuscular Hemoglobin 31.8 pg (27.0-34.0); Mono # (Auto) 0.6 th/mm3 (0.0-0.9); Mono % (Auto) 10.2 % (0.0-8.0); Neut # (Auto) 4.9 th/mm3 (1.8-7.7); Neut % (Auto) 78.5 % (16.0-70.0); Platelet Count 63 th/mm3 (150-450); Red Blood Count 2.74 mil/mm3 (4.50-5.90); Red Cell Distribution Width 17.5 % (11.6-17.2); White Blood Count 6.2 th/mm3 (4.0-11.0)
[2018-05-29 07:18] LABS: Calcium 7.4 mg/dL (8.5-10.1); Carbon Dioxide 31.4 meq/L (21.0-32.0); Potassium 4.2 meq/L (3.5-5.1)
[2018-05-29 07:47] LABS: Total Protein 4.2 g/dL (6.4-8.2)
[2018-05-29 07:52] LABS: Platelet Morphology Normal (Normal)
[2018-05-29] MEDS: IMATINIB PO SCH (08:38)
[2018-05-29] MEDS: [UNRECOGNIZED DRUG - OTHER] PO SCH (08:38)
[2018-05-29] MEDS: Metoprolol Tartrate 25 MG Tablet PO SCH (08:39)
[2018-05-29] MEDS: Furosemide 40 MG Tablet PO SCH (08:39)
[2018-05-29] MEDS: guaiFENesin 600 MG ER Tablet PO SCH ×2 (08:39→22:15)
[2018-05-29] MEDS: levoFLOXacin 250 MG Tablet PO SCH (08:39)
[2018-05-29] MEDS: Docusate Sodium 100 MG Capsule PO SCH ×2 (08:40→22:08)
[2018-05-29] MEDS: Loratadine 10 MG Tablet PO SCH (08:44)
[2018-05-29] MEDS: Spironolactone 25 MG Tablet PO SCH ×2 (08:44→17:27)
--- NOTE | 2018-05-29 11:55 | P.PNIM ---
Subjective Interval history: Follow up: Liver Cirrhosis, Steatohepatitis, Recurrent ascites, Portal gastropathy, Recurrent Anemia, GAVE, Cough and CML on Gleevac Patient reports worsening cough today, unable to produce sputum Patient reports other than his cough he is feeling well Physical Exam Vital signs: Vital Signs 05/28/18 12:00 05/28/18 16:00 05/28/18 20:00 Temperature 98.2 F 98.3 F 98.5 F Pulse Rate 90 90 86 Respiratory Rate 16 16 17 Blood Pressure 132/58 L 131/62 117/53 L Pulse Oximetry 99 97 98 05/29/18 00:00 05/29/18 08:00 05/29/18 11:25 Temperature 98.1 F 97.3 F L 98.0 F Pulse Rate 86 84 73 Respiratory Rate 17 18 18 Blood Pressure 115/63 124/57 L 100/51 L Pulse Oximetry 95 97 97 05/29/18 11:28 Temperature Pulse Rate Respiratory Rate 18 Blood Pressure Pulse Oximetry Intake & Output 05/28/18 05/29/18 05/29/18 18:59 06:59 18:59 Intake Total 850 / 850 Output Total 2500 / 2500 Balance 850 / 850 -2500 / -2500 Weight 87.2 kg Intake: Oral 850 / 850 Output: Urine 2500 / 2500 Other: # Voids 2 Date of Last Bowel Movement 05/26/18 05/28/18 # Bowel Movements 1 2 Narrative: GENERAL: This is a well-nourished, well-developed patient, in no apparent distress. CARDIOVASCULAR: Regular rate and rhythm without murmurs, gallops, or rubs. RESPIRATORY: rhonchi through out bilaterally GASTROINTESTINAL: Abdomen soft, non-tender, nondistended. Normal active bowel sounds MUSCULOSKELETAL: 2+ LE x b/l NEURO: Alert & Oriented x4 to person, place, time, situation. Moves all ext x4 - Urinary Catheter Management Indwelling Urethral Catheter Cath placed during this visit: yes Reason for continuing: Acute urinary retention Insertion date: 05/27/18 Insertion time: 15:05 Results - Labs CBC & Chem 7: 05/30/18 08:03 05/31/18 06:45 Laboratory Results - last 24 hr 05/29/18 05/29/18 05/29/18 05:50 05:50 05:50 WBC 6.2 RBC 2.74 L Hgb 8.7 L Hct 25.8 L MCV 94.0 MCH 31.8 MCHC 33.8 RDW 17.5 H Plt Count 63 L MPV 8.0 Prelim Diff (Auto) Slide review pending Neut % (Auto) 78.5 H Lymph % (Auto) 8.5 L [place] % (Auto) 10.2 H Eos % (Auto) 2.5 Baso % (Auto) 0.3 Neut # (Auto) 4.9 Lymph # (Auto) 0.5 L [place] # (Auto) 0.6 Eos # (Auto) 0.2 Baso # (Auto) 0.0 WBC Differential . Diff Scan Auto diff confirmed Differential Comment . Platelet Estimate Low L Platelet Morphology Normal Sodium 141 Potassium 4.2 Chloride 102 Carbon Dioxide 31.4 Anion Gap 8 BUN 46 H Creatinine 2.22 H Estimated GFR 29 L Random Glucose 82 Calcium 7.4 L* Prot Corrected Calcium 9.1 Magnesium 2.0 Ammonia 65 H Total Protein 4.2 L Assessment and Plan - Assessment (1) Liver cirrhosis Code(s): K74.60 - Unspecified cirrhosis of liver Status: Acute Plan: Liver Cirrhosis Steatohepatitis Recurrent ascites Portal gastropathy - Pt is a 72-year-old male with a history of mild Alzheimer's, GAVE with recurrent anemia requiring frequent transfusions, CML on Gleevec, [place]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 fib with PPM, CAD with hx of [place] s/p stent x2, steatohepatitis with liver cirrhosis, recurrent ascites, esophageal varices and thyroid disease. - During pts recent admission pt was recommended by GI for TIPS procedure. - Patient was admitted to [facility] [place] on 05/22/18 after having TIPS procedure performed by IR. - ammonia level (05/24) 98 (05/25), 104 (05/26), 49 (05/27), 81 (05/28) - increase lactulose to 30ml BID - repeat ammonia level in AM - pt with recurrent abdominal ascites - repeat abd US (05/28) - NOT enough ascitic fluid present for paracentesis - continue PT - anticipate d/c to home in the next 1-2 days with [facility] & home PT - Pt's [id number], Vicki CRUZ, updated by phone at the bedside (05/28) Recurrent Anemia GAVE - Pt was recently admitted from 05/15/18-05/16/18 for anemia and underwent Enteroscopy on (05/16) with Dr. 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 - H/H 8.1/23.3 (05/24) --> 6.6/19.6 (05/25) - Pt transfused additional 2 units PRBCs (05/25/18), 9.1 (05/27), 9.3 (05/28), 8.7 ( 05/29) - No active bleeding currently - Monitor labs Cough Post-nasal drip Chest wall pain Hx of pleural effusion - Pt complains of some cough and right sided rib pain when coughing or deep breathing for the last 4-5 days. - He states that he has had a lot of post-nasal drip and has been coughing up some yellow phlegm. - CXR (05/23/18) --> Moderate size right-sided effusion enlarging when compared with the prior study. Right basilar atelectasis. - claritin, mucinex, flonase, duonebs - Pt underwent right thoracentesis (05/26) 900ml fluid removed - (05/29) cough worsening today patient feels as though he is unable to bring anything up. - CT chest to further evaluate recurrent pleural effusion vs pna - change PO lasix to 40 mg IV BID - recheck CBC and BMP in AM CML on Gleevac - Pt follows with Dr. Tran as an outpt A. fib with PPM CAD with hx of [place] - Home meds continued Edema - pt with liver cirrhosis - continue current PO aldactone - change PO lasix to 40 mg IV BID - recheck CBC and BMP in AM - observe Bladder retention? - alejandro catheter - continue flomax - f/u with Urology outpt constipation - improving - encourage ambulation - observe (2) Anemia Code(s): D64.9 - Anemia, unspecified Status: Acute (3) Hyperlipidemia Code(s): E78.5 - Hyperlipidemia, unspecified Status: Acute (4) GERD (gastroesophageal reflux disease) Code(s): K21.9 - Gastro-esophageal reflux disease without esophagitis Status: Acute (5) Thyroid disease Code(s): E07.9 - Disorder of thyroid, unspecified Status: Acute (6) HTN (hypertension) Code(s): I10 - Essential (primary) hypertension Status: Acute - Attending Attestation Patient examined. Assessment and plan formulated with Mel Crawford PA-C. Melodie agree with the above.
--- NOTE | 2018-05-29 17:34 | CT ---
EXAM DATE: 05/29/2018 5:28 PM EDT AGE/SEX: 72 years / Male INDICATIONS: Recent thoracentesis, now patient has recurrent cough. CLINICAL DATA: This is the patient's initial encounter. Patient reports that signs and symptoms have been present for 3 days and indicates a pain score of 4/10. MEDICAL/SURGICAL HISTORY: Gastroesophageal reflux disease. Hypertension. Leukemia. Cirrohsis, th roid disease. Cholecystectomy. Tonsillectomy. Coronary artery stent. RADIATION DOSE: 15.73 CTDI (mGy) COMPARISON: [facility], CT CHEST W/O CONTRAST, 05/06/2018. . TECHNIQUE: Multiple contiguous axial images were obtained through the chest without contrast. Image s were obtained in suspended respiration using multiple row detector helical technique. Using automa tanner exposure control and adjustment of the mA and/or kV according to patient size, radiation dose was kept as low as reasonably achievable to obtain optimal diagnostic quality images. DICOM format imag e data is available electronically for review and comparison. FINDINGS: Lungs: There is a tiny pneumothorax on the right. There is still a moderate size right pleural effus ion. There are some densely consolidated right lower lobe with numerous small calcification within th e lobe. The majority of the right lung is clear. The left lung shows a small pleural effusion. Mediastinum: There is extensive coronary atherosclerotic disease. There is a pacemaker in place. The heart is enlarged. Pleurae: Moderate size right pleural effusion and tiny left pleural effusion Axillae: Unremarkable. Bony Structures: Unremarkable. Miscellaneous: There is some fluid around the liver. The liver has a nodular appearance consistent w ith cirrhosis. There is a TIPS catheter in place. Embolization coil in the left posterior abdomen. CONCLUSION: 1. There is a very small right-sided pneumothorax. The right-sided pleural effusion remains moderate in size. Small pleural effusion on the left. 2. Pacemaker and small pericardial effusion. 3. Dense consolidative right lung with some parenchymal calcifications unchanged since April Electronically signed by: Mike Dee MD 05/29/2018 5:33 PM EDT
[2018-05-29] MEDS: Temazepam 15 MG Capsule PO PRN (22:19)
[2018-05-30] MEDS: Levothyroxine 150 MCG Tablet PO SCH (07:39)
[2018-05-30] MEDS: Docusate Sodium 100 MG Capsule PO SCH ×2 (08:05→20:08)
[2018-05-30] MEDS: Metoprolol Tartrate 25 MG Tablet PO SCH (08:05)
[2018-05-30] MEDS: levoFLOXacin 250 MG Tablet PO SCH (08:05)
[2018-05-30] MEDS: guaiFENesin 600 MG ER Tablet PO SCH ×2 (08:05→20:08)
[2018-05-30] MEDS: [UNRECOGNIZED DRUG - OTHER] PO SCH (08:06)
[2018-05-30] MEDS: Loratadine 10 MG Tablet PO SCH (08:06)
[2018-05-30] MEDS: IMATINIB PO SCH (08:06)
[2018-05-30] MEDS: Spironolactone 25 MG Tablet PO SCH ×2 (08:07→17:25)
[2018-05-30 08:28] LABS: Baso % (Auto) 0.2 % (0.0-2.0); Eos # (Auto) 0.2 th/mm3 (0.0-0.4); Eos % (Auto) 2.7 % (0.0-4.0); Hematocrit 26.3 % (39.0-51.0); Hemoglobin 8.9 gm/dL (13.0-17.0); Lymph # (Auto) 0.4 th/mm3 (1.0-4.8); Lymph % (Auto) 6.1 % (9.0-44.0); Mean Corpuscular HGB Conc 33.6 % (32.0-36.0); Mean Corpuscular Hemoglobin 31.7 pg (27.0-34.0); Mean Corpuscular Volume 94.4 fL (80.0-100.0); Mono # (Auto) 0.7 th/mm3 (0.0-0.9); Mono % (Auto) 9.5 % (0.0-8.0); Neut # (Auto) 5.8 th/mm3 (1.8-7.7); Neut % (Auto) 81.5 % (16.0-70.0); Platelet Count 60 th/mm3 (150-450); Red Blood Count 2.79 mil/mm3 (4.50-5.90); Red Cell Distribution Width 18.4 % (11.6-17.2); White Blood Count 7.1 th/mm3 (4.0-11.0)
[2018-05-30 08:52] LABS: Calcium 7.5 mg/dL (8.5-10.1); Carbon Dioxide 29.7 meq/L (21.0-32.0); Potassium 3.6 meq/L (3.5-5.1)
[2018-05-30 09:05] LABS: Platelet Morphology Normal (Normal)
--- NOTE | 2018-05-30 10:52 | XR ---
EXAM DATE: 05/30/2018 10:46 AM EDT AGE/SEX: 72 years / Male INDICATIONS: . Shortness of breath and chest pain. CLINICAL DATA: This is the patient's subsequent encounter. Patient reports that signs and symptoms h ave been present for 4 - 6 days and indicates a pain score of 3/10. MEDICAL/SURGICAL HISTORY: Hypertension. Gastroesophageal reflux disease. Leukemia. Pacemaker. Cholecystectomy. Thyroidectomy. Heart artery stent. Port. COMPARISON: [facility] [place] ONLY, 05/26/2018. . FINDINGS: Significant airspace disease remains evident in the right lung base. There is increasing opacity david g the right costophrenic angle indicative of reaccumulating pleural fluid. Left lung remains relatively clear. Heart and mediastinal structures are unchanged. Pacemaker is again noted CONCLUSION: Increasing right basilar opacity characteristic of reaccumulating pleural fluid Persistent right basilar airspace disease Electronically signed by: Rebel Wills MD 05/30/2018 10:51 AM EDT
--- NOTE | 2018-05-30 15:20 | P.PNIM ---
Subjective Interval history: Pt requesting that alejandro be removed. Less cough from yesterday. Still with lower extremity edema. Physical Exam Vital signs: 05/30/18 11:44 05/30/18 12:00 Temperature 98.0 F Pulse Rate 73 73 Respiratory Rate 19 18 Blood Pressure 114/56 L Pulse Oximetry 98 Narrative: GENERAL: This is a well-nourished, well-developed patient, in no apparent distress. CARDIOVASCULAR: Regular rate and rhythm without murmurs, gallops, or rubs. RESPIRATORY: crackles at right lung base GASTROINTESTINAL: Abdomen soft, non-tender, nondistended. Normal active bowel sounds MUSCULOSKELETAL: 2+ LE x b/l NEURO: Alert & Oriented x4 to person, place, time, situation. Moves all ext x4 - Urinary Catheter Management Indwelling Urethral Catheter Cath placed during this visit: yes, but has since been removed by the nurse Reason for continuing: Decision to DC catheter Insertion date: 05/27/18 Insertion time: 15:05 Removal date: 05/30/18 Removal time: 14:50 Results - Labs CBC & Chem 7: 05/30/18 08:03 05/30/18 08:03 - Imaging TIPS 05/22/18 00:00 CONCLUSION: 1. Uncomplicated TIPS placement and coil embolization of a dominant gastric varix, as above. 2. PLAN: Baseline ultrasound examination in 2 weeks with surveillance ultrasound at 3 months, 6 months and one year. Chest X-Ray 05/23/18 11:56 CONCLUSION: Moderate size right-sided effusion enlarging when compared with the prior study. Right basilar atelectasis. Abdomen X-Ray 05/26/18 00:00 CONCLUSION: 1. Nonobstructive bowel gas pattern with moderate amount of stool. 2. Faint curved structure projected over the right upper abdomen of unclear significance. Chest X-Ray 05/26/18 00:00 CONCLUSION: No pneumothorax following right thoracentesis. Chest X-Ray 05/26/18 06:00 CONCLUSION: No significant improvement. Persistent bibasilar airspace disease greater on the right. Thoracentesis Ultrasound 05/26/18 06:00 CONCLUSION: 1. Uncomplicated right thoracentesis. Abdomen Ultrasound 05/28/18 00:00 CONCLUSION: Minimal ascites. Chest CT 05/29/18 00:00 CONCLUSION: 1. There is a very small right-sided pneumothorax. The right-sided pleural effusion remains moderate in size. Small pleural effusion on the left. 2. Pacemaker and small pericardial effusion. 3. 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 fib with PPM, CAD with hx of [place] s/p stent x2, steatohepatitis with liver cirrhosis, recurrent ascites, esophageal varices and thyroid disease. - During pts recent admission pt was recommended by GI for TIPS procedure. - Patient was admitted to [facility] [place] on 05/22/18 after having TIPS procedure performed by IR. - ammonia level (05/24) 98 (05/25), 104 (05/26), 49 (05/27), 81 (05/28) - increase lactulose to 30ml BID - repeat ammonia level in AM - pt with recurrent abdominal ascites - repeat abd US (05/28) - NOT enough ascitic fluid present for paracentesis - continue PT - CXR (05/30) - right pleural effusion reaccumulating - 2+ edema at b/l LE - IV lasix, spironolactone. consider metolazone if NO clinical improvement - anticipate d/c to home 06/02/18 with [facility] & home PT - Pt's [id number], Vicki ANTHONY, son, and updated by phone at the bedside (05/30) - will repeat chest US 06/02 for consideration of repeat thoracentesis prior to discharge to home Recurrent Anemia GAVE - Pt was recently admitted from 05/15/18-05/16/18 for anemia and underwent Enteroscopy on (05/16) with Dr. 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 - H/H 8.1/23.3 (05/24) --> 6.6/19.6 (05/25) - Pt transfused additional 2 units PRBCs (05/25/18), 9.1 (05/27), 9.3 (05/28), 8.7 ( 05/29), 8.9 (05/30) - No active bleeding currently - Monitor labs Cough Post-nasal drip Chest wall pain Hx of pleural effusion - Pt complains of some cough and right sided rib pain when coughing or deep breathing for the last 4-5 days. - He states that he has had a lot of post-nasal drip and has been coughing up some yellow phlegm. - CXR (05/23/18) --> Moderate size right-sided effusion enlarging when compared with the prior study. Right basilar atelectasis. - claritin, mucinex, flonase, duonebs - Pt underwent right thoracentesis (05/26) 900ml fluid removed - (05/29) cough worsening today patient feels as though he is unable to bring anything up. - CT (05/29) tiny right apical pneumothorax, right pleural effusion - IV lasix to 40 mg IV BID - see above - monitor labs CML on Gleevac - Pt follows with Dr. Tran as an outpt A. fib with PPM CAD with hx of [place] - Home meds continued Edema - pt with liver cirrhosis - continue current PO aldactone -see above Bladder retention? - alejandro catheter - continue flomax - f/u with Urology outpt constipation - improving - encourage ambulation - observe (2) Anemia Code(s): D64.9 - Anemia, unspecified Status: Acute (3) Hyperlipidemia Code(s): E78.5 - Hyperlipidemia, unspecified Status: Acute (4) GERD (gastroesophageal reflux disease) Code(s): K21.9 - Gastro-esophageal reflux disease without esophagitis Status: Acute (5) Thyroid disease Code(s): E07.9 - Disorder of thyroid, unspecified Status: Acute (6) HTN (hypertension) Code(s): I10 - Essential (primary) hypertension Status: Acute
[2018-05-30] MEDS: Temazepam 15 MG Capsule PO PRN (21:59)
[2018-05-31] MEDS: Levothyroxine 150 MCG Tablet PO SCH (05:52)
[2018-05-31 07:30] LABS: Calcium 7.5 mg/dL (8.5-10.1); Carbon Dioxide 29.9 meq/L (21.0-32.0); Magnesium 2.2 mg/dL (1.5-2.5); Potassium 3.8 meq/L (3.5-5.1)
[2018-05-31] MEDS: Metoprolol Tartrate 25 MG Tablet PO SCH (09:44)
[2018-05-31] MEDS: Loratadine 10 MG Tablet PO SCH (09:45)
[2018-05-31] MEDS: IMATINIB PO SCH (09:45)
[2018-05-31] MEDS: [UNRECOGNIZED DRUG - OTHER] PO SCH (09:45)
[2018-05-31] MEDS: levoFLOXacin 250 MG Tablet PO SCH (09:45)
[2018-05-31] MEDS: Docusate Sodium 100 MG Capsule PO SCH ×2 (09:45→20:02)
[2018-05-31] MEDS: guaiFENesin 600 MG ER Tablet PO SCH ×2 (09:45→20:02)
[2018-05-31] MEDS: Spironolactone 25 MG Tablet PO SCH ×2 (09:50→17:48)
--- NOTE | 2018-05-31 14:56 | P.PNIM ---
Subjective Interval history: No new complaints. Pt is urinating without difficulty since removal of alejandro catheter. Pt ambulated in the hallway this afternoon with his . Physical Exam Vital signs: 05/31/18 08:00 05/31/18 12:00 Temperature 97.8 F 98.3 F Pulse Rate 72 72 Respiratory Rate 18 18 Blood Pressure 110/52 L 115/55 L Pulse Oximetry 98 98 Narrative: GENERAL: This is a well-nourished, well-developed patient, in no apparent distress. CARDIOVASCULAR: Regular rate and rhythm without murmurs, gallops, or rubs. RESPIRATORY: crackles at right lung base GASTROINTESTINAL: Abdomen soft, non-tender, nondistended. Normal active bowel sounds MUSCULOSKELETAL: 2+ LE x b/l NEURO: Alert & Oriented x4 to person, place, time, situation. Moves all ext x4 - Urinary Catheter Management Indwelling Urethral Catheter Cath placed during this visit: yes, but has since been removed by the nurse Reason for continuing: Decision to DC catheter Insertion date: 05/27/18 Insertion time: 15:05 Removal date: 05/30/18 Removal time: 14:50 Results - Labs CBC & Chem 7: 05/30/18 08:03 05/31/18 06:45 - Imaging TIPS 05/22/18 00:00 CONCLUSION: 1. Uncomplicated TIPS placement and coil embolization of a dominant gastric varix, as above. 2. PLAN: Baseline ultrasound examination in 2 weeks with surveillance ultrasound at 3 months, 6 months and one year. Abdomen X-Ray 05/26/18 00:00 CONCLUSION: 1. Nonobstructive bowel gas pattern with moderate amount of stool. 2. Faint curved structure projected over the right upper abdomen of unclear significance. Thoracentesis Ultrasound 05/26/18 06:00 1. Uncomplicated right thoracentesis. Abdomen Ultrasound 05/28/18 00:[address] 05/29/18 00:00 1. There is a very small right-sided pneumothorax. The right-sided pleural effusion remains moderate in size. Small pleural effusion on the left. 2. Pacemaker and small pericardial effusion. 3. 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 fib with PPM, CAD with hx of [place] s/p stent x2, steatohepatitis with liver cirrhosis, recurrent ascites, esophageal varices and thyroid disease. - During pts recent admission pt was recommended by GI for TIPS procedure. - Patient was admitted to [facility] [place] on 05/22/18 after having TIPS procedure performed by IR. - ammonia level (05/24) 98 (05/25), 104 (05/26), 49 (05/27), 81 (05/28) - increase lactulose to 30ml BID - repeat ammonia level in AM - pt with recurrent abdominal ascites - repeat abd US (05/28) - NOT enough ascitic fluid present for paracentesis - continue PT - CXR (05/30) - right pleural effusion reaccumulating - 2+ edema at b/l LE - Creatinine rising 2.39 (05/30), 2.54 (05/31) - hold IV lasix, last dose in AM (05/31) - continue spironolactone - trial of support stockings - repeat BMP in AM - anticipate d/c to home saturday/saturday with [facility] & home PT - will repeat chest US 06/02 for consideration of repeat thoracentesis prior to discharge to home - Case d/w pt & at the bedside 05/31/18 Recurrent Anemia GAVE - Pt was recently admitted from 05/15/18-05/16/18 for anemia and underwent Enteroscopy on (05/16) with Dr. 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 - H/H 8.1/23.3 (05/24) --> 6.6/19.6 (05/25) - Pt transfused additional 2 units PRBCs (05/25/18), 9.1 (05/27), 9.3 (05/28), 8.7 ( 05/29), 8.9 (05/30) - No active bleeding currently - Monitor labs Cough Post-nasal drip Chest wall pain Hx of pleural effusion - Pt complains of some cough and right sided rib pain when coughing or deep breathing for the last 4-5 days. - He states that he has had a lot of post-nasal drip and has been coughing up some yellow phlegm. - CXR (05/23/18) --> Moderate size right-sided effusion enlarging when compared with the prior study. Right basilar atelectasis. - claritin, mucinex, flonase, duonebs - Pt underwent right thoracentesis (05/26) 900ml fluid removed - (05/29) cough worsening today patient feels as though he is unable to bring anything up. - CT (05/29) tiny right apical pneumothorax, right pleural effusion - IV lasix to 40 mg IV BID - see above - monitor labs CML on Gleevac - Pt follows with Dr. Tran as an outpt A. fib with PPM CAD with hx of [place] - Home meds continued Edema - pt with liver cirrhosis - continue current PO aldactone -see above Bladder retention? - alejandro catheter removed (05/30) - continue flomax - f/u with Urology outpt constipation - improving - encourage ambulation - observe (2) Anemia Code(s): D64.9 - Anemia, unspecified Status: Acute (3) Hyperlipidemia Code(s): E78.5 - Hyperlipidemia, unspecified Status: Acute (4) GERD (gastroesophageal reflux disease) Code(s): K21.9 - Gastro-esophageal reflux disease without esophagitis Status: Acute (5) Thyroid disease Code(s): E07.9 - Disorder of thyroid, unspecified Status: Acute (6) HTN (hypertension) Code(s): I10 - Essential (primary) hypertension Status: Acute
[2018-05-31] MEDS: Temazepam 15 MG Capsule PO PRN (21:49)
[2018-06-01] MEDS: Levothyroxine 150 MCG Tablet PO SCH (06:30)
[2018-06-01 07:04] LABS: Baso % (Auto) 0.2 % (0.0-2.0); Eos # (Auto) 0.2 th/mm3 (0.0-0.4); Eos % (Auto) 3.1 % (0.0-4.0); Hematocrit 25.3 % (39.0-51.0); Hemoglobin 8.6 gm/dL (13.0-17.0); Lymph # (Auto) 0.7 th/mm3 (1.0-4.8); Lymph % (Auto) 8.5 % (9.0-44.0); Mean Corpuscular HGB Conc 34.1 % (32.0-36.0); Mean Corpuscular Hemoglobin 31.7 pg (27.0-34.0); Mean Corpuscular Volume 93.1 fL (80.0-100.0); Mean Platelet Volume 8.3 fL (7.0-11.0); Mono # (Auto) 0.8 th/mm3 (0.0-0.9); Mono % (Auto) 10.9 % (0.0-8.0); Neut % (Auto) 77.3 % (16.0-70.0); Platelet Count 77 th/mm3 (150-450); Red Blood Count 2.72 mil/mm3 (4.50-5.90); White Blood Count 7.7 th/mm3 (4.0-11.0)
[2018-06-01 07:30] LABS: Albumin 1.8 g/dL (3.4-5.0); Calcium 7.3 mg/dL (8.5-10.1); Carbon Dioxide 28.8 meq/L (21.0-32.0); Total Protein 4.8 g/dL (6.4-8.2)
[2018-06-01] MEDS: IMATINIB PO SCH (08:42)
[2018-06-01] MEDS: levoFLOXacin 250 MG Tablet PO SCH (08:42)
[2018-06-01] MEDS: Loratadine 10 MG Tablet PO SCH (08:42)
[2018-06-01] MEDS: Docusate Sodium 100 MG Capsule PO SCH ×2 (08:42→20:36)
[2018-06-01] MEDS: guaiFENesin 600 MG ER Tablet PO SCH ×2 (08:42→20:37)
[2018-06-01] MEDS: [UNRECOGNIZED DRUG - OTHER] PO SCH (08:42)
[2018-06-01] MEDS: Metoprolol Tartrate 25 MG Tablet PO SCH (08:42)
[2018-06-01] MEDS: Spironolactone 25 MG Tablet PO SCH ×2 (08:51→18:05)
--- NOTE | 2018-06-01 14:41 | P.PNIM ---
Subjective Interval history: No new complaints. Physical Exam Vital signs: 05/31/18 20:00 06/01/18 00:00 06/01/18 08:00 Temperature 98.6 F 98.3 F 98.1 F Pulse Rate 77 94 H Respiratory Rate 18 18 Blood Pressure 106/52 L 119/58 L 104/55 L Pulse Oximetry 97 97 96 Narrative: GENERAL: This is a well-nourished, well-developed patient, in no apparent distress. CARDIOVASCULAR: Regular rate and rhythm without murmurs, gallops, or rubs. RESPIRATORY: rhonchi through out bilaterally GASTROINTESTINAL: Abdomen soft, non-tender, nondistended. Normal active bowel sounds MUSCULOSKELETAL: 2+ LE x b/l NEURO: Alert & Oriented x4 to person, place, time, situation. Moves all ext x4 - Urinary Catheter Management Indwelling Urethral Catheter Cath placed during this visit: yes, but has since been removed by the nurse Reason for continuing: Acute urinary retention Insertion date: 05/27/18 Insertion time: 15:05 Removal date: 05/30/18 Removal time: 14:50 Results - Labs CBC & Chem 7: 06/01/18 06:40 06/01/18 06:40 - Imaging TIPS 05/22/18 00:00 1. Uncomplicated TIPS placement and coil embolization of a dominant gastric varix, as above. 2. PLAN: Baseline ultrasound examination in 2 weeks with surveillance ultrasound at 3 months, 6 months and one year. Chest X-Ray 05/23/18 11:56 Moderate size right-sided effusion enlarging when compared with the prior study. Right basilar atelectasis. Abdomen X-Ray 05/26/18 00:00 1. Nonobstructive bowel gas pattern with moderate amount of stool. 2. Faint curved structure projected over the right upper abdomen of unclear significance. Thoracentesis Ultrasound 05/26/18 06:00 1. Uncomplicated right thoracentesis. Abdomen Ultrasound 05/28/18 00:[address] 05/29/18 00:00 CONCLUSION: 1. There is a very small right-sided pneumothorax. The right-sided pleural effusion remains moderate in size. Small pleural effusion on the left. 2. Pacemaker and small pericardial effusion. 3. 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 fib with PPM, CAD with hx of [place] s/p stent x2, steatohepatitis with liver cirrhosis, recurrent ascites, esophageal varices and thyroid disease. - During pts recent admission pt was recommended by GI for TIPS procedure. - [place] [facility] [place] having TIPS procedure performed by IR. - ammonia level (05/24) 98 (05/25), 104 (05/26), 49 (05/27), 81 (05/28) - increase lactulose to 30ml BID - repeat ammonia level in AM - pt with recurrent abdominal ascites - repeat abd US (05/28) - NOT enough ascitic fluid present for paracentesis - continue PT - anticipate d/c to home in the next 1-2 days with [facility] & home PT - repeat right thoracentesis (06/02) Recurrent Anemia GAVE - Pt was recently admitted from 05/15/18-05/16/18 for anemia and underwent Enteroscopy on (05/16) with Dr. 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 - H/H 8.1/23.3 (05/24) --> 6.6/19.6 (05/25) - Pt transfused additional 2 units PRBCs (05/25/18), 9.1 (05/27), 9.3 (05/28), 8.7 ( 05/29), 8.6 (06/01) - No active bleeding currently - Monitor labs Cough Post-nasal drip Chest wall pain Hx of pleural effusion - Pt complains of some cough and right sided rib pain when coughing or deep breathing for the last 4-5 days. - He states that he has had a lot of post-nasal drip and has been coughing up some yellow phlegm. - CXR (05/23/18) --> Moderate size right-sided effusion enlarging when compared with the prior study. Right basilar atelectasis. - claritin, mucinex, flonase, duonebs - Pt underwent right thoracentesis (05/26) 900ml fluid removed - (05/29) cough worsening today patient feels as though he is unable to bring anything up. - cough improved - see above CML on Gleevac - Pt follows with Dr. Tran as an outpt A. fib with PPM CAD with hx of [place] - Home meds continued Edema - pt with liver cirrhosis - continue current PO aldactone - creatinine with some improvement 2.37 (06/01) - resume IV lasix 06/01 - repeat BMP in AM - support stockings ordered - observe Bladder retention - alejandro catheter removed - continue flomax - f/u with Urology outpt constipation - improved - encourage ambulation - observe (2) Anemia Code(s): D64.9 - Anemia, unspecified Status: Acute (3) Hyperlipidemia Code(s): E78.5 - Hyperlipidemia, unspecified Status: Acute (4) GERD (gastroesophageal reflux disease) Code(s): K21.9 - Gastro-esophageal reflux disease without esophagitis Status: Acute (5) Thyroid disease Code(s): E07.9 - Disorder of thyroid, unspecified Status: Acute (6) HTN (hypertension) Code(s): I10 - Essential (primary) hypertension Status: Acute
[2018-06-01 16:25] LABS: INR 1.4 Ratio; Prothrombin Time 13.7 sec (9.8-11.6)
[2018-06-01] MEDS: Temazepam 15 MG Capsule PO PRN (20:44)
[2018-06-02] MEDS: Levothyroxine 150 MCG Tablet PO SCH (06:01)
--- NOTE | 2018-06-02 09:18 | P.PNIM ---
Subjective Interval history: follow up: Liver Cirrhosis, Recurrent ascites, s/p TIPS, pleural effusion, CML on Gleevac Patient reports feeling good today endorses right sided back pain similar to how he felt prior to last thoracentesis denies SOB Physical Exam Vital signs: Vital Signs 06/01/18 12:00 06/01/18 15:48 06/01/18 15:50 Temperature 98.4 F Pulse Rate 76 87 Respiratory Rate 18 18 Blood Pressure 111/56 L Pulse Oximetry 97 96 06/01/18 16:00 06/01/18 19:54 06/01/18 20:00 Temperature 98.2 F 98 F Pulse Rate 98 H 98 H 84 Respiratory Rate 18 16 18 Blood Pressure 111/53 L 96/46 L Pulse Oximetry 97 96 06/02/18 04:20 06/02/18 08:00 Temperature 97.9 F 97.9 F Pulse Rate 77 81 Respiratory Rate 18 17 Blood Pressure 106/50 L 110/56 L Pulse Oximetry 97 96 Intake & Output 06/01/18 06/02/18 06/02/18 18:59 06:59 18:59 Intake Total 960 / 960 250 / 250 Output Total 200 / 200 700 / 700 Balance 760 / 760 -450 / -450 Intake: Oral 960 / 960 250 / 250 Output: Urine 200 / 200 700 / 700 Other: # Voids 3 5 Date of Last Bowel Movement 06/01/18 06/01/18 # Bowel Movements 1 Narrative: GENERAL: This is a well-nourished, well-developed patient, in no apparent distress. CARDIOVASCULAR: Regular rate and rhythm RESPIRATORY: diminished RLL, crackles LLL GASTROINTESTINAL: Abdomen soft, non-tender, nondistended. Normal active bowel sounds MUSCULOSKELETAL: 1+ LE x b/l NEURO: Alert & Oriented x4 to person, place, time, situation. Moves all ext x4 - Urinary Catheter Management Indwelling Urethral Catheter Cath placed during this visit: yes, but has since been removed by the nurse Reason for continuing: Acute urinary retention Insertion date: 05/27/18 Insertion time: 15:05 Removal date: 05/30/18 Removal time: 14:50 Results - Labs CBC & Chem 7: 06/02/18 11:30 06/02/18 11:30 Laboratory Results - last 24 hr 06/01/18 15:30 PT 13.7 H INR 1.4 Assessment and Plan - Assessment (1) Liver cirrhosis Code(s): K74.60 - Unspecified cirrhosis of liver Status: Acute Plan: Liver Cirrhosis Steatohepatitis Recurrent ascites Portal gastropathy - Pt is a 72-year-old male with a history of mild Alzheimer's, GAVE with recurrent anemia requiring frequent transfusions, CML on Gleevec, [place]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 fib with PPM, CAD with hx of [place] s/p stent x2, steatohepatitis with liver cirrhosis, recurrent ascites, esophageal varices and thyroid disease. - During pts recent admission pt was recommended by GI for TIPS procedure. - Patient was admitted to [facility] [place] on 05/22/18 after having TIPS procedure performed by IR. - ammonia level (05/24) 98 (05/25), 104 (05/26), 49 (05/27), 81 (05/28) - increase lactulose to 30ml BID - repeat ammonia level in AM - pt with recurrent abdominal ascites - repeat abd US (05/28) - NOT enough ascitic fluid present for paracentesis - continue PT - repeat right thoracentesis (06/02) - anticipate d/c to home in the next 1-2 days with [facility] & home PT Recurrent Anemia GAVE - Pt was recently admitted from 05/15/18-05/16/18 for anemia and underwent Enteroscopy on (05/16) with Dr. 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 - H/H 8.1/23.3 (05/24) --> 6.6/19.6 (05/25) - Pt transfused additional 2 units PRBCs (05/25/18), 9.1 (05/27), 9.3 (05/28), 8.7 ( 05/29), 8.6 (06/01) - No active bleeding currently - Monitor labs, labs pending for today Cough Post-nasal drip Chest wall pain Hx of pleural effusion - Pt complains of some cough and right sided rib pain when coughing or deep breathing for the last 4-5 days. - He states that he has had a lot of post-nasal drip and has been coughing up some yellow phlegm. - CXR (05/23/18) --> Moderate size right-sided effusion enlarging when compared with the prior study. Right basilar atelectasis. - claritin, mucinex, flonase, duonebs - Pt underwent right thoracentesis (05/26) 900ml fluid removed - (05/29) cough worsening today patient feels as though he is unable to bring anything up. - cough improved - see above CML on Gleevac - Pt follows with Dr. Tran as an outpt A. fib with PPM CAD with hx of [place] - Home meds continued Edema - pt with liver cirrhosis - continue current PO aldactone - creatinine with some improvement 2.37 (06/01) - resume IV lasix 06/01 - repeat BMP in AM - support stockings ordered - observe Bladder retention - alejandro catheter removed - continue flomax - f/u with Urology outpt constipation - improved - encourage ambulation - observe The exam, history, and the medical decision-making described in the above note were completed with the assistance of the mid-level provider. I reviewed and agree with the findings presented. I attest that I had a [id number] encounter with the patient on the same day, and personally performed and documented my assessment and findings in the medical record. pt s/p right thoracentesis today 900cc. having some reexpansion pain. inc spirometer. discussed with dr Tran. 1 unit blood prior to dc today and f/u. (2) Anemia Code(s): D64.9 - Anemia, unspecified Status: Acute (3) Hyperlipidemia Code(s): E78.5 - Hyperlipidemia, unspecified Status: Acute (4) GERD (gastroesophageal reflux disease) Code(s): K21.9 - Gastro-esophageal reflux disease without esophagitis Status: Acute (5) Thyroid disease Code(s): E07.9 - Disorder of thyroid, unspecified Status: Acute (6) HTN (hypertension) Code(s): I10 - Essential (primary) hypertension Status: Acute
--- NOTE | 2018-06-02 10:47 | XR ---
EXAM DATE: 06/02/2018 10:44 AM EDT AGE/SEX: 72 years / Male INDICATIONS: Post right side thoracentesis. CLINICAL DATA: This is the patient's initial encounter. Patient reports that signs and symptoms have been present for 1 day and indicates a pain score of 4/10. MEDICAL/SURGICAL HISTORY: . Hypertension. Gastroesophageal reflux disease. Leukemia. . Pacemak er. Cholecystectomy. Thyroidectomy. Heart artery stent. Port. [place]PAR[place]: [facility] [place] 2V AP&LAT, 05/30/2018. . FINDINGS: The cardiac silhouette is enlarged in transverse diameter. Following thoracentesis no pneumothorax is identified. There is significant reduction in the previously seen effusion. A bipolar pacemaker is i n place via a left sided approach. [id number] is in place via right internal jugular approach with its tip in the superior vena cava. CONCLUSION: No evidence of pneumothorax following thoracentesis. Electronically signed by: Juan Murray MD 06/02/2018 10:46 AM EDT
[2018-06-02] MEDS ORDERED: Sodium Chlor 0.9% Inj 250 ML IV.SIG SCH (11:15)
[2018-06-02] MEDS: Loratadine 10 MG Tablet PO SCH (11:16)
[2018-06-02] MEDS: Docusate Sodium 100 MG Capsule PO SCH ×2 (11:16→21:05)
[2018-06-02] MEDS: guaiFENesin 600 MG ER Tablet PO SCH ×2 (11:16→21:05)
[2018-06-02] MEDS: Metoprolol Tartrate 25 MG Tablet PO SCH (11:16)
[2018-06-02] MEDS: [UNRECOGNIZED DRUG - OTHER] PO SCH (11:17)
[2018-06-02] MEDS: IMATINIB PO SCH (11:17)
[2018-06-02] MEDS: Spironolactone 25 MG Tablet PO SCH ×2 (11:23→18:03)
[2018-06-02 11:59] LABS: Baso % (Auto) 0.4 % (0.0-2.0); Eos # (Auto) 0.2 th/mm3 (0.0-0.4); Eos % (Auto) 2.6 % (0.0-4.0); Hematocrit 24.9 % (39.0-51.0); Hemoglobin 8.3 gm/dL (13.0-17.0); Lymph # (Auto) 0.5 th/mm3 (1.0-4.8); Lymph % (Auto) 8.5 % (9.0-44.0); Mean Corpuscular HGB Conc 33.2 % (32.0-36.0); Mean Corpuscular Hemoglobin 31.7 pg (27.0-34.0); Mean Corpuscular Volume 95.4 fL (80.0-100.0); Mean Platelet Volume 8.1 fL (7.0-11.0); Mono # (Auto) 0.7 th/mm3 (0.0-0.9); Mono % (Auto) 11.6 % (0.0-8.0); Neut # (Auto) 4.8 th/mm3 (1.8-7.7); Neut % (Auto) 76.9 % (16.0-70.0); Platelet Count 79 th/mm3 (150-450); Red Blood Count 2.61 mil/mm3 (4.50-5.90); Red Cell Distribution Width 18.7 % (11.6-17.2); White Blood Count 6.2 th/mm3 (4.0-11.0)
[2018-06-02 12:25] LABS: Calcium 7.4 mg/dL (8.5-10.1); Carbon Dioxide 29.8 meq/L (21.0-32.0); Magnesium 2.2 mg/dL (1.5-2.5)
[2018-06-02 12:53] LABS: Total Protein 4.6 g/dL (6.4-8.2)
[2018-06-02 13:28] LABS: Platelet Morphology Normal (Normal)
--- NOTE | 2018-06-02 13:37 | US ---
EXAM DATE: 06/02/2018 11:13 AM EDT AGE/SEX: 72 years / Male INDICATIONS: Right pleural effusion. CLINICAL DATA: This is the patient's initial encounter. Patient reports that signs and symptoms have been present for 1 day and indicates a pain score of 0/10. MEDICAL/SURGICAL HISTORY: . GERD. HTN. Hyperlipidemia. Leukemia. Liver cirrhosis. Thyroid disease. . Coronary stent. Cholecystectomy. Tonsillectomy. [place] [facility] [place] 05/26/[place]. . FLUID: Total volume of 900 cc of cloudy, red fluid was removed. Fluid was discarded. TECHNIQUE: Ultrasound guidance for thoracentesis. Thoracentesis. The risks, benefits, and alternatives to ultrasound guided thoracentesis were explained to the patien t in lay simple terms, including the risk of bleeding and infection. Written and verbal informed con sent was obtained. Appropriate area for right thoracentesis was marked under ultrasound guidance with the patient in the upright position. Overlying skin was prepped and draped in the usual sterile fashion and with local anesthetic, a dermatotomy was made with an 11 blade scalpel. A 6 Somali thoracentesis catheter was placed in the pleural space and fluid was removed. Catheter was then removed and a sterile dressing applied. There were no immediate complications. The patient tolerated the procedure well and the lef t the ultrasound suite in stable condition. Chest radiograph is to be obtained. CONCLUSION: 1. Uncomplicated right thoracentesis. Electronically signed by: Ras Laws MD 06/02/2018 1:36 PM EDT
--- NOTE | 2018-06-02 14:20 | P.DCO ---
- Physical Therapy Order: Evaluate and treat - Home Health Nursing Order: Medical education, Signs/symptoms of disease process, Nursing assessment with vital signs - Certification I have seen patient Pa Quintero on 06/02/18. My clinical findings support the need for the requested home health care services because: Limited mobility due to disease progression, Deconditioned with increased weakness I certify that my clinical findings support that this patient is homebound because: Impaired cognitive ability/safety
--- NOTE | 2018-06-02 14:44 | P.DS ---
Date of admission: 05/22/18 16:40 Primary care physician: Dwayne Florian MD Attending physician on discharge: Dallas Garcia Anticipated date of discharge: 06/02/18 Brief History from admission: Mr. 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 fib with PPM, CAD with hx of CT s/p stent x2, steatohepatitis with liver cirrhosis, recurrent ascites, esophageal varices and thyroid disease. Pt was recently admitted from 05/15/18-05/16/18 for anemia and underwent Enteroscopy on (05/16) with Dr. 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 At that time pt was recommended by GI for TIPS procedure. Patient was admitted to [facility] on 05/22/18 after having TIPS procedure performed by IR. The [facility] Hospitalist team was consulted to hem with admission and medical management. Pt complains of some cough and right sided rib pain when coughing or deep breathing for the last 4-5 days. He states that he has had a lot of post-nasal drip and has been coughing up some yellow phlegm. He denies any fevers or chills, sore throat, dizziness, weakness, palpitations, chest pain, or SOB. Past Medical Hx: Alzheimer's disease Severe recurrent anemia GAVE CML on Gleevec [place] Feli Syndrome A. fib with PPM CAD with CT stent x 2 Recurrent ascites from cirrhosis Pleural effusions Esophageal varices Thyroid disease Past Surgical Hx: Enteroscopy (05/16) with Dr. Astudillo --> multiple AVMs in stomach & duodenum s/ p cauterization, GAVE, esophageal varices, portal gastropathy, and esophagitis Multiple EGDs Paracentesis Cholecystectomy PTCA with stent placement x2 Right chest nevqua-p-rtio PPM, medronic Sinus surgery Cystoscopy Family Hx: Noncontributory Social Hx: Denies ETOH use or tobacco use DS: Diagnosis - Discharge Diagnosis (1) CML (chronic myeloid leukemia) Status: Acute (2) Liver cirrhosis Status: Acute (3) Anemia Status: Acute (4) HTN (hypertension) Status: Acute (5) Thyroid disease Status: Acute (6) GERD (gastroesophageal reflux disease) Status: Acute (7) Hyperlipidemia Status: Acute DS: Medications - Discharge Medications Prescriptions: lactulose 30 ml PO BID 30 Days #1800 ml tamsulosin 0.4 mg PO DAILY 30 Days #30 cap DS: Summary Hospital Course: Liver Cirrhosis Steatohepatitis Recurrent ascites Portal gastropathy - Pt is a 72-year-old male with a history of mild Alzheimer's, GAVE with recurrent anemia requiring frequent transfusions, CML on Gleevec, [place]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 fib with PPM, CAD with hx of CT s/p stent x2, steatohepatitis with liver cirrhosis, recurrent ascites, esophageal varices and thyroid disease. - During pts recent admission pt was recommended by GI for TIPS procedure. - Patient was admitted to [facility] on 05/22/18 after having TIPS procedure performed by IR. - ammonia level (05/24) 98 (05/25), 104 (05/26), 49 (05/27), 81 (05/28) - increase lactulose to 30ml BID - repeat ammonia level in AM - pt with recurrent abdominal ascites - repeat abd US (05/28) - NOT enough ascitic fluid present for paracentesis - continue PT - repeat right thoracentesis IR removed 900ml 06/02, post procedure CXR showed no pneumothorax - anticipate d/c to home in the next 1-2 days with [facility] & home PT Recurrent Anemia GAVE - Pt was recently admitted from 05/15/18-05/16/18 for anemia and underwent Enteroscopy on (05/16) with Dr. 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 - H/H 8.1/23.3 (05/24) --> 6.6/19.6 (05/25) - Pt transfused additional 2 units PRBCs (05/25/18), 9.1 (05/27), 9.3 (05/28), 8.7 ( 05/29), 8.6 (06/01) - No active bleeding currently - Dr. Garcia discussed case with Dr. Tran who recommended 1 units PRBC Cough Post-nasal drip Chest wall pain Hx of pleural effusion - Pt complains of some cough and right sided rib pain when coughing or deep breathing for the last 4-5 days. - He states that he has had a lot of post-nasal drip and has been coughing up some yellow phlegm. - CXR (05/23/18) --> Moderate size right-sided effusion enlarging when compared with the prior study. Right basilar atelectasis. - claritin, mucinex, flonase, duonebs - Pt underwent right thoracentesis (05/26) 900ml fluid removed - (05/29) cough worsening today patient feels as though he is unable to bring anything up. - cough improved - see above CML on Gleevac - Pt follows with Dr. Tran as an outpt A. fib with PPM CAD with hx of CT - Home meds continued Edema - pt with liver cirrhosis - continue current PO aldactone - creatinine with some improvement 2.37 (06/01) - resume IV lasix 06/01 - repeat BMP in AM - support stockings ordered - observe Bladder retention - alejandro catheter removed - continue flomax - f/u with Urology outpt constipation - improved - encourage ambulation - observe - Time Spent with Patient Total time spent providing and/or coordinating discharge services: Greater than 30 minutes Exam Vital signs: Vital Signs 06/01/18 15:48 06/01/18 15:50 06/01/18 16:00 Temperature 98.2 F Pulse Rate 87 98 H Respiratory Rate 18 18 Blood Pressure 111/53 L Pulse Oximetry 96 97 06/01/18 19:54 06/01/18 20:00 06/02/18 04:20 Temperature 98 F 97.9 F Pulse Rate 98 H 84 77 Respiratory Rate 16 18 18 Blood Pressure 96/46 L 106/50 L Pulse Oximetry 96 97 06/02/18 08:00 06/02/18 09:14 06/02/18 10:30 Temperature 97.9 F 97.5 F L 98.4 F Pulse Rate 81 78 87 Respiratory Rate 17 18 18 Blood Pressure 110/56 L 110/62 110/55 L Pulse Oximetry 96 96 98 06/02/18 10:45 06/02/18 12:00 06/02/18 12:42 Temperature 97.9 F Pulse Rate 86 92 H 88 Respiratory Rate 20 18 16 Blood Pressure 105/56 L 120/50 L Pulse Oximetry 98 97 97 Intake & Output 06/01/18 06/02/1818 18:59 06:59 18:59 Intake Total 960 / 960 250 / 250 Output Total 200 / 200 700 / 700 Balance 760 / 760 -450 / -450 Intake: Oral 960 / 960 250 / 250 Output: Urine 200 / 200 700 / 700 Other: # Voids 3 5 Date of Last Bowel Movement 06/01/18 06/01/18 06/01/18 # Bowel Movements 1 Narrative: GENERAL: This is a well-nourished, well-developed patient, in no apparent distress. CARDIOVASCULAR: Regular rate and rhythm RESPIRATORY: diminished RLL, crackles LLL GASTROINTESTINAL: Abdomen soft, non-tender, nondistended. Normal active bowel sounds MUSCULOSKELETAL: 1+ LE x b/l NEURO: Alert & Oriented x4 to person, place, time, situation. Moves all ext x4 Results Procedures completed during hospitalization: TIPS procedure performed by IR. transfused additional 2 units PRBCs (05/25/18), 9.1 (05/27), 9.3 (05/28), 8.7 (05/29) , 8.6 (06/01) transfused additional 1 unit PRBC O06/02) right thoracentesis (05/26) and (06/02) 900ml fluid removed Labs on day of discharge: Labs from last 24 hours 06/02/18 06/02/18 06/01/18 11:30 11:30 15:30 WBC 6.2 RBC 2.61 L Hgb 8.3 L Hct 24.9 L MCV 95.4 MCH 31.7 MCHC 33.2 RDW 18.7 H Plt Count 79 L MPV 8.1 Prelim Diff (Auto) Slide review pending Neut % (Auto) 76.9 H Lymph % (Auto) 8.5 L [place] % (Auto) 11.6 H Eos % (Auto) 2.6 Baso % (Auto) 0.4 Neut # (Auto) 4.8 Lymph # (Auto) 0.5 L [place] # (Auto) 0.7 Eos # (Auto) 0.2 Baso # (Auto) 0.0 WBC Differential . Diff Scan Auto diff confirmed Differential Comment . Platelet Estimate Low L Platelet Morphology Normal PT 13.7 H INR 1.4 Sodium 138 Potassium 4.0 Chloride 100 Carbon Dioxide 29.8 Anion Gap 8 BUN 47 H Creatinine 2.30 H Estimated GFR 28 L Random Glucose 84 Calcium 7.4 L* Prot Corrected Calcium 8.8 Magnesium 2.2 Total Protein 4.6 L - Impressions ITS Impressions TIPS 05/22/18 00:00 CONCLUSION: 1. Uncomplicated TIPS placement and coil embolization of a dominant gastric varix, as above. 2. PLAN: Baseline ultrasound examination in 2 weeks with surveillance ultrasound at 3 months, 6 months and one year. Abdomen X-Ray 05/26/18 00:00 CONCLUSION: 1. Nonobstructive bowel gas pattern with moderate amount of stool. 2. Faint curved structure projected over the right upper abdomen of unclear significance. Abdomen Ultrasound 05/28/18 00:00 CONCLUSION: Minimal ascites. Chest CT 05/29/18 00:00 CONCLUSION: 1. There is a very small right-sided pneumothorax. The right-sided pleural effusion remains moderate in size. Small pleural effusion on the left. 2. Pacemaker and small pericardial effusion. 3. Dense consolidative right lung with some parenchymal calcifications unchanged since April Chest X-Ray 06/02/18 00:00 CONCLUSION: No evidence of pneumothorax following thoracentesis. Thoracentesis Ultrasound 06/02/18 00:00 CONCLUSION: 1. Uncomplicated right thoracentesis. Discharge Plan - Discharge Disposition Patient Disposition: W/Home Health Service - Discharge Condition Condition: Stable - Discharge Details Anticipated Discharge Date: 06/02/18 - Physicians Team Primary Care Provider: Dwayne Florian Attending Provider: Dallas Garcia Other Providers: Dallas Garcia MD ; [facility] - Rxs /Orders / Referrals /Forms Prescriptions: New lactulose 20 gram/30 mL Solution 30 ml PO BID 30 Days Qty: 1800 RF: 0 tamsulosin 0.4 mg Capsule,Extended Release 24hr 0.4 mg PO DAILY 30 Days Qty: 30 RF: 0 Continue ascorbic acid (vitamin C) 500 mg Tablet 500 mg PO DAILY cholecalciferol (vitamin D3) 2,000 unit Tablet 2,000 unit PO DAILY citalopram 40 mg Tablet 40 mg PO BID furosemide 40 mg Tablet 40 mg PO DAILY imatinib 400 mg Tablet 400 mg PO DAILY levothyroxine 150 mcg Tablet 150 mcg PO DAILY metoprolol tartrate 25 mg Tablet 25 mg PO DAILY pantoprazole 40 mg Tablet,Delayed Release (Dr/Ec) 40 mg PO BID potassium chloride 10 mEq Tablet Extended Release 10 meq PO DAILY simvastatin 5 mg Tablet 5 mg PO QPM spironolactone 25 mg Tablet 25 mg PO BID temazepam 30 mg Capsule 30 mg PO HS Discontinued diphenoxylate-atropine [Lomotil] 2.5-0.025 mg Tablet 1 tab PO Q6-8H PRN (Reason: Diarrhea) Referrals: Dallas Tran MD [Physician] - See Instructions (Follow up in 1 week) Dwayne Florian MD [Primary Care Provider] - See Instructions (Follow up in 1 week) - Discharge Instructions Patient Printed Instructions: Chronic Myeloid Leukemia (DC), Transjugular Intrahepatic Portosystemic Shunt (DC), Fall Prevention (DC) Additional Instructions: RX'S SENT AT TIME OF DISCHARGE. FOLLOW UP WITH YOUR PRIMARY CARE PROVIDER IN 3-4 DAYS. NO DRIVING WHILE TAKING NARCOTIC PAIN MEDICINE. IF YOU HAVE ANY INCREASED SHORTNESS OF BREATH, CHEST PAINS, OR WHEEZING, RETURN TO THE EMERGENCY DEPARTMENT. IT HAS BEEN OUR PLEASURE TAKING CARE OF YOU! WE HOPE THAT YOU HAVE HAD AN EXCEPTIONAL STAY HERE AT [facility]! - Post Discharge Care Plan Care Plan Goals: Your Health Problems: Goals to Promote Your Health: * To prevent worsening of your condition * To maintain your health at the optimal level Directions to Meet Your Goals: * Take your medications as prescribed * Follow your dietary instruction * Follow activity as directed * Keep your appointments as scheduled * Take your immunizations and boosters as scheduled * If your symptoms worsen call your PCP * If no PCP go to Urgent Care or Emergency Room Smoking is dangerous to your health. Avoid second hand smoke. You may reach the 24-hour crisis hotline for domestic abuse at .
== END 2018-06-02 21:19 | disposition home health service (06) ==
LOC: HRAD 11:41 → HRIP 11:42 → N06 18:41
PROVIDERS: ADMIT Hospitalist; ATTEND Hospitalist